=== PATIENT | male | born 1955 | race Caucasian/White ===

== ENCOUNTER 2020-02-11 15:45 | Inpatient (IN) | payer MEDICARE, SELFPAY ==
--- NOTE | ~2020-02-11 | XR_ITS ---
EXAMINATION: XR chest 1V portable 02/11/2020 19:09 INDICATION: Hyperglycemia. Dyspnea. PROCEDURE: AP portable chest COMPARISON: 09/18/2012 FINDINGS: The lungs are clear. The cardiomediastinal silhouette is within normal limits. There are no pleural effusions. There is no pneumothorax suspected. IMPRESSION: 1: NO ACUTE CARDIOPULMONARY DISEASE. Reviewed, dictated and finalized at location A.
[2020-02-11 16:07] VITALS: BP 116/73; PULSE 76; RESP 16; TEMP 37.1; O2SAT 95
[2020-02-11 16:17] LABS: Glucose Point of Care > 500 (65-105)
[2020-02-11 17:15] LABS: Basophils Percent Auto 0.3 % (0.2-1.2); Eosinophils Absolute Auto 0.1 K/mm3 (0-0.3); Eosinophils Percent Auto 0.7 % (0-4.4); Hematocrit 44.7 % (42.0-52.0); Hemoglobin 15.9 g/dL (14.0-18.0); Immature Granulocyte Absolute 0.06 K/mm3 (0.00-0.031); Immature Granulocyte Percent A 0.6 % (0-0.5); Lymphocytes Absolute Auto 3.59 K/mm3 (0.9-3.2); Lymphocytes Percent Auto 33.5 % (18.3-44.2); Mean Corpuscular HGB Conc 35.6 g/dl (32-36); Mean Corpuscular Hemoglobin 30.1 pg (26-34); Mean Corpuscular Volume 84.7 fl (80-100); Monocytes Absolute Auto 0.8 K/mm3 (0.1-0.6); Monocytes Percent Auto 7.4 % (2.6-8.5); Neutrophils Absolute Auto 6.2 K/mm3 (1.3-6.7); Neutrophils Percent Auto 57.5 % (45.5-73.1); Platelet Count Result 282 k/mm3 (150-375); Red Blood Count 5.28 M/mm3 (4.6-6.20); Red Cell Distribution Width 11.9 % (11.5-14.5); White Blood Count 10.7 K/mm3 (4.5-10.0)
[2020-02-11 17:18] LABS: Add Urine Microscopic? YES; Appearance Urine Clear (Clear); Bilirubin Urine Negative (Negative); Blood Urine Negative (Negative); Color Urine Straw (Yellow); Glucose Urine UA 3+ mg/dL (Negative); Ketones Urine Trace mg/dL (Negative); Leukocyte Esterase Ur Negative LEU/UL (Negative); Nitrate Urine Negative (Negative); Protein Urine Negative (Negative); RBC Urine 0-2 /hpf (0-2); Urobilinogen Urine Negative mg/dL (<2.0); WBC Urine 0-3 /hpf
[2020-02-11 17:25] LABS: Alanine Aminotransferase 32 U/L (4-50); Albumin Level 4.2 g/dL (3.5-5.1); Alkaline Phosphatase 96 U/L (38-126); Anion Gap 17.9 mmol/L (7-16); Aspartate Amino Transferase 24 U/L (17-59); Bilirubin,Total 0.5 mg/dL (0.2-1.3); Blood Urea Nitrogen 34 mg/dL (9-20); Calcium 9.2 mg/dL (8.4-10.2); Carbon Dioxide 22 mmol/L (22-30); Chloride 88 mmol/L (98-107); Estimated CRCL calculation 61 ml/min; Estimated Glomerular Filt Rate > 60; Glucose 451 mg/dL (75-110); Magnesium 1.9 mg/dL (1.6-2.3); Phosphorus 3.7 mg/dL (2.5-4.5); Potassium 3.9 mmol/L (3.4-5.0); Sodium 124 mmol/L (137-145)
[2020-02-11] MEDS: SODIUM CHLORIDE 0.9% IV 1,000 ML 999 ML IV CONT ×2 (17:29→17:50)
--- NOTE | 2020-02-11 17:40 | PC.NURSE ---
verbal order to hold insulin drip at this time per Blas LAUGHLIN
[2020-02-11] MEDS: INSULIN HUMAN REGULAR (*BKC) 100 UNITS/ML 10 UNITS IV PUSH (17:47)
[2020-02-11 17:59] VITALS: BP 119/86; PULSE 71; RESP 14; O2SAT 100
[2020-02-11 18:11] LABS: Alveolar/Arterial O2 Gradient 22.4 mmHg; Base Excess ABG -3.2 mEq/l (+/-2.0); Carboxyhemoglobin 0.5 % THb (0-2.0); Fractional Inspired Oxygen 21 %; HCO3 ABG 19.7 mEq/l (22.0-26.0); Methemoglobin ABG 0.2 %THb (0-1.5); Oxygen Content ABG 20.3 %vol (16.0-22.0); Oxygen Saturation ABG 97.3 % (95.0-100.0); Oxyhemoglobin 95.9 % THb (90.0-100.0); PCO2 ABG 29.9 mmHg (35.0-45.0); PO2 ABG 91.5 mmHg (80.0-100.0); PO2 FiO2 Ratio Arterial Blood 4.36 %; Reduced Hemoglobin 3.4 %THb (0-5.0); pH ABG 7.437 (7.350-7.450)
--- NOTE | 2020-02-11 18:11 | ED.GENADULT ---
HPI - General Adult General Chief complaint: Unspecified <QIAN Haq Last Filed: 02/11/20 18:51> Stated complaint: confusion, wobbly <QIAN Haq Last Filed: 02/11/20 18:51> Time Seen by Provider: 02/11/20 16:49 <QIAN Haq Last Filed: 02/11/20 18:51> Source: patient <QIAN Haq Last Filed: 02/11/20 18:51> Mode of arrival: ambulatory <QIAN Haq Last Filed: 02/11/20 18:51> Limitations: no limitations <QIAN Haq Last Filed: 02/11/20 18:51> History of Present Illness HPI narrative: Patient is a 64-year-old male who presents to emergency department for evaluation of feeling fatigued and not well over the course of the last month noting that he quit taking his diabetic medications patient in the last week began his diabetic medications again patient denies recent illness vomiting diarrhea chest pain shortness of breath has not been seen for this complaint presents per private vehicle in no distress <QIAN Haq Last Filed: 02/11/20 18:51> Related Data Home medications: Home Medications Medication Instructions Recorded Confirmed carvedilol 02/11/20 cyanocobalamin (vitamin B-12) 1,000 mcg PO DAILY 02/11/20 felodipine mg PO 02/11/20 glucosamine-chondroitin [Osteo 2 tablet PO TID 02/11/20 Bi-Flex] indapamide mg 02/11/20 rclax-[id number]-epa-fish oil [[place]-3 cap PO 02/11/20 Fish Oil] pioglitazone-metformin tablet 02/11/20 quinapril mg 02/11/20 <QIAN Haq Last Filed: 02/11/20 18:51> Allergies/adverse reactions: Allergies Allergy/AdvReac Type Severity Reaction Status Date / Time atorvastatin Allergy Unknown Unknown Verified 02/11/20 16:44 Sulfa (Sulfonamide Allergy Unknown Unknown Verified 02/11/20 16:44 Antibiotics) sulfanilamide Allergy Unknown Unknown Verified 02/11/20 16:44 <QIAN Haq Last Filed: 02/11/20 18:51> Review of Systems Review of Systems: All systems reviewed & are unremarkable except as noted in HPI and below <Ryan Garcia PA-C - Last Filed: 02/11/20 18:51> [facility] Past Medical History Medical History: Medical History (Updated 02/11/20 @ 18:50 by Ryan Garcia PA-C) Diabetes mellitus Hx of medication noncompliance Hypertension Obesity <Ryan Garcia PA-C - Last Filed: 02/11/20 18:51> Family History Family History: Family History Mother Family history of obesity Hypertension Family history of elevated blood lipids Family history of diabetes mellitus in first degree relative Family history of heart disease in male family member before age 55 Family history of congestive heart failure Sibling Family history of diabetes mellitus in first degree relative Family history of lupus erythematosus Other Diabetes mellitus Family history of kidney disease <Ryan Garcia PA-C - Last Filed: 02/11/20 18:51> Social History Social History: Social History Smoking status: Never smoker Alcohol intake: never Substance use type: marijuana <Ryan Garcia PA-C - Last Filed: 02/11/20 18:51> Exam Narrative: Exam Narrative: GENERAL: Well-appearing, obese, and in no acute distress. HEAD: Normocephalic, atraumatic. EYES: PERRLA and EOMI. ENT: Nares clear, no rhinorrhea or epistaxis. Mucous membranes moist. Oropharynx without tonsillar hypertrophy exudate or other lesions. CHEST: Clear to auscultation. No respiratory distress. No wheezes rales or rhonchi HEART: Regular rate and rhythm. No murmur heard. Normal peripheral pulses. ABDOMEN: Soft, nontender, nondistended EXTREMITIES: Normal range of motion. No edema. SKIN: Warm, dry, no rash. NEURO: No focal deficits. Alert and oriented x3. PSYCH: Normal mood and affect. <Ryan Garcia PA-C - Last F
[2020-02-11 18:12] LABS: Device ROOM AIR; Site Drawn RIGHT BRACHIAL
[2020-02-11 18:32] LABS: Glucose Point of Care 363 (65-105)
--- NOTE | 2020-02-11 20:00 | PM.IMHP ---
H&P: HPI History of Present Illness Chief complaint: Weakness and fatigue. Narrative: Michael Salinas is a very pleasant 64-year-old male with type 2 diabetes mellitus, hypertension, and dyslipidemia who presented to the emergency department earlier today at the direction of his primary care provider for evaluation of weakness and fatigue that has been ongoing for a couple of months. He stopped taking his oral hypoglycemics last year after reading about the side effects and he admits that he has not been checking his glucose since that time. A couple of weeks ago he saw his primary care provider for evaluation of fatigue, occasional lightheadedness on standing, nausea, generalized malaise, and indigestion. At that time he reported four tick bites recently, and it sounds as though he was prescribed doxycycline. He was also told to resume his oral hypoglycemics as lab work demonstrated hyperglycemia. He completed the course of antibiotics but felt no better, and when he called her today he was instructed to come to the emergency department. On arrival to the emergency department, he was found to have a random glucose of 451 with evidence of dehydration is he is being admitted in this setting. Since receiving IV fluid rehydration insulin, he reports feeling much better. With further questioning he has been experiencing blurry vision, polydipsia, and polyuria for several months. He denies nonhealing wounds and paresthesias. He has not had fever, chills, or sweats. No vertigo. No focal weakness. He denies chest pain, pleuritic pain, palpitations, and shortness of breath. No nausea, vomiting, diarrhea, or dysuria. Review of Systems Review of Systems: Narrative: Twelve systems were reviewed with pertinent positives and negatives as per HPI. No history of sleep apnea. He denies orthopnea, PND, and daytime somnolence. He does not check his glucose at home. No recent travel or sick contacts. Occasional indigestion. No melena or hematochezia. Except as documented, all other systems were reviewed and are negative. [facility] Past Medical History Medical History (Updated 02/11/20 @ 23:31 by Faith Bender PA-C) Bladder stones Degenerative disc disease Diverticulitis Hyperlipidemia Hypertension Kidney stones Uncontrolled type 2 diabetes mellitus Hemoglobin A1c was 13% on 02/11/2020. Surgical History Surgical History (Updated 02/11/20 @ 23:29 by Faith Bender PA-C) History of appendectomy History of cystoscopy History of lithotripsy Family History Family History Mother Family history of heart disease in male family member before age 55 Family history of elevated blood lipids Family history of diabetes mellitus in first degree relative Family history of obesity Family history of congestive heart failure Hypertension Sibling Family history of diabetes mellitus in first degree relative Family history of lupus erythematosus Mesothelioma Other Diabetes mellitus Family history of kidney disease Social History Social History (Updated 02/11/20 @ 23:30 by Faith Bender PA-C) Social History: Surrogate decision maker: Dennise Salinas, . Code status: Full code. Smoking status: Never smoker Alcohol intake: never Substance use: current Substance use type: marijuana Additional living arrangements comments: Lives with his and son in [place]. 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 Spiritual care concerns: No Meds Home Medications and Allergies Home Medications Medication Instructions Recorded Confirmed Type carvedilol 6.25 mg PO Q12H 02/11/20 02/11/20 History cyanocobalamin (vitamin B-12) 1,000 mcg PO DAILY 02/11/20 02/11/20 History felodipine 10 mg PO DAILY 02/11/20 02/11/20 History glucosamine-chondroitin [Osteo 1 tablet PO BID 02/11/20 02/11/20 History Bi-Flex]
[2020-02-11 20:30] VITALS: BP 151/91; PULSE 75; RESP 20; TEMP 36.4; O2SAT 99; BMI 36.1
[2020-02-11 20:37] VITALS: PULSE 79
[2020-02-11 20:40] LABS: Glucose Point of Care 276 (65-105)
[2020-02-11] MEDS: LACTATED RINGERS 1,000 ML 125 ML IV CONT (20:53)
--- NOTE | 2020-02-11 21:11 | ADMGEN ---
This patient, Michael Salinas, was admitted to IMU Room 212-01. Patient/family oriented to hospital policies and general routines including ID bracelet, bed and alarms, visiting hours, pain management, procedures, bathroom and other care routines, personal items, smoking policy, room service/diet, and visiting hours. Valuables list has been completed. Information on how to activate the Rapid Response Team has been discussed. Patient/Family are encouraged to report perceived risks to care and to ask questions if they do not understand what they are told or what they should do.
[2020-02-11 21:14] LABS: Anion Gap 13.6 mmol/L (7-16); Blood Urea Nitrogen 29 mg/dL (9-20); Calcium 8.5 mg/dL (8.4-10.2); Carbon Dioxide 26 mmol/L (22-30); Chloride 93 mmol/L (98-107); Estimated CRCL calculation 71 ml/min; Estimated Glomerular Filt Rate > 60; Glucose 279 mg/dL (75-110); Potassium 3.6 mmol/L (3.4-5.0); Sodium 129 mmol/L (137-145)
[2020-02-11] MEDS: FAMOTIDINE 20 MG/2 ML VIAL IV PUSH (21:25)
[2020-02-11 22:00] VITALS: PULSE 84
[2020-02-11 23:24] VITALS: BP 115/76; PULSE 72; RESP 18; TEMP 36.4; O2SAT 99
[2020-02-12] VITALS (10 sets, daily range): BP systolic 95–119; BP diastolic 60–70; PULSE 57–77; RESP 18–20; TEMP 35.7–37.1; O2SAT 97–98; BMI 36.1
[2020-02-12 00:35] LABS: Glucose Point of Care 406 (65-105)
[2020-02-12] MEDS: carvediloL 6.25 MG TABLET PO ×2 (00:46→08:42)
[2020-02-12] MEDS: lisinopriL 20 MG TABLET 40 MG PO ×2 (00:47→08:42)
[2020-02-12] MEDS: INSULIN GLARGINE (*BKC) 100 UNITS/ML 20 UNITS SUB-Q (00:48)
[2020-02-12] MEDS: INSULIN ASPART (*BKC) 100 UNITS/ML 10 UNITS SUB-Q (00:59)
[2020-02-12 05:29] LABS: Glucose Point of Care 252 (65-105)
[2020-02-12 05:31] LABS: Alanine Aminotransferase 24 U/L (4-50); Albumin Level 3.3 g/dL (3.5-5.1); Alkaline Phosphatase 44 U/L (38-126); Anion Gap 9.2 mmol/L (7-16); Aspartate Amino Transferase 23 U/L (17-59); Bilirubin,Total 0.6 mg/dL (0.2-1.3); Blood Urea Nitrogen 21 mg/dL (9-20); Calcium 8.2 mg/dL (8.4-10.2); Carbon Dioxide 27 mmol/L (22-30); Chloride 94 mmol/L (98-107); Estimated CRCL calculation 99 ml/min; Estimated Glomerular Filt Rate > 60; Glucose 220 mg/dL (75-110); Magnesium 1.9 mg/dL (1.6-2.3); Potassium 3.2 mmol/L (3.4-5.0); Sodium 127 mmol/L (137-145)
[2020-02-12] MEDS: LACTATED RINGERS 1,000 ML 100 ML IV CONT (05:31)
[2020-02-12 08:15] LABS: Glucose Point of Care 237 (65-105)
[2020-02-12] MEDS: CYANOCOBALAMIN 1,000 MCG TABLET 1000 MCG PO (08:42)
[2020-02-12] MEDS: FELODIPINE 5 MG TAB CR 10 MG PO (08:42)
[2020-02-12] MEDS: INSULIN ASPART (*BKC) 100 UNITS/ML SUB-Q ×2 (08:42→12:42)
[2020-02-12] MEDS: INDAPAMIDE 1.25 MG TABLET PO (08:42)
[2020-02-12 11:57] LABS: Glucose Point of Care 409 (65-105)
--- NOTE | 2020-02-12 14:01 | PCNSR ---
On 02/12/20, the student, Blas Alcala, provided care and completed [facility] documentation on this patient. I have reviewed the student's documentation and agree with the findings.
--- NOTE | 2020-02-14 09:40 | PM.DS ---
DS: Admitting Diagnosis Admitting Diagnosis Admitting Diagnosis: Date of discharge Type 2 diabetes mellitus with hyperglycemia DS: Discharge Diagnosis Discharge Diagnosis (1) Uncontrolled type 2 diabetes mellitus: Code(s): E11.65 - Type 2 diabetes mellitus with hyperglycemia Status: Acute Assessment and Plan: Pt is meant to be on pioglitazone/metformin, oral hypoglycemic medications, unfortunately, pt has been missing his medications Hemoglobin A1c is 13%, thus will start on Lantus tonight. Dietitian and in service educator consulted. Pt started on solostar lantus pen on discharge and adviced to follow with DM educator and stick to DM diet Pt would like to go home today, sugars appear in the 200s today Pt given glucometer, test trips, pen needle and solostar script on dischrage. Pt here for one day in the hospital meets observation status (2) Dehydration: Code(s): E86.0 - Dehydration Status: Resolved Assessment and Plan: Resolved after fluid hydration (3) Hyponatremia: Code(s): E87.1 - Hypo-osmolality and hyponatremia Status: Acute Assessment and Plan: Mild hyponatremia chronic, sodium presently 127 Likely due to indapamide. (4) Hypertension: Code(s): I10 - Essential (primary) hypertension Status: Acute Assessment and Plan: Blood pressures were reviewed and they are well controlled. Continue antihypertensives and monitor. DS: Summary Time Spent with Patient Time attestation: Total time spent providing and/or coordinating discharge services:40 minutes on day of discharge Exam Const: General: well developed Nutritional Appearance: well nourished HENMT: Head: normocephalic Eyes: General: appearance normal, both eyes and all related structures Pupils: Equal, round and reactive pupils present Neck: Neck: supple Chest: Chest palpation & inspection: normal inspection of the chest Resp: Effort & Inspection: normal respiratory effort Auscultation: clear to auscultation bilaterally Cardio: Jugular venous distension: no JVD Rhythm: regular rhythm Heart sounds: S1 normal heart sound present and S2 normal heart sound present GI: Inspection: normal to inspection GI Palp: No abdominal tenderness, Yes Soft to palpation and No Tenderness to palpation present (GI) Auscultation: normal bowel sounds Skin: General skin exam: normal color and dry skin Neuro: Cranial nerves: Yes CN's II-XII intact bilaterally and Yes Equal, round and reactive pupils present Cognition (Neuro): normal cognition Speech: normal speech Motor exam (neuro): 5/5 motor strength present throughout Extrem: General: normal to inspection Psych: Appearance: grossly normal Mental Status: mental status grossly normal Discharge Plan Discharge Attending physician on discharge: Petty Patel Consulting providers: Ryan Garcia Discharging Clinician: Petty Patel Anticipated Discharge Date/Time: 02/12/20 16:40 Patient Disposition: Home, Self-Care Activity: as tolerated Diet: diabetic Discharge Instructions: Pt to start taking lantus at night Pt to follow with in service educator on discharge Compliance to DM medications Compliance to ACCUCHECK monitoring Patient Instructions: Pain Management (GEN) Stand Alone Forms: General Discharge Information Follow-up/Referrals: Jett,QIAN King [Primary Care Provider] - Discharge Medications: New metformin [Glucophage] 850 mg Tablet 850 mg PO QPM Qty: 30 RF: 3 Lantus Solostar U-100 Insulin 100 unit/mL (3 mL) insulin pen 20 unit SUB-Q QPM Qty: 3 RF: 3 (DME) pen needle, diabetic [Advocate Pen Needle] 29 gauge x 1/2
== END 2020-02-12 13:35 | disposition home or self-care (01) | DRG 638 ==
LOC: ANHED 19:02 → ANHIMU 21:13
PROVIDERS: Emergency Medicine Emergency Medical Services; Physician Assistant; Admitting Provider Internal Medicine; Emergency Provider Emergency Medicine; PCP Physician Assistant; Visit Provider Family Medicine
DX: E11.65 Type 2 diabetes mellitus with hyperglycemia (principal); E87.1 Hypo-osmolality and hyponatremia; T46.5X5A Adverse effect of other antihypertensive drugs, initial encounter; E86.0 Dehydration; I10 Essential (primary) hypertension; E78.5 Hyperlipidemia, unspecified; E66.9 Obesity, unspecified; Z68.36 Body mass index [BMI] 36.0-36.9, adult; Z91.14 Patient's other noncompliance with medication regimen; Z79.899 Other long term (current) drug therapy
CPT/HCPCS: 36415; 36600; 71045; 80048; 80053; 81001; 82010; 82375; 82805; 82948; 83036; 83050; 83735; 84100; 84443; 85025; 96361; 96374; 99285; A9270; J1815; J7030; J7120

== ENCOUNTER → 2021-11-17 13:30 | Outpatient (CLI) | payer MEDICARE, SELFPAY ==
--- NOTE | ~2021-11-17 | MR_ITS ---
EXAMINATION: MR lumbar spine wo con DATE: 11/17/2021 13:59 INDICATION: Low back pain. Degeneration of lumbar intervertebral disc. TECHNIQUE: Magnetic resonance imaging (MRI) of the lumbar spine was performed without intravenous con trast. Sequences included sagittal T2-weighted FSE, sagittal T2-weighted FS FSE, sagittal T1-weighted FSE, and axial T2-weighted FSE. COMPARISON: Lumbar spine MRI 08/15/2017 FINDINGS: There is 3 degrees levocurvature of lumbar spine. There is mild chronic height loss of T11 and T12 vertebral bodies. There are Schmorl's nodes at T10-T11 and T11-T12. There is mildly decreased disc height at T11-T12. Epidural lipomatosis is noted. The distal spinal cord signal intensity is no rmal. The conus medullaris is at T12-L1. The following disc levels are specifically discussed: L1-L2: The disc does not extend beyond the endplate margin. There is mild bilateral facet joint osteo arthritis. There is no neural foraminal stenosis. There is no central canal stenosis. L2-L3: The disc does not extend beyond the endplate margin. There is mild right facet joint osteoarth ritis. There is no neural foraminal stenosis. There is no central canal stenosis. L3-L4: The disc is mildly bulging. There is mild bilateral facet joint osteoarthritis. There is mild bilateral neural foraminal stenosis. There is no central canal stenosis. L4-L5: The disc is bulging and has an annular fissure. There is severe bilateral facet joint osteoart hritis. There is moderate bilateral neural foraminal stenosis. There is mild central canal stenosis. L5-S1: The disc does not extend beyond the endplate margin. There is severe right and moderate left f acet joint osteoarthritis. There is mild bilateral neural foraminal stenosis. There is no central can al stenosis. IMPRESSION: 1. Mild lumbar spondylosis, stable from 08/15/2017. Reviewed, dictated and finalized at location B.
== END ==
PROVIDERS: PCP Physician Assistant; Visit Provider Physician Assistant
DX: M51.36 Other intervertebral disc degeneration, lumbar region (principal); M47.896 Other spondylosis, lumbar region
CPT/HCPCS: 72148

== ENCOUNTER 2024-10-24 00:31 | Day surgery (SDC) | payer MEDICARE, SELFPAY ==
[2024-10-16 14:19] VITALS: BMI 36.6
--- OUTSIDE RECORDS SUMMARY | 2024-10-24 00:34 | XMS_ITS | Data Portability ---
Author Organization [place] [facility], Main Office Address [address] [place] [address] Assessment Encounter Date Assessment Date Assessment LastModified by Organization Details LastModified Time 06/21/2023 06/21/2023 colonoscopy 2019 UTD [email or web address] Not available 06/21/2023 14:57:44 Plan of Treatment Reminders Order Date Submit Date Provider Last Modified By Organization Details Last Modified Time Details Appointments None recorded. Lab PSA, total, serum or plasma 2022 023 [email or web address] [facility], 2022 Christina [address], [place], [address], 3 14:49:41 HbA1c (hemoglobin A1c), blood 2022 023 [email or web address] 146 [facility], 2022 Christina Nicole[address], [place], [address], 3 12:14:26 HbA1c (hemoglobin A1c), blood 2022 023 [email or web address] [facility], 2022 Christina [address], [place], [address], 3 14:44:33 microalbumi n, urine 2022 023 [email or web address] [facility], 2022 Christina [address], [place], [address], 3 14:49:51 albumin/cre atinine, mass ratio, urine 2022 023 [email or web address] [facility], 2022 Christina [address], [place], [address], 3 14:50:02 CBC w/ auto diff 2022 023 [place] [address] [facility], 2022 Christina [address], [place], [address], 3 12:14:27 hepatic function panel, serum 2022 023 [place] [address] [facility], 2022 Christina [address], [place], [address], 3 12:14:27 BMP, serum or plasma 2022 023 [place] [address] [facility], 2022 Christina Nicole[address], [place], [address], 3 12:14:27 TSH + free T4, serum 2022 023 ALEX [facility], 2022 Christina Nicoel[address], [place], [address], 3 16:00:05 BMP, serum or plasma 2022 023 [email or web address] [facility], 2022 Christina Nicole[address], [place], [address], 3 14:44:58 hepatic function panel, serum 2022 023 [email or web address] [facility], 2022 Christina [address], [place], [address], 3 14:45:46 CBC w/ auto diff 2022 023 [email or web address] [facility], 2022 Christina [address], [place], [address], 3 14:49:32 lipid panel, serum 2022 023 [email or web address], 2022 Christina Nicole[address], [place], [address], 3 12:14:26 lipid panel, serum 2022 023 [email or web address] [facility], 2022 Christina [address], [place], [address], 14:44:47 Referral None recorded. Procedures None recorded. Surgeries None recorded. Imaging None recorded. Medication Orders Mounjaro 2.5 mg/0.5 mL subcutaneou s pen injector 2022 023 [id number], [address], [place], [place], [id number], 14:52:51 Patient TargetsNo targets recorded. Patient InstructionsNo instructions recorded. Reason for Referral None Reported. Results Created Date Observation Date Name Description Value Unit Range Abnormal Flag Note LastModifiedBy Organization Detail LastModifiedTime 05/12/2005/13/2021 PROST ATE-S PECIF IC AG prostate specific Ag 1.5 NG/mL 0.0-4. 0 Mykel ECLIA metho dolog y. Accor ding to the [employer]i can [employer] n, Serum PSA shoul d decre ase and remai n at undet ectab le level s after radic al prost atect vidhi. The AUA defin es bioch emica l recur rence as an initi al PSA value 0.2 ng/mL or great er follo wed by a subse quent confi rmato ry PSA value 0.2 ng/mL or great er. Value s obtai hugo with diffe rent assay metho ds or kits canno t be used inter post eamisaely . Resul ts canno t be inter prete d as absol pilar evide nce of the prese nce or absen ce of ilana rangel se. Not Available [facility] ([facility]) [address], [place], [address], 05/13/2021 10:37:13 05/12/20 21 05/13/2021 HEMOG LOBIN A1C hemoglobin A1C 7.4 % 4.8-5. 6 above high normal Predi abete s: 5.7 - 6.4 Diabe bernie: >6.4 Glyce mabel contr ol for adult s with diabe bernie: <7.0 Not Available [facility] ([facility]) [address] [place], [address], 05/13/2021 10:37:13 05/12/20 21 05/13/2021 ALBUM IN/CR EATIN INE RATIO ,URIN E creatinine, urine 62.3 mg/dL not estab. Not Available [facility] ([facility]) [address] [place], [address], 05/13/2021 10:37:12 05/12/20 21 05/13/2021 ALBUM IN/CR EATIN INE RATIO ,URIN E albumin, urine 5.2 ug/mL not estab. Not Available [facility] ([facility]) [address] [place], [address], 05/13/2021 10:37:12 05/12/20 21 05/13/2021 ALBUM IN/CR EATIN INE RATIO ,URIN E alb/creat ratio 8 mg/g_ creat 0-29 Lanny l: 0 - 29 Moder ately incre ased: 30 - 300 Sever serenity incre ased: >300 Not Available [facility] ([facility]) [address] [place], [address], 05/13/2021 10:37:12 05/12/20 21 05/13/2021 HEPAT IC FUNCT ION PANEL (7) protein, total 7.1 g/dL 6.0-8. 5 Not Available [facility] ([facility]) [address] [place], [address], 05/13/2021 10:37:12 05/12/20 21 05/13/2021 HEPAT IC FUNCT ION PANEL (7) albumin 4.5 g/dL 3.8-4. 8 Not Available [facility] ([facility]) [address] [place], [address], 05/13/2021 10:37:12 05/12/20 21 05/13/2021 HEPAT IC FUNCT ION PANEL (7) bilirubin, total 0.8 mg/dL 0.0-1. 2 Not Available [facility] ([facility]) [address], [place], [address], 05/13/2021 10:37:12 05/12/20 21 05/13/2021 HEPAT IC FUNCT ION PANEL (7) bilirubin, direct 0.23 mg/dL 0.00-0 .40 Not Available [facility] ([facility]) [address], [place], [address], 05/13/2021 10:37:12 05/12/20 21 05/13/2021 HEPAT IC FUNCT ION PANEL (7) alkaline phosphatase 56 IU/L 44-121 Ple ase note refer ence inter joseph post e Not Available [facility] ([facility]) [address] [place], [address], 05/13/2021 10:37:12 05/12/20 21 05/13/2021 HEPAT IC FUNCT ION PANEL (7) AST (SGOT) 20 IU/L 0-40 Not Available [facility] ([facility]) [address], [place], [address], 05/13/2021 10:37:12 05/12/20 21 05/13/2021 HEPAT IC FUNCT ION PANEL (7) ALT (SGPT) 24 IU/L 0-44 Not Available [facility] ([facility]) [address], [place], [address], 05/13/2021 10:37:12 05/12/20 21 05/13/2021 LIPID PANEL cholesterol, total 150 mg/dL 100-19 9 Not Available [facility] ([facility]) [address], [place], [address], 05/13/2021 10:37:11 05/12/20 21 05/13/2021 LIPID PANEL triglyceride s 124 mg/dL 0-149 Not Available [facility] ([facility]) [address] [place], [address], 05/13/2021 10:37:11 05/12/20 21 05/13/2021 LIPID PANEL HDL cholesterol 44 mg/dL >39 Not Available [facility] ([facility]) [address] [place], [address], 05/13/2021 10:37:11 05/12/20 21 05/13/2021 LIPID PANEL VLDL cholesterol fanny 22 mg/dL 5-40 Not Available [facility] ([facility]) [address], [place], [address], 05/13/2021 10:37:11 05/12/20 21 05/13/2021 LIPID PANEL LDL chol calc ([facility]) 84 mg/dL 0-99 Not Available [facility] ([facility]) [address], [place], [address], 05/13/2021 10:37:11 05/12/20 21 05/13/2021 LIPID PANEL comment: manager [place] Not Available [facility] ([facility]) [address] [place], [address], 05/13/2021 10:37:11 05/12/20 21 05/13/2021 BASIC METAB OLIC PANEL (8) glucose 126 mg/dL 65-99 above high normal Not Available [facility] ([facility]) [address] [place], [address], 05/13/2021 10:37:11 05/12/20 21 05/13/2021 BASIC METAB OLIC PANEL (8) BUN 10 mg/dL 8-27 Not Available [facility] ([facility]) [address], [place], [address], 05/13/2021 10:37:11 05/12/2005/13/2021 BASIC METAB OLIC PANEL (8) creatinine 0.82 mg/dL 0.76-1 .27 Not Available [facility] ([facility]) [address], [place], [address], 05/13/2021 10:37:11 05/12/20 21 05/13/2021 BASIC METAB OLIC PANEL (8) eGFR if nonafricn AM 93 mL/mi n/1.7 3 >59 Not Available [facility] ([facility]) [address], [place], [address], 05/13/2021 10:37:11 05/12/20 21 05/13/2021 BASIC METAB OLIC PANEL (8) eGFR if africn AM 107 mL/mi n/1.7 3 >59 In accor dance with recom menda tions from the NKF-A SN Task force , [facility] is in the proce ss of updat ing its eGFR calcu latio n to the 2020 CKD-E PI creat inine equat ion that estim ates kidne y funct ion witho ut a race varia ble. Not Available [facility] ([facility]) [address], [place], [address], 05/13/2021 10:37:11 05/12/2005/13/2021 BASIC METAB OLIC PANEL (8) BUN/creatini ne ratio 12 10-24 Not Available [facility] ([facility]) [address], [place], [address], 05/13/2021 10:37:11 05/12/20 21 05/13/2021 BASIC METAB OLIC PANEL (8) sodium 139 mmol/ L 134-14 4 Not Available [facility] ([facility]) [address], [place], [address], 05/13/2021 10:37:11 05/12/20 21 05/13/2021 BASIC METAB OLIC PANEL (8) potassium 4.0 mmol/ L 3.5-5. 2 Not Available [facility] ([facility]) [address] [place], [address], 05/13/2021 10:37:11 05/12/20 21 05/13/2021 BASIC METAB OLIC PANEL (8) chloride 97 mmol/ L 96-106 Not Available [facility] ([facility]) [address] [place], [address], 05/13/2021 10:37:11 05/12/2005/13/2021 BASIC METAB OLIC PANEL (8) carbon dioxide, total 25 mmol/ L 20-29 Not Available [facility] ([facility]) [address] [place], [address], 05/13/2021 10:37:11 05/12/2005/13/2021 BASIC METAB OLIC PANEL (8) calcium 9.6 mg/dL 8.6-10 .2 Not Available [facility] ([facility]) [address] [place], [address], 05/13/2021 10:37:11 05/12/2005/13/2021 URINA LYSIS , COMPL ETE specific gravity 1.010 1.005- 1.030 Not Available [facility] ([facility]) [address] [place], [address], 05/13/2021 10:37:10 05/12/2005/13/2021 URINA LYSIS , COMPL ETE pH 6.0 5.0-7. 5 Not Available [facility] ([facility]) [address] [place], [address], 05/13/2021 10:37:10 05/12/20 21 05/13/2021 URINA LYSIS , COMPL ETE urine-color yellow yellow Not Available [facility] ([facility]) [address], [place], [address], 05/13/2021 10:37:10 05/12/2005/13/2021 URINA LYSIS , COMPL ETE appearance clear clear Not Available [facility] ([facility]) [address], [place], [address], 05/13/2021 10:37:10 05/12/20 21 05/13/2021 URINA LYSIS , COMPL ETE WBC esterase negati ve negati ve Not Available [facility] ([facility]) [address] [place], [address], 05/13/2021 10:37:10 05/12/2005/13/2021 URINA LYSIS , COMPL ETE protein negati ve negati ve/tra ce Not Available [facility] ([facility]) [address], [place], [address], 05/13/2021 10:37:10 05/12/2005/13/2021 URINA LYSIS , COMPL ETE glucose negati ve negati ve Not Available [facility] ([facility]) [address], [place], [address], 05/13/2021 10:37:10 05/12/20 21 05/13/2021 URINA LYSIS , COMPL ETE ketones negati ve negati ve Not Available [facility] ([facility]) [address] [place], [address], 05/13/2021 10:37:10 05/12/2005/13/2021 URINA LYSIS , COMPL ETE occult blood negati ve negati ve Not Available [facility] ([facility]) [address] [place], [address], 05/13/2021 10:37:10 05/12/20 21 05/13/2021 URINA LYSIS , COMPL ETE bilirubin negati ve negati ve Not Available [facility] ([facility]) [address], [place], [address], 05/13/2021 10:37:10 05/12/20 21 05/13/2021 URINA LYSIS , COMPL ETE urobilinogen ,semi-qn 0.2 mg/dL 0.2-1. 0 Not Available [facility] ([facility]) [address], [place], [address], 05/13/2021 10:37:10 05/12/2005/13/2021 URINA LYSIS , COMPL ETE nitrite, urine negati ve negati ve Not Available [facility] ([facility]) [address], [place], [address], 05/13/2021 10:37:10 05/12/2005/13/2021 URINA LYSIS , COMPL ETE microscopic examination commen t Micro scopi c follo ws if indic ated. Not Available [facility] ([facility]) [address], [place], [address], 05/13/2021 10:37:10 05/12/2005/13/2021 URINA LYSIS , COMPL ETE microscopic examination see below: Micro scopi c was indic ated and was perfo rmed. Not Available [facility] ([facility]) [address], [place], [address], 05/13/2021 10:37:10 05/12/2005/13/2021 URINA LYSIS , COMPL ETE WBC none seen /hpf 0 - 5 Not Available [facility] ([facility]) [address] [place], [address], 05/13/2021 10:37:10 05/12/20 21 05/13/2021 URINA LYSIS , COMPL ETE RBC none seen /hpf 0 - 2 Not Available [facility] ([facility]) [address] [facility] [place], [address], 05/13/2021 10:37:10 05/12/20 21 05/13/2021 URINA LYSIS , COMPL ETE epithelial cells (non renal) none seen /hpf 0 - 10 Not Available [facility] ([facility]) [address], [place], [address], 05/13/2021 10:37:10 05/12/20 21 05/13/2021 URINA LYSIS , COMPL ETE epithelial cells (renal) manager [place] Not Available [facility] ([facility]) [address], [place], [address], 05/13/2021 10:37:10 05/12/20 21 05/13/2021 URINA LYSIS , COMPL ETE casts none seen /lpf none seen Not Available [facility] ([facility]) [address], [place], [address], 05/13/2021 10:37:10 05/12/20 21 05/13/2021 URINA LYSIS , COMPL ETE cast type manager [place] Not Available [facility] ([facility]) [address], [place], [address], 05/13/2021 10:37:10 05/12/20 21 05/13/2021 URINA LYSIS , COMPL ETE crystals manager [place] Not Available [facility] ([facility]) [address], [place], [address], 05/13/2021 10:37:10 05/12/20 21 05/13/2021 URINA LYSIS , COMPL ETE crystal type manager [place] Not Available [facility] ([facility]) [address] [place], [address], 05/13/2021 10:37:10 05/12/20 21 05/13/2021 URINA LYSIS , COMPL ETE mucus threads manager [place] Not Available [facility] ([facility]) [address] [place], [address], 05/13/2021 10:37:10 05/12/2005/13/2021 URINA LYSIS , COMPL ETE bacteria none seen none seen/f ew Not Available [facility] ([facility]) [address], [place], [address], 05/13/2021 10:37:10 05/12/2005/13/2021 URINA LYSIS , COMPL ETE yeast manager [place] Not Available [facility] ([facility]) [address], [place], [address], 05/13/2021 10:37:10 05/12/2005/13/2021 URINA LYSIS , COMPL ETE trichomonas manager [place] Not Available [facility] ([facility]) [address], [place], [address], 05/13/2021 10:37:10 05/12/2005/13/2021 URINA LYSIS , COMPL ETE comment manager [place] Not Available [facility] ([facility]) [address], [place], [address], 05/13/2021 10:37:10 05/12/20 21 05/13/2021 TSH+F REE T4 TSH 1.020 uIU/m L 0.450- 4.500 Not Available [facility] ([facility]) [address], [place], [address], 05/13/2021 10:37:09 05/12/2005/13/2021 TSH+F REE T4 T4,free(dire ct) 1.43 NG/dL 0.82-1 .77 Not Available [facility] ([facility]) [address], [place], [address], 05/13/2021 10:37:09 10/21/19 22 10/21/2021 HEMOG LOBIN A1C hemoglobin A1C 7.3 % 4.8-5. 6 above high normal Predi abete s: 5.7 - 6.4 Diabe bernie: >6.4 Glyce mabel contr ol for adult s with diabe bernie: <7.0 Not Available [facility] ([facility]) [address] [place], [address], 10/21/2021 08:24:39 10/21/19 22 10/21/2021 HEPAT IC FUNCT ION PANEL (7) protein, total 6.9 g/dL 6.0-8. 5 Not Available [facility] ([facility]) [address] [place], [address], 10/21/2021 08:24:39 10/21/19 22 10/21/2021 HEPAT IC FUNCT ION PANEL (7) albumin 4.2 g/dL 3.8-4. 8 Not Available [facility] ([facility]) [address] [place], [address], 10/21/2021 08:24:39 10/21/19 22 10/21/2021 HEPAT IC FUNCT ION PANEL (7) bilirubin, total 0.4 mg/dL 0.0-1. 2 Not Available [facility] ([facility]) [address] [place], [address], 10/21/2021 08:24:39 10/21/19 22 10/21/2021 HEPAT IC FUNCT ION PANEL (7) bilirubin, direct 0.13 mg/dL 0.00-0 .40 Not Available [facility] ([facility]) [address] [place], [address], 10/21/2021 08:24:39 10/21/19 22 10/21/2021 HEPAT IC FUNCT ION PANEL (7) alkaline phosphatase 53 IU/L 44-121 Not Available [facility] ([facility]) [address] [place], [address], 10/21/2021 08:24:39 10/21/19 22 10/21/2021 HEPAT IC FUNCT ION PANEL (7) AST (SGOT) 22 IU/L 0-40 Not Available [facility] ([facility]) [address] [place], [address], 10/21/2021 08:24:39 10/21/19 22 10/21/2021 HEPAT IC FUNCT ION PANEL (7) ALT (SGPT) 27 IU/L 0-44 Not Available [facility] ([facility]) [address] [place], [address], 10/21/2021 08:24:39 10/21/19 22 10/21/2021 LIPID PANEL W/ CHOL/ HDL RATIO cholesterol, total 166 mg/dL 100-19 9 Not Available [facility] ([facility]) [address] [place], [address], 10/21/2021 08:24:39 10/21/19 22 10/21/2021 LIPID PANEL W/ CHOL/ HDL RATIO triglyceride s 172 mg/dL 0-149 above high normal Not Available [facility] ([facility]) [address] [place], [address], 10/21/2021 08:24:39 10/21/19 22 10/21/2021 LIPID PANEL W/ CHOL/ HDL RATIO HDL cholesterol 43 mg/dL >39 Not Available [facility] ([facility]) [address] [place], [address], 10/21/2021 08:24:39 10/21/19 22 10/21/2021 LIPID PANEL W/ CHOL/ HDL RATIO VLDL cholesterol fanny 30 mg/dL 5-40 Not Available [facility] ([facility]) [address] [place], [address], 10/21/2021 08:24:39 10/21/19 22 10/21/2021 LIPID PANEL W/ CHOL/ HDL RATIO LDL chol calc ([facility]) 93 mg/dL 0-99 Not Available [facility] ([facility]) [address] [place], [address], 10/21/2021 08:24:39 10/21/19 22 10/21/2021 LIPID PANEL W/ CHOL/ HDL RATIO comment: manager [place] Not Available [facility] ([facility]) [address] [place], [address], 10/21/2021 08:24:39 10/21/19 22 10/21/2021 LIPID PANEL W/ CHOL/ HDL RATIO T. chol/HDL ratio 3.9 ratio 0.0-5. 0 T. Chol/ HDL Ratio Men Women 1/2 Avg.R isk 3.4 3.3 Avg.R isk 5.0 4.4 2X Avg.R isk 9.6 7.1 3X Avg.R isk 23.4 11.0 Not Available [facility] ([facility]) [address] [place], [address], 10/21/2021 08:24:39 10/21/19 22 10/21/2021 BASIC METAB OLIC PANEL (8) glucose 138 mg/dL 65-99 above high normal Not Available [facility] ([facility]) [address] [place], [address], 10/21/2021 08:24:38 10/21/19 22 10/21/2021 BASIC METAB OLIC PANEL (8) BUN 15 mg/dL 8-27 Not Available [facility] ([facility]) [address] [place], [address], 10/21/2021 08:24:38 10/21/19 22 10/21/2021 BASIC METAB OLIC PANEL (8) creatinine 0.71 mg/dL 0.76-1 .27 below low normal Not Available [facility] ([facility]) [address] [place], [address], 10/21/2021 08:24:38 10/21/19 22 10/21/2021 BASIC METAB OLIC PANEL (8) eGFR 101 mL/mi n/1.7 3 >59 Not Available [facility] ([facility]) [address] [place], [address], 10/21/2021 08:24:38 10/21/19 22 10/21/2021 BASIC METAB OLIC PANEL (8) BUN/creatini ne ratio 21 10-24 Not Available [facility] ([facility]) [address] [place], [address], 10/21/2021 08:24:38 10/21/19 22 10/21/2021 BASIC METAB OLIC PANEL (8) sodium 141 mmol/ L 134-14 4 Not Available [facility] ([facility]) [address] [place], [address], 10/21/2021 08:24:38 10/21/19 22 10/21/2021 BASIC METAB OLIC PANEL (8) potassium 3.9 mmol/ L 3.5-5. 2 Not Available [facility] ([facility]) [address] [place], [address], 10/21/2021 08:24:38 10/21/19 22 10/21/2021 BASIC METAB OLIC PANEL (8) chloride 103 mmol/ L 96-106 Not Available [facility] ([facility]) [address] [place], [address], 10/21/2021 08:24:38 10/21/19 22 10/21/2021 BASIC METAB OLIC PANEL (8) carbon dioxide, total 22 mmol/ L 20-29 Not Available [facility] ([facility]) [address] [place], [address], 10/21/2021 08:24:38 10/21/19 22 10/21/2021 BASIC METAB OLIC PANEL (8) calcium 9.3 mg/dL 8.6-10 .2 Not Available [facility] ([facility]) [address] [place], [address], 10/21/2021 08:24:38 11/19/19 22 11/17/2021 MRI, lumba r spine , w/o contr ast No observ ation record ed. [id number] [facility] [address], [place], [address], 09/15/2022 05:01:07 Result Notes None recorded. Problems Name Problem SNOMED Code Status Onset Date Resolution Date Notes Provider Name and Address Organization Details Recorded Time Benign essential hypertension 6442789 Active 2018 Not Available [facility] 3 04:49:51 Degeneration of lumbar intervertebra l disc 48189780 Active 2020 Not Available [facility] 3 04:49:51 Type 2 diabetes mellitus 58293503 Active 2018 Not Available [facility] 3 04:49:51 Uncontrolled type 2 diabetes mellitus 878835534 Active 2021 Not Available [facility] 3 04:49:51 Hyperlipidemi a 79299533 Active 2020 Not Available [facility] 3 04:49:51 Problem Notes None recorded. Procedures Surgical History Date Name Laterality Status Provider Name and Address Organization Details Recorded Time 2 other completed KRISHNA Chand [place] - [facility] [place] [employer] [facility] 11/29/2022 15:46:23 9 Colonoscopy completed Not Available [facility] 09/16/19 23 04:41:57 Hernia Repair completed Not Available [facility] 09/15/2022 04:41:57 [facility]end[facility] 09/15/2022 04:41:57 Imaging Results Imaging Date Name Status LastModified by Organiz ation Details LastModified Time 11/17/2021 MRI, lumbar spine, w/o contrast completed [id number] [facility] [address], [place], [address], 09/15/2022 05:01:07 Procedure Notes None recorded. Medical Equipment None Reported. Allergies Allergen ID Allergen Name Allergen Category Reaction Reaction Severity Criticality Documentation Date Start Date Code Code System Note Provider Name and Address Organization Details Recorded Time 7405 Substance with sulfonami de structure and antibacte rial mechanism of action (substanc e) medicatio n Not available Not available Not available 09/15/2022 28881 8003 SNOMED Not Available [facility] 3 05:00:37 Medications Name Sig Start Date Stop Date Status Note LastModified by Organization Details LastModified Time celecoxib 200 mg capsule 12/20 completed Not Available Not Available Not Available carvedilol 6.25 mg tablet TAKE 1 TABLET BY MOUTH TWICE DAILY active Not Available Not Available No t Available doxycycline hyclate 100 mg capsule Take 1 capsule twice a day by oral route with meals. active Not Available Not Available No t Available metformin 850 mg tablet TAKE 1 TABLET BY MOUTH EVERY DAY AT DINNER active Not Available Not Available No t Available clindamycin HCl 150 mg capsule 12/20 completed Not Available Not Available Not Available hydrocodone 10 mg-acetamin ophen 325 mg tablet 12/20 completed Not Available Not Available Not Available peg-electro lyte solution 420 gram oral solution 05/22 completed Not Available Not Available Not Available triamcinolo ne acetonide 0.1 % topical cream 11/13 completed Not Available Not Available Not Available quinapril 40 mg tablet TAKE 1 TABLET BY MOUTH TWICE DAILY 07/05 completed Not Available Not Available Not Available nortriptyli ne 25 mg capsule 12/20 completed Not Available Not Available Not Available bisacodyl 10 mg rectal suppository U UTD 05/23 completed Not Available Not Available Not Available indapamide 1.25 mg tablet TAKE 1 TABLET BY MOUTH TWICE DAILY active Not Available Not Available No t Available betamethaso ne dipropionat e 0.05 % topical cream APPLY TWICE DAILY NEEDED FOR RASH 05/15 completed Not Available Not Available Not Available betamethaso ne, augmented 0.05 % topical ointment APPLY ONCE DAILY TO FEET DIRECTED 05/15 completed Not Available Not Available Not Available felodipine ER 10 mg tablet,exte nded release 24 hr TAKE 1 TABLET BY MOUTH DAILY active Not Available Not Available No t Available hydroxyzine HCl 25 mg tablet TAKE 1 TABLET BY MOUTH EVERY NIGHT AT BEDTIME 05/15 completed Not Available Not Available Not Available lisinopril 40 mg tablet TAKE 1 TABLET BY MOUTH TWICE DAILY active Not Available Not Available No t Available rosuvastati n 20 mg tablet TAKE 1 TABLET BY MOUTH EVERY DAY active Not Available Not Available No t Available BD Ultra-Fine Mini Pen Needle 31 gauge x 3/16 USE WITH LANTUS EVERY DAY DIRECTED active Not Available Not Available No t Available Lyrica 150 mg capsule 12/20 completed Not Available Not Available Not Available pioglitazon e 15 mg-metformi n 850 mg tablet Take 1 tablet every day by oral route. 01/01 completed Not Available Not Available Not Available aspirin 2018 active Not Available Not Available Not Avai lable Lantus Solostar U-100 Insulin 100 unit/mL (3 mL) subcutaneou s pen ADMINISTE R 50 UNITS UNDER THE SKIN EVERY DAY IN THE EVENING active Not Available Not Available No t Available OneTouch Ultra Blue Test Strip USE THREE TIMES DAILY DIRECTED active Not Available Not Available No t Available OneTouch Ultra2 Meter USE TO TEST UTD active Not Available Not Available No t Available OneTouch Delica Plus Lancet 30 gauge TEST 3 TO 4 TIMES D active Not Available Not Available No t Available Mounjaro 2.5 mg/0.5 mL subcutaneou s pen injector ADMINISTE R 2.5 MG UNDER THE SKIN EVERY WEEK DIRECTED active Not Available Not Available No t Available Vitals Date Recorded Body mass index (BMI) Body height Oxygen saturation Oxygen saturation in Arterial blood by Pulse oximetry Heart rate Body temperature Body weight Systolic blood pressure Diastolic blood pressure Provider Name and Address Organization Details Last Updated DateTime 1 36.9 kg/m2 165.1 cm 97 % 97 % 68 /min 98 [degF] 233673. 51 g 120 mm[Hg] 80 mm[Hg] Not Available [facility] 3 04:47:18 Date Recorded Body mass index (BMI) Body height Oxygen saturation Oxygen saturation in Arterial blood by Pulse oximetry Heart rate Respiratory rate Body temperature Body weight Systolic blood pressure Diastolic blood pressure Provider Name and Address Organization Details Last Updated DateTime 2 36.6 kg/m2 165.1 cm 97 % 97 % 64 /min 16 /min 97.5 [degF] 30389.6 g 120 mm[Hg] 80 mm[Hg] Not Available [facility] 3 04:47:19 Date Recorded Body height Oxygen saturation Oxygen saturation in Arterial blood by Pulse oximetry Heart rate Body temperature Systolic blood pressure Diastolic blood pressure Systolic blood pressure Diastolic blood pressure Provider Name and Address Organization Details Last Updated DateTime 2 165.1 cm 97 % 97 % 87 /min 98 [degF] 122 mm[Hg] 82 mm[Hg] 130 mm[Hg] 70 mm[Hg] Not Available [facility] 3 04:47:19 Date Recorded Body height Body mass index (BMI) Body weight Body temperature Respiratory rate Oxygen saturation Oxygen saturation in Arterial blood by Pulse oximetry Heart rate Systolic blood pressure Diastolic blood pressure Provider Name and Address Organization Details Last Updated DateTime 3 165.1 cm 37.6 kg/m2 901188. 88 g 97.8 [degF] 16 /min 97 % 97 % 61 /min 118 mm[Hg] 72 mm[Hg] KRISHNA Chand [facility] [employer] [facility] 3 14:27:50 Date Recorded Body height Body temperature Body mass index (BMI) Body weight Respiratory rate Oxygen saturation Oxygen saturation in Arterial blood by Pulse oximetry Heart rate Systolic blood pressure Diastolic blood pressure Provider Name and Address Organization Details Last Updated DateTime 3 165.1 cm 96.7 [degF] 37.9 kg/m2 242031. 06 g 16 /min 96 % 96 % 75 /min 120 mm[Hg] 70 mm[Hg] KRISHNA Chand [facility] [employer] [facility] 3 14:27:14 Social History Question Answer Notes LastModified by Organizat ion Details LastModified Time Tobacco Smoking Status Never Smoker Not Available [facility] 09/15/2022 04:30:09 Do You Have An Advance Directive? No [id number] Information not available 09/15/2022 What Is Your Level Of Alcohol Consumption? None MIGRATION.[id number] 3589 Information not available 09/15/2022 Are You Blind Or Do You Have Difficulty Seeing? No MIGRATION.763919 4577 Information not available 09/15/2022 What Is Your Level Of Caffeine Consumption? Moderate MIGRATION.813747 0470 Information not available 09/15/2022 How Much Tobacco Do You Chew? None MIGRATION.014688 4290 Information not available 09/15/2022 In The 14 Days Before Symptom Onset, Have You Had Close Contact With A Laboratory-confir med COVID-19 While That Case Was Ill? No MIGRATION.[id number] 3907 Information not available 09/15/2022 In The 14 Days Before Symptom Onset, Have You Had Close Contact With A Person Who Is Under Investigation For COVID-19 While That Person Was Ill? No MIGRATION.846930 5851 Information not available 09/15/2022 Are You Deaf Or Do You Have Serious Difficulty Hearing? No MIGRATION.812354 4100 Information not available 09/15/2022 What Type Of Diet Are You Following? REGULAR MIGRATION.098989 3835 Information not available 09/15/2022 Which Illicit Or Recreational Drugs Have You Used? Medical Marijuana MIGRATION.196190 7286 Information not available 09/15/2022 Do You Or Have You Ever Used E-cigarettes Or Vape? Never Used Electronic Cigarettes MIGRATION.213178 6391 Information not available 09/15/2022 Have There Been Any Changes To Your Family Or Social Situation? No MIGRATION.139310 7796 Information not available 09/15/2022 Are There Any Guns Present In Your Home? Yes MIGRATION.323059 5620 Information not available 09/15/2022 Do You Use Insect Repellent Routinely? No MIGRATION.512861 4367 Information not available 09/15/2022 Do You Have A Medical Power Of Mitten Sewer? No MIGRATION.969542 6682 Information not available 09/15/2022 What Is Your Relationship Status? MIGRATION.742781 7123 Information not available 09/15/2022 Do You Use Your Seat Belt Or Car Seat Routinely? Yes MIGRATION.410934 6538 Information not available 09/15/2022 Do You Have Smoke And Carbon Monoxide Detectors In Your Home? Yes MIGRATION.767068 7776 Information not available 09/15/2022 At What Age Did You Start Smoking Tobacco? 1 MIGRATION.736153 5433 Information not available 09/15/2022 Do You Or Have You Ever Used Smokeless Tobacco? Never Used Smokeless Tobacco MIGRATION.835801 0745 Information not available 09/15/2022 How Much Tobacco Do You Smoke? No MIGRATION.037383 2644 Information not available 09/15/2022 Do You Use Any Illicit Or Recreational Drugs? Yes MIGRATION.476907 2613 Information not available 09/15/2022 Do You Use Sunscreen Routinely? Yes MIGRATION.363032 2942 Information not available 09/15/2022 Have You Recently Traveled Abroad? No MIGRATION.133655 1362 Information not available 09/15/2022 Do You Have Any Dietary Restrictions? No MIGRATION.067876 4243 Information not available 09/15/2022 Do You Or Have You Ever Used Any Other Forms Of Tobacco Or Nicotine? No MIGRATION.880764 9760 Information not available 09/15/2022 Sex: Unknown Functional Status Question Answer Note LastModified by Organizat ion Details LastModified Time Do you have difficulty walking or climbing stairs? No MIGRATION.[id number] 026 Information not available 09/15/2022 Do you have transportation difficulties? No MIGRATION.1421577 026 Information not available 09/15/2022 Do you have difficulty doing errands alone? No MIGRATION.6504226 026 Information not available 09/15/2022 Are you able to care for yourself? Yes MIGRATION.3391917 026 Information not available 09/15/2022 Do you have difficulty dressing or bathing? No MIGRATION.5048769 026 Information not available 09/15/2022 What is your exercise level? Occasional MIGRATION.[id number] 026 Information not available 09/15/2022 Mental Status Question Answer Note LastModified by Organizat ion Details LastModified Time Do you have difficulty concentrating, remembering or making decisions? No MIGRATION.[id number] 6 Information not available 09/15/2022 Family History Relationship Description Onset Age of this Age Resolved Age Notes LastModified by Organization Details LastModified Time Mother Congestive heart failure MIGRATION.[id number] Not available 09/15/2022 04:42:02 Brother Mesothelioma (malignant, clinical disorder) MIGRATION.[id number] Not available 09/15/2022 04:42:02 Medical History Condition Response KIDNEY STONES Y HIGH CHOLESTEROL / HYPERLIPIDEMIA Y BACK / NECK PROBLEMS Y DIABETES, TYPE Y HYPERTENSION Y Immunizations Vaccine Type Date Status Note Provider Morris montez and Address Organization Details Recorded Time SARS-COV-2 (COVID-19) vaccine, UNSPECIFIED 1 completed Not Available [facility] 09/15/2022 05:00:27 Influenza, high-dose, quadrivalent, PF 2 completed Not Available [facility] 09/15/2022 05:00:27 COVID-19, mRNA, LNP-S, PF, 100 mcg/0.5mL dose or 50 mcg/0.25mL dose 2 completed Not Available [facility] 09/15/2022 05:00:27 COVID-19, mRNA, LNP-S, PF, 100 mcg/0.5mL dose or 50 mcg/0.25mL dose 1 completed Not Available [facility] 09/15/2022 05:00:27 Pneumococcal conjugate PCV 13 1 completed Not Available [facility] 09/15/2022 05:00:27 Past Encounters Encounter ID Performer Location Encounter Start Date Encounter Closed Date Diagnosis/Indication Diagnosis SNOMED-CT Code Diagnosis ICD10 Code Diagnosis Note [id number] [facility] [place] [address] [place] [address] 11/07/2020 00:00:00 11/09/2020 10:18:33 [id number] [facility] [place] [address] [place] [address] 12/29/2020 00:00:00 01/14/2021 23:03:18 [id number] [facility] [place] [address] [place] [address] 05/15/2021 00:00:00 05/15/2021 16:21:02 [id number] [facility] [place] [address] [place] [address] 11/13/2021 00:00:00 11/13/2021 17:31:24 [id number] [facility] [place] [address] [place] [address] 2022 00:00:00 06/16/2022 18:11:51 [id number] DEANNA Alvarez [facility] [place] [address] [place] [address] 11/30/2022 14:20:02 11/30/2022 15:16:54 Uncontrolled type 2 diabetes mellitus 651084196 E11.65 due for a1c. on insulin and metformin. Hyperlipidemia 20223591 E78.5 stable on statins and due for labs now and latera Benign ess ential hypertension 1625673 I10 stable on medication s Degenerati on of lumbar intervertebral disc 88878920 M51.36 stable. no acute changes. Long-term drug therapy 581011393 Z79.899 labs due in Now and in 2022 before next apt Screening for malignant neoplasm of prostate 373923479 Z12.5 PSA due in [id number] DEANNA Alvarez [facility] [place] [address] [place] [address] 06/21/2023 14:18:17 06/21/2023 14:57:12 Uncontrolled type 2 diabetes mellitus 241317046 E11.65 8.9% a1c. diet has not been in line. Add mounjaro 2.5mg weekly therapy if insurance will authorize. Hyperlipidemia 50939194 E78.5 stable on rosuvastat in 20mg daily. Benign ess ential hypertension 7401002 I10 stable on lisinopril 40mg daily. Degenerati on of lumbar intervertebral disc 11291987 M51.36 stable. no acute changes. Long-term drug therapy 895605955 Z79.899 labs UTD. Long-term current use of insulin 544106451 Z79.4 on lantus solo star. adjust titration upward 2 units every few days until fasting is 120 or less Health Concerns Section Related Observation LastModified by Organization Detai ls LastModified Time None Recorded Concern Status LastModified by Organization Details LastModified Time None Recorded Advance Directives Directive N: Payers Encounter Date Sequence Insurance Name Policy Number Policy Myers Covered Member ID Myers Member ID Guarantor Name 11/30/2022 1 [facility] (MEDICARE REPLACEMENT/ ADVANTAGE - PPO) [id number] Michael Salinas [id number] Michael Salinas 06/21/2023 1 [facility] (MEDICARE REPLACEMENT/ ADVANTAGE - PPO) [id number] Michael Salinas [id number] Michael Salinas Notes Date Note Type Note Provider Name and Address Organization Details Recorded Time 021 text/ht ml Back Pain - DetailedReported bypatient.Location:pain is not radiating Quality:dull Severity:improving Duration:constant; still present Context:prior back problems; used medications for back pain; had evaluations by back specialist; has been in disability for LDDD since 2012 Aggravating Factors:movement/positioning;bendin g over;twisting;standing;activity Associated Symptoms:no fever; no weak limbs; no tingling; no numbness of the legs/feet; no incontinence; no shortness of breath reported prior tests or proceduressaw previous pain management; previous physical therapy ; injections previous medicationsVicodin / Hydrocodone ; NSAIDSHyperlipidemiaReported bypatient.Control:usually well controlled; improving; at goal Compliance:compliant; compliant with diet; exercises Complications:no coronary artery disease; no peripheral artery disease; no cardiovascular diseaseHypertensionReported bypatient.Onset/Timing:better Self Care:not under emotional stress Associated Symptoms:no shortness of breath; no fatigue; no palpitations; no decline in exercise capacity; no snoring Not Available [facility] [employer] [facility] 05/15/2021 16:21:02 022 text/ht ml DiabetesReported bypatient.Duration:chronic Control:usually well controlled; treated with insulin; hemoglobin A1C has been 7-8; LDL usually runs <100, goal is less than Compliance:compliant with medications; compliant with follow-up visits;noncompliant with diet;noncompliant with home glucose monitoring Self Care:not monitoring home glucose Context:taking aspirin daily Associated Symptoms:no weight gain; no weight loss; no dizziness; no sweats; no headaches; no confusion; no increased thirst; no increased appetite; no increased urination; no blurred vision; no numbness of feet; no calluses on feet; no fatigue; no blurred vision; no paresthesias Chronic Complications:hypertension: Yes; hyperlipidemia: YesHyperlipidemiaReported bypatient.Duration:chronic Control:usually well controlled Current Therapy:currently taking: (rosuvastatin 20mg); last cholesterol level: 166 date:; last LDL level: 93 date:; last triglyceride level: 172 date:; last HDL level: 43 date: Compliance:compliant;noncompliant with diet;does not exercise(stretches) Complications:no coronary artery disease; no peripheral artery disease; no cardiovascular disease Risk Factors:hypertensionHypertensionRep orted bypatient.Onset/Timing:better Alleviating Factors:medication Self Care:not under emotional stress Associated Symptoms:no shortness of breath; no palpitations; no decline in exercise capacity; no snoring;fatigue Not Available [employer] 11/13/2021 17:31:24 022 text/ht ml DiabetesReported bypatient.Duration:chronic Control:usually well controlled; treated with insulin; hemoglobin A1C has been 7-8; LDL usually runs <100, goal is less than Compliance:compliant with medications; compliant with follow-up visits;noncompliant with diet;noncompliant with home glucose monitoring Self Care:not monitoring home glucose Context:taking aspirin daily Associated Symptoms:no weight gain; no weight loss; no dizziness; no sweats; no headaches; no confusion; no increased thirst; no increased appetite; no increased urination; no blurred vision; no numbness of feet; no calluses on feet; no fatigue; no blurred vision; no paresthesias Chronic Complications:hypertension: Yes; hyperlipidemia: YesHyperlipidemiaReported bypatient.Duration:chronic Control:usually well controlled Current Therapy:currently taking: (rosuvastatin 20mg); last cholesterol level: 166 date:; last LDL level: 93 date:; last triglyceride level: 172 date:; last HDL level: 43 date: Compliance:compliant;noncompliant with diet;does not exercise(stretches) Complications:no coronary artery disease; no peripheral artery disease; no cardiovascular disease Risk Factors:hypertensionHypertensionRep orted bypatient.Onset/Timing:better Alleviating Factors:medication Self Care:not under emotional stress Associated Symptoms:no shortness of breath; no palpitations; no decline in exercise capacity; no snoring;fatigue Not Available [employer] 06/16/2022 18:11:51 023 text/ht ml DiabetesReported bypatient.Duration:chronic Control:usually well controlled; treated with diet and oral medications Compliance:compliant with medications; compliant with follow-up visits; compliant with home glucose monitoring;noncompliant with diet;has not had eye doctor visit in last year;has not had dietitian visit in last year;does not wear a medic alert bracelet or necklace;does not keep rapid-acting carbohydrate in car Self Care:not monitoring home glucose Context:normal range of home blood sugars (in the low 100s); seeing eye doctor regularly; checking feet regularly; taking aspirin daily Associated Symptoms:no weight gain; no weight loss; no dizziness; no sweats; no headaches; no confusion; no increased thirst; no increased urination; no blurred vision; no numbness of feet; no calluses on feet; no coronary artery disease; no kidney disease; no peripheral vascular disease; no diabetic retinopathy; no diabetic neuropathy;increased appetiteHyperlipidemiaReported bypatient.Duration:chronic Control:usually well controlled Current Therapy:currently taking: (rosuvastatin 20mg) Compliance:compliant;noncompliant with diet;does not exercise Complications:no coronary artery disease; no peripheral artery disease; no cardiovascular disease Risk Factors:diabetes;hypertension;smoki ng(week)HypertensionReported bypatient.Duration:has noted for years Onset/Timing:better Alleviating Factors:medication Associated Symptoms:no shortness of breath; no palpitations; no decline in exercise capacity; no snoring;fatigue DEANNA Alvarez [address], [address], [place] [facility] [employer] [employer] 12/15/2022 23:49:32 023 text/ht ml DiabetesReported bypatient.Duration:chronic Control:usually well controlled Compliance:compliant with medications; compliant with follow-up visits; compliant with diet; had eye doctor visit in last year;has not had dietitian visit in last year;does not wear a medic alert bracelet or necklace;does not keep rapid-acting carbohydrate in car Self Care:not monitoring home glucose Context:seeing eye doctor regularly; checking feet regularly; taking aspirin daily Associated Symptoms:no weight gain; no weight loss; no dizziness; no sweats; no headaches; no confusion; no increased thirst; no increased appetite; no increased urination; no blurred vision; no numbness of feet; no calluses on feet; no coronary artery disease; no kidney disease; no peripheral vascular disease; no diabetic retinopathy; no diabetic neuropathyHyperlipidemiaReported bypatient.Duration:chronic Control:usually well controlled Compliance:compliant;noncompliant with diet;does not exercise Complications:no coronary artery disease; no peripheral artery disease; no cardiovascular disease Risk Factors:diabetes;hypertensionHypert ensionReported bypatient.Duration:has noted for years Onset/Timing:better Alleviating Factors:medication Associated Symptoms:no shortness of breath; no fatigue; no palpitations; no decline in exercise capacity; no snoring DEANNA Alvarez [address] [facility], [facility] [address], [place], [address], [place] [facility] 07/13/2023 12:35:56
--- OUTSIDE RECORDS SUMMARY | 2024-10-24 00:35 | XMS_ITS | Data Portability ---
[facility] Organization [facility] Address [address] [place] [address] Care Team Providers Care Aoc [facility] Operations Staff Officer Name Role Phone ANTONIO DIXON Primary Care Provider Unavailab le Assessment Encounter Date Assessment Date Assessment LastModified by Organization Details LastModified Time 09/16/2023 09/16/2023 colonoscopy UTD, will request records from last office to confirm date. Not available 10/01/2023 14:53:23 01/27/2024 01/27/2024 colonoscopy UTD, will request records from last office to confirm date. Not available 01/27/2024 11:23:00 05/31/2024 05/31/2024 colonoscopy UTD, will request records from last office to confirm date. Not available 05/31/2024 11:30:18 Plan of Treatment Reminders Order Date Submit Date Provider Last Modified By Organization Details Last Modified Time Details Appointments ANY 15 2024 10:00A M DEANNA Alvarez Not available Not available Not available Lab PSA, total, serum or plasma 2023 025 [facility], [address], [place], [address], 05/31/2024 11:45:50 HbA1c (hemoglob in A1c), blood 2023 025 [facility], [address], [place], [address], 05/31/2024 11:45:50 microalbu min, urine 2023 025 [facility], [address], [place], [address], 05/31/2024 11:45:50 CBC w/ auto diff 2023 025 [facility], [address], [place], [address], 05/31/2024 11:45:50 BMP, serum or plasma 2023 025 [facility], [address], [place], [address], 05/31/2024 11:45:50 hepatic function panel, serum 2023 025 [facility], [address], [place], [address], 05/31/2024 11:45:50 TSH + free T4, serum 2023 025 [facility], [address], [place], [address], 05/31/2024 11:45:50 lipid panel, serum 2023 025 [facility], [address], [place], [address], 05/31/2024 11:45:50 HbA1c (hemoglob in A1c), blood 2023 024 [facility], [address], [place], [address], 05/17/2024 04:36:36 CBC w/ auto diff 2023 024 [facility], [address], [place], [address], 05/17/2024 04:36:37 BMP, serum or plasma 2023 024 [facility] [address], [place], [address], 05/17/2024 04:36:35 hepatic function panel, serum 2023 024 [facility] [address], [place], [address], 05/17/2024 04:36:34 TSH + free T4, serum 2023 024 [facility] [address], [place], [address], 05/17/2024 04:36:33 lipid panel, serum 2023 024 [facility] [address], [place], [address], 05/17/2024 04:36:32 HbA1c (hemoglob in A1c), blood 2023 024 [facility] [address], [place], [address], 10/15/2023 03:38:26 CBC w/ auto diff 2023 024 [facility], [address], [place], [address], 10/15/2023 03:38:26 BMP, serum or plasma 2023 024 [facility] [address] Nicole[address], [place], [address], 10/15/2023 03:38:25 hepatic function panel, serum 2023 024 [facility], [address], [place], [address], 10/15/2023 03:38:24 lipid panel, serum 2023 024 [facility], [address], [place], [address], 10/15/2023 03:38:24 Referral None recorded. Procedures None recorded. Surgeries None recorded. Imaging None recorded. Medication Orders Ozempic 1 mg/dose (4 mg/3 mL) subcutane ous pen injector 2023 024 ALEX [facility] #[id number], [address], [place], [place], [id number], 05/31/2024 11:45:57 Mounjaro 5 mg/0.5 mL subcutane ous pen injector 2023 024 [facility] #[id number], [address], [place], [place], [phone], 11/29/2023 19:15:24 Patient TargetsNo targets recorded. Patient Instructions Encounter Date Encounter Id Patient Instructions Last Modified By Organization Details Last Modified Time 01/27/2024 [id number] A healthy lifestyle: care instructions Not available 01/27/2024 11:29:10 05/31/2024 [id number] A healthy lifestyle: care instructions Not available 05/31/2024 11:45:50 06/21/2024 [id number] Medicare Wellnes s Preventive Checklist Not available 06/21/2024 16:21:47 Reason for Referral None Reported. Results Created Date Observation Date Name Description Value Unit Range Abnormal Flag Note LastModifiedBy Organization Detail LastModifiedTime 10/14/1910/15/2023 LIPID PANEL cholesterol, total 120 mg/dL 100-19 9 Not Available [facility]) [address] [facility], [place], [address], 10/15/2023 03:38:24 10/14/19 24 10/15/2023 LIPID PANEL triglyceride s 143 mg/dL 0-149 Not Available [facility] [address] [facility] [place], [address], 10/15/2023 03:38:24 10/14/19 24 10/15/2023 LIPID PANEL HDL cholesterol 37 mg/dL >39 below low normal Not Available [facility]) [address] [facility] [place], [address], 10/15/2023 03:38:24 10/14/19 24 10/15/2023 LIPID PANEL VLDL cholesterol fanny 25 mg/dL 5-40 Not Available [facility] [address] [facility] [place], [address], 10/15/2023 03:38:24 10/14/19 24 10/15/2023 LIPID PANEL LDL chol calc ([facility]) 58 mg/dL 0-99 Not Available [facility] [address] [facility] [place], [address], 10/15/2023 03:38:24 10/14/19 24 10/15/2023 HEPAT IC FUNCT ION PANEL (7) protein, total 6.8 g/dL 6.0-8. 5 Not Available [facility] ([facility]) [address] [place], [address], 10/15/2023 03:38:24 10/14/19 24 10/15/2023 HEPAT IC FUNCT ION PANEL (7) albumin 4.3 g/dL 3.9-4. 9 Not Available [facility] ([facility]) [address] [place], [address], 10/15/2023 03:38:24 10/14/19 24 10/15/2023 HEPAT IC FUNCT ION PANEL (7) bilirubin, total 0.3 mg/dL 0.0-1. 2 Not Available [facility] ([facility]) [address] [place], [address], 10/15/2023 03:38:24 10/14/19 24 10/15/2023 HEPAT IC FUNCT ION PANEL (7) bilirubin, direct 0.12 mg/dL 0.00-0 .40 Not Available [facility] ([facility]) [address] [place], [address], 10/15/2023 03:38:24 10/14/19 24 10/15/2023 HEPAT IC FUNCT ION PANEL (7) alkaline phosphatase 55 IU/L 44-121 Not Available [facility] [address] [place], [address], 10/15/2023 03:38:24 10/14/19 24 10/15/2023 HEPAT IC FUNCT ION PANEL (7) AST (SGOT) 24 IU/L 0-40 Not Available [facility] ([facility]) [address] [place], [address], 10/15/2023 03:38:24 10/14/19 24 10/15/2023 HEPAT IC FUNCT ION PANEL (7) ALT (SGPT) 29 IU/L 0-44 Not Available [facility] ([facility]) [address] [place], [address], 10/15/2023 03:38:24 10/14/19 24 10/15/2023 BMP7+ EGFR glucose 102 mg/dL 70-99 above high normal Not Available [facility] ([facility]) [address] [place], [address], 10/15/2023 03:38:25 10/14/19 24 10/15/2023 BMP7+ EGFR BUN 19 mg/dL 8-27 Not Available [facility] ([facility] [address] [place], [address], 10/15/2023 03:38:25 10/14/19 24 10/15/2023 BMP7+ EGFR creatinine 1.11 mg/dL 0.76-1 .27 Not Available [facility] ([facility] [address] [place], [address], 10/15/2023 03:38:25 10/14/19 24 10/15/2023 BMP7+ EGFR eGFR 72 mL/mi n/1.7 3 >59 Not Available [facility] ([facility] [address] [place], [address], 10/15/2023 03:38:25 10/14/19 24 10/15/2023 BMP7+ EGFR sodium 138 mmol/ L 134-14 4 Not Available [facility] ([facility] [address] [place], [address], 10/15/2023 03:38:25 10/14/19 24 10/15/2023 BMP7+ EGFR potassium 4.3 mmol/ L 3.5-5. 2 Not Available [facility] ([facility] [address] [place], [address], 10/15/2023 03:38:25 10/14/19 24 10/15/2023 BMP7+ EGFR chloride 101 mmol/ L 96-106 Not Available [facility] [address] [place], [address], 10/15/2023 03:38:25 10/14/19 24 10/15/2023 BMP7+ EGFR carbon dioxide, total 25 mmol/ L 20-29 Not Available [facility]) [address] [place], [address], 10/15/2023 03:38:25 10/14/19 24 10/15/2023 HEMOG LOBIN A1C hemoglobin A1C 6.5 % 4.8-5. 6 above high normal Predi abete s: 5.7 - 6.4 Diabe bernie: >6.4 Glyce mabel contr ol for adult s with diabe bernie: <7.0 Not Available [facility] ([facility]) [address] [place], [address], 10/15/2023 03:38:25 10/14/19 24 10/15/2023 CBC WITH DIFFE RENTI AL/PL ATELE T WBC 10.2 x10e3 /uL 3.4-10 .8 Not Available [facility] [address] [facility], [place], [address], 10/15/2023 03:38:26 10/14/19 24 10/15/2023 CBC WITH DIFFE RENTI AL/PL ATELE T RBC 5.12 x10e6 /uL 4.14-5 .80 Not Available [facility]) [address] [facility], [place], [address], 10/15/2023 03:38:26 10/14/19 24 10/15/2023 CBC WITH DIFFE RENTI AL/PL ATELE T hemoglobin 15.1 g/dL 13.0-1 7.7 Not Available [facility]) [address] [facility], [place], [address], 10/15/2023 03:38:26 10/14/19 24 10/15/2023 CBC WITH DIFFE RENTI AL/PL ATELE T hematocrit 46.0 % 37.5-5 1.0 Not Available [facility]) [address] [facility], [place], [address], 10/15/2023 03:38:26 10/14/19 24 10/15/2023 CBC WITH DIFFE RENTI AL/PL ATELE T MCV 90 fL 79-97 Not Available [facility]) [address] [place], [address], 10/15/2023 03:38:26 10/14/19 24 10/15/2023 CBC WITH DIFFE RENTI AL/PL ATELE T MCH 29.5 pg 26.6-3 3.0 Not Available [facility]) [address] [place], [address], 10/15/2023 03:38:26 10/14/19 24 10/15/2023 CBC WITH DIFFE RENTI AL/PL ATELE T MCHC 32.8 g/dL 31.5-3 5.7 Not Available [facility]) [address] [facility], [place], [address], 10/15/2023 03:38:26 10/14/19 24 10/15/2023 CBC WITH DIFFE RENTI AL/PL ATELE T RDW 12.8 % 11.6-1 5.4 Not Available [facility]) [address] [facility], [place], [address], 10/15/2023 03:38:26 10/14/19 24 10/15/2023 CBC WITH DIFFE RENTI AL/PL ATELE T platelets 240 x10e3 /uL 150-45 0 Not Available [facility]) [address] [facility], [place], [address], 10/15/2023 03:38:26 10/14/19 24 10/15/2023 CBC WITH DIFFE RENTI AL/PL ATELE T neutrophils 55 % notest ab. Not Available [facility]) [address] [facility], [place], [address], 10/15/2023 03:38:26 10/14/19 24 10/15/2023 CBC WITH DIFFE RENTI AL/PL ATELE T lymphs 25 % notest ab. Not Available [facility]) [address] [facility], [place], [address], 10/15/2023 03:38:26 10/14/19 24 10/15/2023 CBC WITH DIFFE RENTI AL/PL ATELE T monocytes 7 % notest ab. Not Available [facility]) [address] [facility], [place], [address], 10/15/2023 03:38:26 10/14/19 24 10/15/2023 CBC WITH DIFFE RENTI AL/PL ATELE T eos 12 % notest ab. Not Available [facility] ([facility]) [address] [place], [address], 10/15/2023 03:38:26 10/14/19 24 10/15/2023 CBC WITH DIFFE RENTI AL/PL ATELE T basos 1 % notest ab. Not Available [facility] ([facility]) [address] [place], [address], 10/15/2023 03:38:26 10/14/19 24 10/15/2023 CBC WITH DIFFE RENTI AL/PL ATELE T neutrophils (absolute) 5.7 x10e3 /uL 1.4-7. 0 Not Available [facility] ([facility]) [address] [place], [address], 10/15/2023 03:38:26 10/14/19 24 10/15/2023 CBC WITH DIFFE RENTI AL/PL ATELE T lymphs (absolute) 2.6 x10e3 /uL 0.7-3. 1 Not Available [facility] ([facility] [address] [place], [address], 10/15/2023 03:38:26 10/14/19 24 10/15/2023 CBC WITH DIFFE RENTI AL/PL ATELE T monocytes(ab solute) 0.7 x10e3 /uL 0.1-0. 9 Not Available [facility] ([facility]) [address] [place], [address], 10/15/2023 03:38:26 10/14/19 24 10/15/2023 CBC WITH DIFFE RENTI AL/PL ATELE T eos (absolute) 1.2 x10e3 /uL 0.0-0. 4 above high normal Not Available [facility] ([facility]) [address] [place], [address], 10/15/2023 03:38:26 10/14/19 24 10/15/2023 CBC WITH DIFFE RENTI AL/PL ATELE T baso (absolute) 0.1 x10e3 /uL 0.0-0. 2 Not Available [facility]) [address] [facility], [place], [address], 10/15/2023 03:38:26 10/14/19 24 10/15/2023 CBC WITH DIFFE RENTI AL/PL ATELE T immature granulocytes 0 % notest ab. Not Available [facility]) [address] [facility], [place], [address], 10/15/2023 03:38:26 10/14/19 24 10/15/2023 CBC WITH DIFFE RENTI AL/PL ATELE T immature grans (abs) 0.0 x10e3 /uL 0.0-0. 1 Not Available [facility]) [address] [facility], [place], [address], 10/15/2023 03:38:26 05/16/20 24 05/17/2024 LIPID PANEL W/ CHOL/ HDL RATIO cholesterol, total 131 mg/dL 100-19 9 Not Available [facility]) [address] [facility], [place], [address], 05/17/2024 04:36:32 05/16/20 24 05/17/2024 LIPID PANEL W/ CHOL/ HDL RATIO triglyceride s 112 mg/dL 0-149 Not Available [facility] [address] [facility], [place], [address], 05/17/2024 04:36:32 05/16/20 24 05/17/2024 LIPID PANEL W/ CHOL/ HDL RATIO HDL cholesterol 42 mg/dL >39 Not Available [facility] [address] [facility], [place], [address], 05/17/2024 04:36:32 05/16/20 24 05/17/2024 LIPID PANEL W/ CHOL/ HDL RATIO VLDL cholesterol fanny 20 mg/dL 5-40 Not Available [facility] [address] [place], [address], 05/17/2024 04:36:32 05/16/20 24 05/17/2024 LIPID PANEL W/ CHOL/ HDL RATIO LDL chol calc ([facility]) 69 mg/dL 0-99 Not Available [facility] [address] [facility], [place], [address], 05/17/2024 04:36:32 05/16/20 24 05/17/2024 LIPID PANEL W/ CHOL/ HDL RATIO T. chol/HDL ratio 3.1 ratio 0.0-5. 0 T. Chol/ HDL Ratio Men Women 1/2 Avg.R isk 3.4 3.3 Avg.R isk 5.0 4.4 2X Avg.R isk 9.6 7.1 3X Avg.R isk 23.4 11.0 Not Available [facility] ([facility]) [address] [facility], [place], [address], 05/17/2024 04:36:32 05/16/20 24 05/17/2024 TSH+F REE T4 TSH 1.320 uIU/m L 0.450- 4.500 Not Available [facility] ([facility]) [address] [facility], [place], [address], 05/17/2024 04:36:33 05/16/20 24 05/17/2024 TSH+F REE T4 T4,free(dire ct) 1.25 NG/dL 0.82-1 .77 Not Available [facility] ([facility]) [address] [place], [address], 05/17/2024 04:36:33 05/16/20 24 05/17/2024 HEPAT IC FUNCT ION PANEL (7) protein, total 7.1 g/dL 6.0-8. 5 Not Available [facility]) [address] [facility] [place], [address], 05/17/2024 04:36:34 05/16/20 24 05/17/2024 HEPAT IC FUNCT ION PANEL (7) albumin 4.4 g/dL 3.9-4. 9 Not Available [facility]) [address] [facility] [place], [address], 05/17/2024 04:36:34 05/16/20 24 05/17/2024 HEPAT IC FUNCT ION PANEL (7) bilirubin, total 0.4 mg/dL 0.0-1. 2 Not Available [facility] ([facility]) [address] [facility] [place], [address], 05/17/2024 04:36:34 05/16/20 24 05/17/2024 HEPAT IC FUNCT ION PANEL (7) bilirubin, direct 0.15 mg/dL 0.00-0 .40 Not Available [facility] ([facility]) [address] [facility] [place], [address], 05/17/2024 04:36:34 05/16/20 24 05/17/2024 HEPAT IC FUNCT ION PANEL (7) alkaline phosphatase 58 IU/L 44-121 Not Available [facility] [address] [facility] [place], [address], 05/17/2024 04:36:34 05/16/20 24 05/17/2024 HEPAT IC FUNCT ION PANEL (7) AST (SGOT) 24 IU/L 0-40 Not Available [facility]) [address] [place], [address], 05/17/2024 04:36:34 05/16/20 24 05/17/2024 HEPAT IC FUNCT ION PANEL (7) ALT (SGPT) 31 IU/L 0-44 Not Available [facility] ([facility]) [address] [place], [address], 05/17/2024 04:36:34 05/16/2005/17/2024 BMP7+ EGFR glucose 116 mg/dL 70-99 above high normal Not Available [facility]) [address] [facility], [place], [address], 05/17/2024 04:36:35 05/16/20 24 05/17/2024 BMP7+ EGFR BUN 22 mg/dL 8-27 Not Available [facility]) [address] [facility], [place], [address], 05/17/2024 04:36:35 05/16/2005/17/2024 BMP7+ EGFR creatinine 1.04 mg/dL 0.76-1 .27 Not Available [facility]) [address] [facility], [place], [address], 05/17/2024 04:36:35 05/16/20 24 05/17/2024 BMP7+ EGFR eGFR 78 mL/mi n/1.7 3 >59 Not Available [facility]) [address] [facility], [place], [address], 05/17/2024 04:36:35 05/16/20 24 05/17/2024 BMP7+ EGFR sodium 138 mmol/ L 134-14 4 Not Available [facility]) [address] [facility], [place], [address], 05/17/2024 04:36:35 05/16/20 24 05/17/2024 BMP7+ EGFR potassium 4.5 mmol/ L 3.5-5. 2 Not Available [facility]) [address] [facility], [place], [address], 05/17/2024 04:36:35 05/16/20 24 05/17/2024 BMP7+ EGFR chloride 99 mmol/ L 96-106 Not Available [facility]) [address] [facility], [place], [address], 05/17/2024 04:36:35 05/16/2005/17/2024 BMP7+ EGFR carbon dioxide, total 25 mmol/ L Not Available [facility]) [address] [facility], [place], [address], 05/17/2024 04:36:35 05/16/2005/17/2024 HEMOG LOBIN A1C hemoglobin A1C 6.4 % 4.8-5. 6 above high normal Predi abete s: 5.7 - 6.4 Diabe bernie: >6.4 Glyce mabel contr ol for adult s with diabe bernie: <7.0 Not Available [facility]) [address] [facility], [place], [address], 05/17/2024 04:36:36 05/16/2005/16/2024 CBC WITH DIFFE RENTI AL/PL ATELE T WBC 8.4 x10e3 /uL 3.4-10 .8 Not Available [facility]) [address] [facility], [place], [address], 05/17/2024 04:36:37 05/16/20 24 05/16/2024 CBC WITH DIFFE RENTI AL/PL ATELE T RBC 5.15 x10e6 /uL 4.14-5 .80 Not Available [facility]) [address] [facility], [place], [address], 05/17/2024 04:36:37 05/16/20 24 05/16/2024 CBC WITH DIFFE RENTI AL/PL ATELE T hemoglobin 15.3 g/dL 13.0-1 7.7 Not Available [facility] ([facility]) [address] [place], [address], 05/17/2024 04:36:37 05/16/20 24 05/16/2024 CBC WITH DIFFE RENTI AL/PL ATELE T hematocrit 46.7 % 37.5-5 1.0 Not Available [facility]) [address] [facility], [place], [address], 05/17/2024 04:36:37 05/16/20 24 05/16/2024 CBC WITH DIFFE RENTI AL/PL ATELE T MCV 91 fL 79-97 Not Available [facility]) [address] [facility], [place], [address], 05/17/2024 04:36:37 05/16/2005/16/2024 CBC WITH DIFFE RENTI AL/PL ATELE T MCH 29.7 pg 26.6-3 3.0 Not Available [facility] ([facility]) [address] [facility], [place], [address], 05/17/2024 04:36:37 05/16/2005/16/2024 CBC WITH DIFFE RENTI AL/PL ATELE T MCHC 32.8 g/dL 31.5-3 5.7 Not Available [facility] ([facility]) [address] [place], [address], 05/17/2024 04:36:37 05/16/2005/16/2024 CBC WITH DIFFE RENTI AL/PL ATELE T RDW 12.7 % 11.6-1 5.4 Not Available [facility] ([facility]) [address] [place], [address], 05/17/2024 04:36:37 05/16/2005/16/2024 CBC WITH DIFFE RENTI AL/PL ATELE T platelets 239 x10e3 /uL 150-45 0 Not Available [facility] ([facility]) [address] [place], [address], 05/17/2024 04:36:37 05/16/20 24 05/16/2024 CBC WITH DIFFE RENTI AL/PL ATELE T neutrophils 58 % notest ab. Not Available [facility]) [address] [facility] [place], [address], 05/17/2024 04:36:37 05/16/20 24 05/16/2024 CBC WITH DIFFE RENTI AL/PL ATELE T lymphs 23 % notest ab. Not Available [facility]) [address] [facility], [place], [address], 05/17/2024 04:36:37 05/16/20 24 05/16/2024 CBC WITH DIFFE RENTI AL/PL ATELE T monocytes 7 % notest ab. Not Available [facility]) [address] [facility], [place], [address], 05/17/2024 04:36:37 05/16/2005/16/2024 CBC WITH DIFFE RENTI AL/PL ATELE T eos 11 % notest ab. Not Available [facility]) [address] [facility], [place], [address], 05/17/2024 04:36:37 05/16/2005/16/2024 CBC WITH DIFFE RENTI AL/PL ATELE T basos 1 % notest ab. Not Available [facility] [address] [facility], [place], [address], 05/17/2024 04:36:37 05/16/20 24 05/16/2024 CBC WITH DIFFE RENTI AL/PL ATELE T neutrophils (absolute) 4.8 x10e3 /uL 1.4-7. 0 Not Available [facility]) [address] [facility], [place], [address], 05/17/2024 04:36:37 05/16/20 24 05/16/2024 CBC WITH DIFFE RENTI AL/PL ATELE T lymphs (absolute) 2.0 x10e3 /uL 0.7-3. 1 Not Available [facility]) [address] [facility], [place], [address], 05/17/2024 04:36:37 05/16/20 24 05/16/2024 CBC WITH DIFFE RENTI AL/PL ATELE T monocytes(ab solute) 0.6 x10e3 /uL 0.1-0. 9 Not Available [facility] ([facility] [address] [facility], [place], [address], 05/17/2024 04:36:37 05/16/20 24 05/16/2024 CBC WITH DIFFE RENTI AL/PL ATELE T eos (absolute) 0.9 x10e3 /uL 0.0-0. 4 above high normal Not Available [facility] [address] [facility], [place], [address], 05/17/2024 04:36:37 05/16/20 24 05/16/2024 CBC WITH DIFFE RENTI AL/PL ATELE T baso (absolute) 0.0 x10e3 /uL 0.0-0. 2 Not Available [facility] [address] [facility], [place], [address], 05/17/2024 04:36:37 05/16/20 24 05/16/2024 CBC WITH DIFFE RENTI AL/PL ATELE T immature granulocytes 0 % notest ab. Not Available [facility] [address] [facility], [place], [address], 05/17/2024 04:36:37 05/16/20 24 05/16/2024 CBC WITH DIFFE RENTI AL/PL ATELE T immature grans (abs) 0.0 x10e3 /uL 0.0-0. 1 Not Available [facility] [address] [facility], [place], [address], 05/17/2024 04:36:37 Result Notes None recorded. Problems Name Problem SNOMED Code Status Onset Date Resolution Date Notes Provider Name and Address Organization Details Recorded Time Body mass index 30+ - obesity 731943818 Active 2023 DEANNA Alvarez Attn: Rahulkate bonilla,[address] [facility], [place], [address], [place] [facility] 4 11:11:18 Obesity 161772026 Active 2023 DEANNA Alvarez Attn: Konstantin bonilla,[address] [facility], [place], [address], [place] [facility] 4 11:11:19 Long-term drug therapy Active 2023 DEANNA Alvarez Attn: Konstantin bonilla,[address] [facility], [place], [address], [place] [facility] 4 11:23:00 Long-term current use of insulin 024303188 Active 2023 DEANNA Alvarez Attn: Konstantin bonilla,[address] [facility], [place], [address], [place] [facility] 4 11:23:06 Degeneration of lumbar intervertebral disc 79408842 Active 2023 DEANNA Alvarez Attn: Konstantin bonilla,[address] [facility], [place], [address], [place] [facility] 4 11:23:08 Age related macular degeneration 448520208 Active 2023 DEANNA Alvarez Attn: Konstantin bonilla,[address] [facility], [place], [address], [place] [facility] 4 11:23:10 Chronic low back pain 599548128 Active 2023 DEANNA Alvarez Attn: Konstantin bonilla,[address] [facility], [place], [address], [place] [facility] 4 11:23:11 Hyperlipidemia 06232281 Active 2023 DEANNA Alvarez Attn: Konstantin bonilla,[address] [facility] [place] [place], [address], [facility] 4 11:23:13 Benign essential hypertension 6607121 Active 2023 DEANNA Alvarez Attn: Konstantin bonilla,[address] [facility], [place], [address], [facility] 4 11:23:14 Uncontrolled type 2 diabetes mellitus 187039082 Active 2023 DEANNA Alvarez Attn: Konstantin bonilla,[address] [facility], [place], [address], [facility] 4 11:23:16 Problem Notes None recorded. Procedures Surgical History Date Name Laterality Status Provider Name and Address Organization Details Recorded Time Appendectomy completed Silverio De Jesus MA [facility] 09/16/2023 15:47:30 Hernia Repair completed Silverio De Jesus MA [facility] 09/16/2023 15:47:36 Imaging Results None recorded. Procedure Notes None recorded. Medical Equipment None Reported. Allergies Allergen ID Allergen Name Allergen Category Reaction Reaction Severity Criticality Documentation Date Start Date Code Code System Note Provider Name and Address Organization Details Recorded Time 017299 Substance with sulfonami de structure and antibacte rial mechanism of action (substanc e) medicatio n hives nausea Not available Not available low 09/16/2023 66436 [id number] SNOMED Not Available Not Available Not Available Medications Name Sig Start Date Stop Date Status Note LastModified by Organization Details LastModified Time BD Ultra Fine Pen [place] Mini 5 mm X 31 gauge use daily with lantus 2023 active Not Available Not Available Not Avai lable carvedilol 6.25 mg tablet TAKE 1 TABLET BY MOUTH TWICE DAILY active Not Available Not Available No t Available metformin 850 mg tablet Take 1 tablet every day by oral route for 90 days. active Not Available Not Available No t Available indapamide 1.25 mg tablet TAKE 1 TABLET BY MOUTH TWICE DAILY active Not Available Not Available No t Available felodipine ER 10 mg tablet,exte nded release 24 hr TAKE 1 TABLET BY MOUTH DAILY active Not Available Not Available No t Available lisinopril 40 mg tablet one tab po bid 2023 active Not Available Not Available Not Avai lable rosuvastati n 20 mg tablet Take 1 tablet every day by oral route for 90 days. active Not Available Not Available No t Available BD Ultra-Fine Mini Pen Needle 31 gauge x 3/16 USE DAILY active Not Available Not Available No t Available Fish Oil active Not Available Not Avai lable Not Available Lantus Solostar U-100 Insulin 100 unit/mL (3 mL) subcutaneou s pen ADMINISTE R 50 UNITS UNDER THE SKIN EVERY EVENING active Not Available Not Available No t Available Osteo Bi-Flex one daily active Not Available Not Available No t Available ICaps AREDS2 bid active Not Available Not Available Not Available Ozempic 1 mg/dose (4 mg/3 mL) subcutaneou s pen injector Inject 1 mg every week by subcutane ous route. active Not Available Not Available No t Available Mounjaro 5 mg/0.5 mL subcutaneou s pen injector ADMINISTE R 5 MG UNDER THE SKIN EVERY WEEK DIRECTED 11/28 completed Not Available Not Available Not Available Mounjaro 2.5 mg/0.5 mL subcutaneou s pen injector ADMINISTE R 2.5 MG UNDER THE SKIN EVERY WEEK DIRECTED 09/15 completed Not Available Not Available Not Available Ozempic 0.25 mg or 0.5 mg (2 mg/3 mL) subcutaneou s pen injector INJECT 0.5MG UNDER THE SKIN ONCE WEEKLY 05/31 completed Not Available Not Available Not Available Vitals Date Recorded Body height Body mass index (BMI) Body weight Heart rate Respiratory rate Oxygen saturation Oxygen saturation in Arterial blood by Pulse oximetry Systolic blood pressure Diastolic blood pressure Provider Name and Address Organization Details Last Updated DateTime 4 163.2 cm 38.1 kg/m2 218686. 69 g 65 /min 18 /min 99 % 99 % 114 mm[Hg] 65 mm[Hg] Silverio De Jesus [place] [facility] 4 09:34:38 Date Recorded Body height Body mass index (BMI) Body weight Respiratory rate Oxygen saturation Oxygen saturation in Arterial blood by Pulse oximetry Heart rate Systolic blood pressure Diastolic blood pressure Provider Name and Address Organization Details Last Updated DateTime 4 163.2 cm 36.1 kg/m2 12134.8 7 g 18 /min 99 % 99 % 67 /min 110 mm[Hg] 78 mm[Hg] Silverio De Jesus MA [facility] 4 11:03:06 Date Recorded Systolic blood pressure Diastolic blood pressure Provider Name and Address Organization Details Last Updated DateTime 01/27/2024 118 mm[Hg] 80 mm[Hg] DEANNA Alvarez Attn: Accounting,[address] [place], [address], [facility] 01/27/2024 11:22:20 Date Recorded Body height Body mass index (BMI) Body weight Respiratory rate Oxygen saturation Oxygen saturation in Arterial blood by Pulse oximetry Heart rate Systolic blood pressure Diastolic blood pressure Provider Name and Address Organization Details Last Updated DateTime 4 163.2 cm 36.3 kg/m2 06639.1 7 g 18 /min 98 % 98 % 66 /min 116 mm[Hg] 82 mm[Hg] Silverio De Jesus MA [facility] 11:26:28 Date Recorded Body height Body mass index (BMI) Body weight Respiratory rate Systolic blood pressure Diastolic blood pressure Provider Name and Address Organization Details Last Updated DateTime 4 163.2 cm 35.3 kg/m2 71760.6 2 g 18 /min 118 mm[Hg] 82 mm[Hg] Silverio De Jesus MA [facility] 15:31:31 Date Recorded Oxygen saturation Oxygen saturation in Arterial blood by Pulse oximetry Heart rate Pain severity - 0-10 verbal numeric rating [Score] - Reported Provider Name and Address Organization Details Last Updated DateTime 06/21/2024 100 % 100 % 75 /min 4 Nadine Irais [facility] 06/21/2024 15:34:11 Social History Question Answer Notes LastModified by Organizat ion Details LastModified Time Tobacco Smoking Status Never Smoker Silverio De Jesus MA null, [facility] 09/16/2023 09:32:48 Do You Have An Advance Directive? No Information not available 05/31/2024 What Is Your Level Of Alcohol Consumption? None Information not available 09/16/2023 Are You Blind Or Do You Have Difficulty Seeing? No Driving Glasses Information not available 06/21/2024 What Is Your Level Of Caffeine Consumption? Moderate 2 Cups Of Coffee Information not available 06/21/2024 In The 14 Days Before Symptom Onset, Have You Had Close Contact With A Laboratory-confir med COVID-19 While That Case Was Ill? No Information not available 09/16/2023 In The 14 Days Before Symptom Onset, Have You Had Close Contact With A Person Who Is Under Investigation For COVID-19 While That Person Was Ill? No Information not available 09/16/2023 Have You Been To An Area Known To Be High Risk For COVID-19? No Information not available 09/16/2023 Are You Currently Employed? No Information not available 05/31/2024 Are You Deaf Or Do You Have Serious Difficulty Hearing? No Information not available 09/16/2023 What Type Of Diet Are You Following? REGULAR Information not available 09/16/2023 What Is The Highest Grade Or Level Of School You Have Completed Or The Highest Degree You Have Received? [id number] Information not available 06/21/2024 Are There Any Guns Present In Your Home? Yes Information not available 06/21/2024 In The Past 7 Days, How Many Days Did You Exercise? 0 Information not available 06/21/2024 In The Past 7 Days, How Much Pain Have You [place]? A Lot Information not available 06/21/2024 In General, Would You Say You Health Is: Good Information not available 06/21/2024 How Would You Describe The Condition Of Your Mouth And Teeth- Including False Teeth Or Dentures? Good Information not available 06/21/2024 Each Night, How Many Hours Of Sleep Do You Get? 7 Information no t available 06/21/2024 Has Anyone Ever Told You That You Snore? Yes Information not available 06/21/2024 In The Past 7 Days, How Often Have You [place] Sleepy In The Daytime? Sometimes Information not available 06/21/2024 # Alcohol Drinks Per Week 0 Information not available 06/21/2024 What Was The Date Of Your Most Recent Tobacco Screening? 06/21/2024 Information not available 06/21/2024 What Is Your Relationship Status? Information not available 06/21/2024 Do You Use Your Seat Belt Or Car Seat Routinely? Yes Information not available 09/16/2023 Do You Have Smoke And Carbon Monoxide Detectors In Your Home? Yes Information not available 09/16/2023 Do You Feel Stressed (tense, Restless, Nervous, Or Anxious, Or Unable To Sleep At Night)? [id number] Information not available 09/16/2023 Do You Use Any Illicit Or Recreational Drugs? Yes Medical Cannbias Information not available 09/16/2023 Do You Use Sunscreen Routinely? No Information not available 09/16/2023 Has Tobacco Cessation Counseling Been Provided? No Information not available 06/21/2024 On What Date Was Tobacco Cessation Counseling Provided? 05/31/2024 Information not available 05/31/2024 Do You Or Have You Ever Used Any Other Forms Of Tobacco Or Nicotine? No Information not available 09/16/2023 Sex: Male Functional Status Question Answer Note LastModified by Organization D etails LastModified Time Are you able to care for yourself? Yes Information n ot available 09/16/2023 What is your exercise level? None Information not available 06/21/2024 Mental Status None recorded. Family History Relationship Description Onset Age of this Age Resolved Age Notes LastModified by Organization Details LastModified Time Mother Diabetes mellitus [email or web address] Not available 2023 15:47:47 Mother Heart disease [email or web address] Not available 2023 15:47:55 Mother Hypertensive disorder [email or web address] Not available 2023 15:48:05 Medical History Condition Response Coronary Artery Disease N Other N Atrial Fibrillation N High Blood Pressure Y Depression N COPD N Blood Clots N Anxiety Disorder N Muscle, Joint, or Bone Problems N Acid Reflux (GERD) N Cancer N Stroke N High Cholesterol Y Liver Disease N Headaches N Kidney or Bladder Problems Y Thyroid Problems N GI Problems N Have you had a mammogram in the last yea r? N Skin Problems N Anemia N Heart Attack (NM) N Diabetes Y Seizures/Epilepsy N Have you had a colonoscopy in the last 1 0 years? Y Asthma N Allergies N Have you had a PSA blood test in the las t year? N Hepatitis N Heart Failure N Osteoporosis N Immunizations Vaccine Type Date Status Note Provider Nam e and Address Organization Details Recorded Time Influenza, adjuvanted, quadrivalent, PF 2 completed Silverio De [place], [place] [facility] 05/30/2024 11:50:06 COVID-19, mRNA, LNP-S, PF, 30 mcg/0.3 mL dose 1 completed Silverio De [place] [facility] 05/30/2024 11:50:07 COVID-19 vaccine, vector-nr, rS-Ad26, PF, 0.5 mL 1 completed Silverio [place] [facility] 05/30/2024 11:50:07 COVID-19, mRNA, LNP-S, bivalent, PF, 30 mcg/0.3 mL dose 2 completed Silverio De [place] [facility] 05/30/2024 11:50:07 Pneumococcal conjugate PCV 13 1 completed [place] Bra[place] [facility] 06/21/2024 15:36:50 Influenza, high-dose, trivalent, PF 4 completed DEANNA Alvarez Attn: Accounting,[address] [place], [address], [place] [facility] 06/21/2024 16:29:43 Pneumococcal conjugate PCV20, polysaccharide ZVT227 conjugate, adjuvant, PF 4 completed DEANNA Alvarez Attn: Accounting,[address] [place], [address], [place] [facility] 06/21/2024 16:29:43 Past Encounters Encounter ID Performer Location Encounter Start Date Encounter Closed Date Diagnosis/Indication Diagnosis SNOMED-CT Code Diagnosis ICD10 Code Diagnosis Note [id number] DEANNA Alvarez [facility] [address] [place] [address] 09/16/2023 09:20:48 10/03/2023 15:56:08 Uncontrolled type 2 diabetes mellitus 736476124 E11.65 last a1c 8.9%. mounjaro was added at last appt. now due for f/u labs. also on metformin 850mg with dinner and lantus 50 units daily. Increase to mounjaro 5mg weekly dosing with plans to escalate dose as tolerated. Benign ess ential hypertension 0880694 I10 stable on coreg 6.25mg bid and felodipine ER 10mg daily and indapamide 2.5mg total daily. Hyperlipidemia 34931836 E78.5 on crestor 20mg daily. due for fasting lipids. Degenerati on of lumbar intervertebral disc 43564963 M51.36 pt uses medicinal marijuana for pain management purposes. Chronic low back pain 27 7319528 M54.50 as above. Long-term drug therapy 487789305 Z79.899 routine cbc, bmp and lft due. Long-term current use of insulin 601896690 Z79.4 Age relate d macular degeneration 053770598 H35.30 noted with updated eye exam. [id number] DEANNA Alvarez [facility] [place] [address] [place] [address] 01/27/2024 10:45:50 01/27/2024 11:47:41 Body mass index 30+ - obesity 428069025 Z68.36 BMI is 36.1 Obesity 329434501 E66.8 discussed healthy diet, exercise, controllin g carbohydra bernie and added sugars in the diet Uncontroll ed type 2 diabetes mellitus 341759580 E11.65 last a1c 6.5% . mounjaro was added at last appt. now due for f/u labs. also on metformin 850mg with dinner and lantus 50 units daily. Long-term current use of insulin 650868901 Z79.4 Benign ess ential hypertension 5744764 I10 stable on coreg 6.25mg bid and felodipine ER 10mg daily and indapamide 2.5mg total daily. Hyperlipidemia 22344687 E78.5 on crestor 20mg daily. due for fasting lipids. Degenerati on of lumbar intervertebral disc 54757076 M51.36 pt uses medicinal marijuana for pain management purposes. Chronic low back pain 27 9026739 M54.50 as above. Age relate d macular degeneration 866877296 H35.30 noted with updated eye exam. Long-term drug therapy 096894567 Z79.899 routine cbc, bmp and lft due. [id number] DEANNA Alvarez [facility] [employer] [address] [place] [address] 05/31/2024 10:54:30 05/31/2024 12:33:59 Uncontrolled type 2 diabetes mellitus 024981100 E11.65 last a1c 6.4% . Boost to 1 mg weekly Ozempic. Repeat labs in October Benign ess ential hypertension 0883329 I10 stable on coreg 6.25mg bid and felodipine ER 10mg daily and indapamide 2.5mg total daily. Hyperlipidemia 40245440 E78.5 on crestor 20mg daily. Repeat fasting lipid panel in October Chronic low back pain 27 3830451 M54.50 as above. Stable on medical grade cannabis therapy Age relate d macular degeneration 613012151 H35.30 noted with updated eye exam. Degenerati on of lumbar intervertebral disc 46158594 M51.369 pt uses medicinal marijuana for pain management purposes. Long-term current use of insulin 156281777 Z79.4 Patient is stable on Lantus 46 units daily Body mass index 30+ - obesity 262739377 Z68.36 BMI is 36.1 Obesity 337023681 E66.9 discussed healthy diet, exercise, controllin g carbohydra bernie and added sugars in the diet Long-term drug therapy 980633394 Z79.899 routine cbc, bmp and lft due again in October Screening for malignant neoplasm of prostate 563126430 Z12.5 Annual PSA due in October [id number] DEANNA Alvarez [facility] [employer] [address] [place] [address] 06/21/2024 15:14:08 06/21/2024 16:23:46 Adult health examination 069504226 Z00.00 Health Risk Assessment collected and reviewed Administra tion of influenza vaccine 12507477 Z23 Flu shot high dose given in the office today Administra tion of pneumococcal vaccine 72938765 Z23 Prevnar 20 given in the office Health Concerns Section Related Observation LastModified by Organization Detai ls LastModified Time None Recorded Concern Status LastModified by Organization Details LastModified Time None Recorded Advance Directives Directive N: Payers Encounter Date Sequence Insurance Name Policy Number Policy Myers Covered Member ID Myers Member ID Guarantor Name 09/16/2023 1 [facility] (MEDICARE REPLACEMENT/A DVANTAGE - HMO) [id number] Michael Salinas [id number] Michael Salinas 01/27/2024 1 [facility] (MEDICARE REPLACEMENT/A DVANTAGE - HMO) [id number] Michael Salinas [id number] Michael Salinas 01/27/2024 2 [place] Michael Salinas [id number] Michael Salinas 05/31/2024 1 [facility] (MEDICARE REPLACEMENT/A DVANTAGE - HMO) [id number] Michael Salinas [id number] Michael Salinas 05/31/2024 2 [place] Michael Salinas [id number] Michael Salinas 06/21/2024 1 [facility] (MEDICARE REPLACEMENT/A DVANTAGE - HMO) [id number] Michael Salinas [id number] Michael Salinas 06/21/2024 2 [place] Michael Salinas [id number] Michael Salinas Notes Date Note Type Note Provider Name and Address Organization Details Recorded Time 09/16/2023 text/html 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 DDD.DiabetesReported bypatient.Control:wo rsened since last visit; hemoglobin A1C has been 8-9; hemoglobin A1C goal is less than 7HyperlipidemiaRepor amaury bypatient.Type of hyperlipidemia:combi hugo Duration:chronic Control:usually well controlled Compliance:compliant ;noncompliant with diet;does not exercise Complications:no coronary artery disease; no peripheral artery disease; no cardiovascular disease Risk Factors:diabetes;hyp ertension;obesityHyp ertensionReported bypatient.Duration:h as noted for years Onset/Timing:better Alleviating Factors:medication Associated Symptoms:no shortness of breath; no fatigue; no palpitations; no decline in exercise capacity; no snoring DEANNA Alvarez Attn: Accounting[address] [place], [address], [facility] 10/01/2023 14:55:02 01/27/2024 text/html 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 DDD.DiabetesReported bypatient.Control:wo rsened since last visit; hemoglobin A1C has been 8-9; hemoglobin A1C goal is less than 7HyperlipidemiaRepor amaury bypatient.Type of hyperlipidemia:combi hugo Duration:chronic Control:usually well controlled Compliance:compliant ;noncompliant with diet;does not exercise Complications:no coronary artery disease; no peripheral artery disease; no cardiovascular disease Risk Factors:diabetes;hyp ertension;obesityHyp ertensionReported bypatient.Duration:h as noted for years Onset/Timing:better Alleviating Factors:medication Associated Symptoms:no shortness of breath; no fatigue; no palpitations; no decline in exercise capacity; no snoring DEANNA Alvarez Attn: Accounting[address] [place], [address], [facility] 02/15/2024 07:18:00 05/31/2024 text/html 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 DDD.DiabetesReported bypatient.Control:wo rsened since last visit; hemoglobin A1C has been 8-9; hemoglobin A1C goal is less than 7HyperlipidemiaRepor amaury bypatient.Type of hyperlipidemia:combi hugo Duration:chronic Control:usually well controlled Compliance:compliant ;noncompliant with diet;does not exercise Complications:no coronary artery disease; no peripheral artery disease; no cardiovascular disease Risk Factors:diabetes;hyp ertension;obesityHyp ertensionReported bypatient.Duration:h as noted for years Onset/Timing:better Alleviating Factors:medication Associated Symptoms:no shortness of breath; no fatigue; no palpitations; no decline in exercise capacity; no snoring DEANNA Alvarez Attn: Accounting[address] [place], [address], [facility] 06/15/2024 17:53:05 06/21/2024 text/html MAW 2Reported bypatient.Diet and Nutrition:healthy diet Fracture Risk:no history of fractures; no sudden unexplained fractures Concentration and Memory:no decreased concentrating ability; no memory lapses or loss; does not forget words Speech/Motor difficulties:no speech difficulties; no difficulty expressing formulated concepts; no difficulty with fine manipulative tasks; no difficulty writing/copying; no slowed reaction time; does not knock things over when trying to pick them up Hearing:no loss of hearing Vision:worse with distance(wears glasses for driving) Activities of Daily Living:able to bathe with limited or no assistance; able to contol urination and bowels; able to dress with limited or no assistance; able to feed self with limited or no assistance; able to get out of chair or bed with limited or no assistance; able to groom with limited or no assistance; able to toilet with limited or no assistance Instrumental Activities of Daily Living:able to do house work with limited or no assistance; able to grocery shop with limited or no assistance; able to manage medications with limited or no assistance; able to manage money with limited or no assistance; able to prepare meals with limited or no assistance; able to use the phone with limited or no assistance Falls Risk Assessment:no frequent falls while walking; no fall in the past year; no fall since last visit; no dizziness/vertigo Home Safety:no unsafe uvaldo hazzards; no unsafe stairs; working smoke/CO detectors; practicing 'safer sex'; good lighting in the home;fire arms;does not have hand bars in the bathroom/shower DEANNA Alvarez Attn: Accounting[address] [place], [address], [facility] 06/21/2024 16:30:32
--- OUTSIDE RECORDS SUMMARY | 2024-10-24 00:35 | XMS_ITS | Clinical Summary ---
Author Organization [facility] Address [facility] access [facility] [place] [address] Care Team Providers Care Publicity Expert Name Role Phone Oksana Frausto Primary Care Provider [phone] Allergies Active Allergy Reactions Criticality Noted Date Comments Sulfa Antibiotics Nausea Only Medium 09/19/2019 Medications carvedilol 12.5 MG tablet Take 12.5 mg by mouth 2 (two) times daily. Active quinapril 10 MG tablet Take 40 mg by mouth in the morning. Active aspirin EC 81 MG tablet Take 81 mg by mouth daily. Active indapamide 1.25 MG tablet Take 1.25 mg by mouth every morning. Active felodipine ER 10 MG TABLET SR 24 HR 24 hr tablet 10 mg daily. Active rosuvastatin 20 MG tablet Take 20 mg by mouth in the morning and 20 mg in the evening. 11/05/2021 Active metFORMIN 850 MG tablet 20 mg in the morning. Active insulin glargine (LANTUS SOLOSTAR) 100 UNIT/ML injection (PEN) 30 Units daily. Active vitamin B-12 1000 MCG tablet Take 1,000 mcg by mouth in the morning. Active fish oil 1000 MG Cap capsule Take 1,000 mg by mouth in the morning and 1,000 mg before bedtime. Active Lancets (ONETOUCH DELICA PLUS [id number]) [facility] OneTouch Delica Plus Lancet 30 gauge TEST 3 TO 4 TIMES D Active Blood Glucose Monitoring Suppl (ONETOUCH PING METER REMOTE) Supplies [facility] OneTouch Ultra2 Meter USE TO TEST UTD Active Family History Medical History Relation Comments Cancer Brother Cancer Mother Lupus Sister Relation Status Comments Brother Mother Sister Social History Tobacco Use Types Packs/Day Years Used Date Smoking Tobacco: Never Smokeless Tobacco: Never Alcohol Use Standard Drinks/Week Comments Never 0 (1 standard drink = 0.6 oz pur e alcohol) AUDIT-C Answer Date Recorded Frequency of Alcohol Consumption Never 09/19/2019 Average Number of Drinks Not on file 020 Frequency of Binge Drinking Not on file 10/2019 Sex and Gender Information Value Date Recorded Sex Assigned at Not on file Legal Sex Male 9:45 AM [employer] Gender Identity Not on file Sexual Orientation Not on file Last Filed Vital Signs Vital Sign Reading Time Taken Comments Blood Pressure 163/90 06/21/2022 3:20 PM [employer]OO[employer] Pulse 75 06/21/2022 3:20 PM [employer] Temperature 36.6 C (97.8 F) 06/21/2022 2:44 PM [employer]OO[employer]ER Respiratory Rate 20 06/21/2022 3:20 PM [employer]OO[employer]ER Oxygen Saturation 96% 06/21/2022 3:20 PM [employer]OO[employer] ASSEM[employer]ER Inhaled Oxygen Concentration - - Weight 97.7 kg (215 lb 6.4 oz) 06/21/2022 2:44 P M [employer] Height 165.1 cm (5' 5 ) 06/21/2022 2:44 PM [employer]OO[employer] Body Mass Index 35.84 06/21/2022 2:44 PM [employer]OO[employer]ER Plan of Treatment Health Maintenance Due Date Last Done Comments Colorectal Cancer Screening Colonoscopy (10 Years) 1955 Hepatitis C 1973 DTaP, Tdap and Td Vaccines (1 - Tdap) 1974 Zoster Vaccines (1 of 2) 2005 Annual Medicare Wellness Visit 2020 Pneumococcal Vaccine: 65+ Years (2 of 2 - PPSV23 or PCV20) 11/07/2021 11/07/2020 COVID-19 Vaccine ( season) 2024 05/19/2022, 05/31/2021, 05/31/2021, Additional history exists RSV Immunization or 60+ Years (1 - 1-dose 75+ series) 2030 Meningococcal B Vaccine Aged Out No l onger eligible based on patient's age to complete this topic Meningococcal Vaccine Aged Out No mary sana eligible based on patient's age to complete this topic RSV Immunizations Under 20 Months Aged Out No longer eligible based on patient's age to complete this topic Insurance [facility] [place] [address] Care Teams Publicity Expert Relationship Specialty Start Date End Date Oksana Frausto PA [address] [place] [id number] PCP - General PHYSICIAN [employer] 12/07/21
[2024-10-24 10:31] LABS: Glucose Point of Care 102 mg/dl (65-105)
[2024-10-24 10:36] VITALS: BP 95/95; PULSE 75; RESP 18; TEMP 35.8; O2SAT 98
[2024-10-24] MEDS: LACTATED RINGERS 1,000 ML 150 ML IV CONT (10:47)
--- NOTE | 2024-10-24 11:06 | P.PNAN_ITS ---
Anes - Initial Pre Proc Eval Procedure: Operation Date: 10/24/24 11:30 Proposed Procedures p Colonoscopy - Lul Gunter MD Date/Time: 10/24/24 11:06 Surgeon: Lul Gunter MD Pre Op Diagnosis: personal hx of colon polyps Patient Data Age: 69 Gender: M Height: 1.65 m Weight: 91.7 kg Last Vital Signs Temp 35.8 C L 10/24/24 10:36 Pulse 75 10/24/24 10:36 Resp 18 10/24/24 10:36 BP 95/95 L 10/24/24 10:36 Pulse Ox 98 10/24/24 10:36 O2 Del Method Room Air 10/24/24 10:36 Allergies Allergy/AdvReac Type Severity Reaction Status Date / Time atorvastatin Allergy Unknown Unknown Verified 10/24/24 10:30 Sulfa (Sulfonamide Allergy Unknown RASH Verified 10/24/24 10:30 Antibiotics) sulfanilamide Allergy Unknown RASH Verified 10/24/24 10:30 Home Medications ?Medication ?Instructions ?Recorded ?Confirmed ?Type carvedilol 6.25 mg tablet 6.25 mg PO Q12H 02/11/20 10/24/24 History cyanocobalamin (vitamin B-12) 5,000 mcg PO DAILY 02/11/20 10/24/24 History 1,000 mcg tablet felodipine 10 mg tablet,extended 10 mg PO DAILY 02/11/20 10/24/24 History release 24 hr glucosamine-chondroitin 250 mg-200 1 tablet PO BID 02/11/20 10/24/24 History mg tablet (Osteo Bi-Flex) indapamide 1.25 mg tablet 1.25 mg PO BID 02/11/20 10/24/24 History pioglitazone 15 mg-metformin 850 15 - 850 tablet PO QPM 02/11/20 10/16/24 History mg tablet quinapril 40 mg tablet 40 mg PO BID 02/11/20 10/16/24 History blood sugar diagnostic (Blood #100 ea 02/12/20 Rx Glucose Test strips) blood-glucose meter (Blood Glucose #1 ea 02/12/20 Rx Monitoring kit) metformin 850 mg tablet 850 mg PO QPM #30 tabs 02/12/20 10/24/24 Rx (Glucophage) pen needle, diabetic 29 gauge x #90 ea 02/12/20 Rx 1/2 (Advocate Pen Needle) aspirin 81 mg tablet,delayed 81 mg PO DAILY 10/16/24 10/24/24 History release (Adult Low Dose Aspirin) insulin glargine 100 unit/mL (3 46 unit subcut QPM 10/16/24 10/24/24 History mL) subcutaneous pen (Lantus Solostar U-100 Insulin) lisinopril 40 mg tablet 40 mg PO BID 10/16/24 10/24/24 History rosuvastatin 20 mg tablet 20 mg PO DAILY 10/16/24 10/24/24 History semaglutide 1 mg/dose (4 mg/3 mL) 1 mg subcut WEEKLY 10/16/24 10/24/24 History subcutaneous pen injector (Ozempic) Laboratory Tests 10/24/24 10:23 POC Capillary Glucose 102 mg/dl (65-105) Patient hx anesthesia problems: none Family hx anesthesia problems: none Results Review: All pre-operative results and documents have been reviewed as part of the pre- operative evaluation. [facility] Past Medical History Medical History Diverticulitis Degenerative disc disease Bladder stones Kidney stones Hyperlipidemia Uncontrolled type 2 diabetes mellitus Hemoglobin A1c was 13% on 02/11/2020. Hypertension Surgical History Surgical History History of appendectomy History of lithotripsy History of cystoscopy Family History Family History Mother Family history of heart disease in male family member before age 55 Family history of elevated blood lipids Family history of diabetes mellitus in first degree relative Family history of obesity Family history of congestive heart failure Hypertension Sibling Family history of diabetes mellitus in first degree relative Family history of lupus erythematosus Mesothelioma Other Diabetes mellitus Family history of kidney disease Social History Social History Social History: Surrogate decision maker: Dennise Salinas, . Code status: Full code. Smoking status: Never smoker Alcohol intake: never Substance use: current Substance use type: marijuana Other substance usage details: MEDICAL CANNIBAS DAILY Living arrangements: with family Additional living arrangements comments: Lives with his and son in [place]. 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 Spiritual care concerns: No Anes - Eval Final PreProcedure Day of Procedure 10/24/24 11:06 Patient weight: obese Heart: regular rate and rhythm Lungs: clear to auscultation Airway: Mallampati scale class II Neurological: alert and oriented Last oral intake: >/= 8 hours ASA classification: III Emergent: no Anesthetic plan: proceed Anesthesia type and monitoring: general GIVS and standard monitoring Results Review: All pre-operative results and documents have been reviewed as part of the pre- operative evaluation. Informed Consent: The patient's anesthetic plan and its attendant risks and benefits were discussed with the patient/family/POA. Questions were solicited and answers provided to the satisfaction of the patient/family/POA.
--- NOTE | 2024-10-24 11:32 | P.HP_ITS ---
H&P: HPI History of Present Illness Date/Time: 10/24/24 11:32 Chief Complaint: History of colon polyps Narrative: The patient has a history of colonic polyps, the last colonoscopy was approximately 5 years ago. Review of Systems Review of Systems: All systems reviewed & are unremarkable except as noted in HPI and below PMFSH Past Medical History Medical History Diverticulitis Degenerative disc disease Bladder stones Kidney stones Hyperlipidemia Uncontrolled type 2 diabetes mellitus Hemoglobin A1c was 13% on 02/11/2020. Hypertension Surgical History Surgical History History of appendectomy History of lithotripsy History of cystoscopy Family History Family History Mother Family history of heart disease in male family member before age 55 Family history of elevated blood lipids Family history of diabetes mellitus in first degree relative Family history of obesity Family history of congestive heart failure Hypertension Sibling Family history of diabetes mellitus in first degree relative Family history of lupus erythematosus Mesothelioma Other Diabetes mellitus Family history of kidney disease Social History Social History Social History: Surrogate decision maker: Dennise Salinas, . Code status: Full code. Smoking status: Never smoker Alcohol intake: never Substance use: current Substance use type: marijuana Other substance usage details: MEDICAL CANNIBAS DAILY Living arrangements: with family Additional living arrangements comments: Lives with his and son in [place]. 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 Spiritual care concerns: No Meds Home Medications and Allergies Home Medications ?Medication ?Instructions ?Recorded ?Confirmed ?Type carvedilol 6.25 mg tablet 6.25 mg PO Q12H 02/11/20 10/24/24 History cyanocobalamin (vitamin B-12) 5,000 mcg PO DAILY 02/11/20 10/24/24 History 1,000 mcg tablet felodipine 10 mg tablet,extended 10 mg PO DAILY 02/11/20 10/24/24 History release 24 hr glucosamine-chondroitin 250 mg-200 1 tablet PO BID 02/11/20 10/24/24 History mg tablet (Osteo Bi-Flex) indapamide 1.25 mg tablet 1.25 mg PO BID 02/11/20 10/24/24 History pioglitazone 15 mg-metformin 850 15 - 850 tablet PO QPM 02/11/20 10/16/24 History mg tablet quinapril 40 mg tablet 40 mg PO BID 02/11/20 10/16/24 History blood sugar diagnostic (Blood #100 ea 02/12/20 Rx Glucose Test strips) blood-glucose meter (Blood Glucose #1 ea 02/12/20 Rx Monitoring kit) metformin 850 mg tablet 850 mg PO QPM #30 tabs 02/12/20 10/24/24 Rx (Glucophage) pen needle, diabetic 29 gauge x #90 ea 02/12/20 Rx 1/2 (Advocate Pen Needle) aspirin 81 mg tablet,delayed 81 mg PO DAILY 10/16/24 10/24/24 History release (Adult Low Dose Aspirin) insulin glargine 100 unit/mL (3 46 unit subcut QPM 10/16/24 10/24/24 History mL) subcutaneous pen (Lantus Solostar U-100 Insulin) lisinopril 40 mg tablet 40 mg PO BID 10/16/24 10/24/24 History rosuvastatin 20 mg tablet 20 mg PO DAILY 10/16/24 10/24/24 History semaglutide 1 mg/dose (4 mg/3 mL) 1 mg subcut WEEKLY 10/16/24 10/24/24 History subcutaneous pen injector (Ozempic) Allergies Allergy/AdvReac Type Severity Reaction Status Date / Time atorvastatin Allergy Unknown Unknown Verified 10/24/24 10:30 Sulfa (Sulfonamide Allergy Unknown RASH Verified 10/24/24 10:30 Antibiotics) sulfanilamide Allergy Unknown RASH Verified 10/24/24 10:30 Vital Signs Vital Signs - 24 hr 10/24/24 10:36 Temperature 96.4 F L Pulse Rate 75 Respiratory Rate 18 Blood Pressure 95/95 L Pulse Oximetry 98 Oxygen Delivery Room Air Exam Const: General: cooperative and healthy appearing Resp: Effort & Inspection: normal respiratory effort and able to speak in complete sentences Auscultation: clear to auscultation bilaterally Cardio: Rate: regular rate Rhythm: regular rhythm GI: Inspection: normal to inspection GI Palp: No No hepatosplenomegaly present Auscultation: normal bowel sounds Rectal Exam: deferred Skin: General skin exam: normal color Psych: Appearance: grossly normal Mental Status: mental status grossly normal Assessment and Plan Assessment and plan (1) History of colonic polyps: Code(s): Z86.0100 - Personal history of colon polyps, unspecified Status: Acute Assessment and Plan: The patient is deemed a good candidate for the procedure. Consent signed. Will proceed.
[2024-10-24 11:54] VITALS: BP 108/77; PULSE 77; RESP 22; O2SAT 97
--- NOTE | 2024-10-24 12:00 | PM.IMHP ---
H&P: HPI History of Present Illness Date/Time: 10/24/24 12:00 Chief Complaint: Family history of colorectal cancer -history of colon polyps Narrative: The patient has a history of colonic polyps, the last colonoscopy was 6 years ago. This patient has family history of colorectal cancer. His daughter has recently been diagnosed with colon cancer at age 59. Review of Systems Review of Systems: All systems reviewed & are unremarkable except as noted in HPI and below PMFSH Past Medical History Medical History Diverticulitis Degenerative disc disease Bladder stones Kidney stones Hyperlipidemia Uncontrolled type 2 diabetes mellitus Hemoglobin A1c was 13% on 02/11/2020. Hypertension Surgical History Surgical History History of appendectomy History of lithotripsy History of cystoscopy Family History Family History Mother Family history of heart disease in male family member before age 55 Family history of elevated blood lipids Family history of diabetes mellitus in first degree relative Family history of obesity Family history of congestive heart failure Hypertension Sibling Family history of diabetes mellitus in first degree relative Family history of lupus erythematosus Mesothelioma Other Diabetes mellitus Family history of kidney disease Social History Social History Social History: Surrogate decision maker: Dennise Salinas, . Code status: Full code. Smoking status: Never smoker Alcohol intake: never Substance use: current Substance use type: marijuana Other substance usage details: MEDICAL CANNIBAS DAILY Living arrangements: with family Additional living arrangements comments: Lives with his and son in [place]. 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 Spiritual care concerns: No Meds Home Medications and Allergies Home Medications ?Medication ?Instructions ?Recorded ?Confirmed ?Type carvedilol 6.25 mg tablet 6.25 mg PO Q12H 02/11/20 10/24/24 History cyanocobalamin (vitamin B-12) 5,000 mcg PO DAILY 02/11/20 10/24/24 History 1,000 mcg tablet felodipine 10 mg tablet,extended 10 mg PO DAILY 02/11/20 10/24/24 History release 24 hr glucosamine-chondroitin 250 mg-200 1 tablet PO BID 02/11/20 10/24/24 History mg tablet (Osteo Bi-Flex) indapamide 1.25 mg tablet 1.25 mg PO BID 02/11/20 10/24/24 History pioglitazone 15 mg-metformin 850 15 - 850 tablet PO QPM 02/11/20 10/16/24 History mg tablet quinapril 40 mg tablet 40 mg PO BID 02/11/20 10/16/24 History blood sugar diagnostic (Blood #100 ea 02/12/20 Rx Glucose Test strips) blood-glucose meter (Blood Glucose #1 ea 02/12/20 Rx Monitoring kit) metformin 850 mg tablet 850 mg PO QPM #30 tabs 02/12/20 10/24/24 Rx (Glucophage) pen needle, diabetic 29 gauge x #90 ea 02/12/20 Rx 1/2 (Advocate Pen Needle) aspirin 81 mg tablet,delayed 81 mg PO DAILY 10/16/24 10/24/24 History release (Adult Low Dose Aspirin) insulin glargine 100 unit/mL (3 46 unit subcut QPM 10/16/24 10/24/24 History mL) subcutaneous pen (Lantus Solostar U-100 Insulin) lisinopril 40 mg tablet 40 mg PO BID 10/16/24 10/24/24 History rosuvastatin 20 mg tablet 20 mg PO DAILY 10/16/24 10/24/24 History semaglutide 1 mg/dose (4 mg/3 mL) 1 mg subcut WEEKLY 10/16/24 10/24/24 History subcutaneous pen injector (Ozempic) Allergies Allergy/AdvReac Type Severity Reaction Status Date / Time atorvastatin Allergy Unknown Unknown Verified 10/24/24 10:30 Sulfa (Sulfonamide Allergy Unknown RASH Verified 10/24/24 10:30 Antibiotics) sulfanilamide Allergy Unknown RASH Verified 10/24/24 10:30 Vital Signs Vital Signs - 24 hr 10/24/24 10:36 Temperature 96.4 F L Pulse Rate 75 Respiratory Rate 18 Blood Pressure 95/95 L Pulse Oximetry 98 Oxygen Delivery Room Air Exam Const: General: cooperative and healthy appearing Resp: Effort & Inspection: normal respiratory effort and able to speak in complete sentences Auscultation: clear to auscultation bilaterally Cardio: Rate: regular rate Rhythm: regular rhythm GI: Inspection: normal to inspection GI Palp: No No hepatosplenomegaly present Auscultation: normal bowel sounds Rectal Exam: deferred Skin: General skin exam: normal color Psych: Appearance: grossly normal Mental Status: mental status grossly normal Assessment and Plan Assessment and plan (1) History of colonic polyps: Code(s): Z86.0100 - Personal history of colon polyps, unspecified Status: Acute Assessment and Plan: The patient is deemed a good candidate for the procedure. Consent signed. Will proceed. (2) Family history of colon cancer: Code(s): Z80.0 - Family history of malignant neoplasm of digestive organs Status: Acute
[2024-10-24 12:04] VITALS: BP 106/56; PULSE 73; RESP 23; O2SAT 100
[2024-10-24 12:14] VITALS: BP 110/71; PULSE 67; RESP 22; O2SAT 100
[2024-10-24 12:22] LABS: Glucose Point of Care 87 mg/dl (65-105)
== END 2024-10-24 12:28 | disposition home or self-care (01) ==
PROVIDERS: PCP Physician Assistant; Referring Provider Physician Assistant; Visit Provider Internal Medicine Gastroenterology
PROC: 0DJD8ZZ Inspection of Lower Intestinal Tract, Via Natural or Artificial Opening Endoscopic (ICD-10-PCS; CPT 45378; principal; 2024-10-24 11:30)
DX: Z12.11 Encounter for screening for malignant neoplasm of colon (principal); D12.2 Benign neoplasm of ascending colon; K57.30 Diverticulosis of large intestine without perforation or abscess without bleeding; K64.8 Other hemorrhoids; E11.9 Type 2 diabetes mellitus without complications; I10 Essential (primary) hypertension; Z79.84 Long term (current) use of oral hypoglycemic drugs; F12.90 Cannabis use, unspecified, uncomplicated; E66.9 Obesity, unspecified; Z68.33 Body mass index [BMI] 33.0-33.9, adult
CPT/HCPCS: 45385; 82948; 88305; J2003; J2704; J7120

== ENCOUNTER 2025-02-06 08:32 | Inpatient (IN) | payer MEDICARE, SELFPAY ==
[2025-02-06] VITALS (15 sets, daily range): BP systolic 97–121; BP diastolic 55–78; PULSE 70–80; RESP 14–19; TEMP 35.7–37.5; O2SAT 93–100; BMI 32.7
--- NOTE | ~2025-02-06 | CT_ITS ---
EXAMINATION: CT abdomen pelvis w con DATE: 02/06/2025 09:25 INDICATION: Hernia TECHNIQUE: Computed tomography (CT) of the abdomen and pelvis was performed with 100 cc Omnipaque 350 intravenous contrast. The dose-length product was 911.13 mGy-cm. Automated exposure control and iterative reconstruction technique were employed. COMPARISON: CT dated 10/01/2017. FINDINGS: Lung bases are unremarkable. Heart size normal. No significant pleural or pericardial effus ion. Fatty infiltration of the liver. The spleen, pancreas, adrenal glands and gallbladder are unrema rkable. There are bilateral renal cysts. There is an umbilical hernia containing fat without evidence of bowel loops in the hernia sac. The herniated fat appears engorged an inflamed a menstruating stra nding, soft tissue thickening and early phlegmonous change. There is surrounding inflammatory change in the adjacent subcutaneous fat of the anterior abdominal wall with mild skin thickening. No discret e fluid collection or drainable abscess is identified at this time. No free air or free fluid. Bladde r is not well distended for evaluation of wall thickening. Colonic diverticulosis without evidence fo r diverticulitis. No significant vascular abnormality. No lymphadenopathy. Fatty infiltration of the liver. The spleen, pancreas are unremarkable. Mild osteoarthritis of the hips. Mild lower thoracic an d lumbar spondylosis. IMPRESSION: 1. Umbilical hernia with incarcerated fat and associated phlegmonous inflammatory changes involving b oth the herniated fat and adjacent subcutaneous tissues. Recommend surgical evaluation due to evidenc e of fat incarceration and evolving inflammation. Reviewed, dictated and finalized at location A. IMPRESSION: 1. Umbilical hernia with incarcerated fat and associated phlegmonous inflammato ry changes involving both the herniated fat and adjacent subcutaneous tissues. Recommend surgical evaluation due to evidence of fat incarceration and evolving inflammation.
--- OUTSIDE RECORDS SUMMARY | 2025-02-06 08:33 | XMS_ITS | Data Portability ---
Author Organization [employer] [facility] [facility], Main Office Address [address] [place] [address] Assessment Encounter Date Assessment Date Assessment LastModified by Organization Details LastModified Time 06/21/2023 06/21/2023 colonoscopy 2019 UTD [email or web address] Not available 06/21/2023 14:57:44 Plan of Treatment Reminders Order Date Submit Date Provider Last Modified By Organization Details Last Modified Time Details Appointments None recorded. Lab PSA, total, serum or plasma 2022 023 [email or web address] [facility], 2022 Christina Nicole[address], [place], [address], 3 14:49:41 HbA1c (hemoglobin A1c), blood 2022 023 [email or web address] 146 [facility], 2022 Christina Nicole[address], [place], [address], 3 12:14:26 HbA1c (hemoglobin A1c), blood 2022 023 [email or web address] [facility], 2022 Christina Nicole[address], [place], [address], 3 14:44:33 microalbumi n, urine 2022 023 [email or web address] [facility], 2022 Christina Nicole[address], [place], [address], 3 14:49:51 albumin/cre atinine, mass ratio, urine 2022 023 [email or web address] [facility], 2022 Christina Nicole[address], [place], [address], 3 14:50:02 CBC w/ auto diff 2022 023 [place] [address] [facility], 2022 Christina Nicole[address], [place], [address], 3 12:14:27 hepatic function panel, serum 2022 023 [email or web address], 2022 Christina Nicole[address], [place], [address], 3 12:14:27 BMP, serum or plasma 2022 023 [place] [address] [facility], 2022 Christina Nicole[address], [place], [address], 3 12:14:27 TSH + free T4, serum 2022 023 ALEX [facility], 2022 Christina Nicole[address], [place], [address], 3 16:00:05 BMP, serum or plasma 2022 023 [email or web address] [facility], 2022 Christina Nicole[address], [place], [address], 3 14:44:58 hepatic function panel, serum 2022 023 [email or web address] [facility], 2022 Christina Nicole[address], [place], [address], 3 14:45:46 CBC w/ auto diff 2022 023 [email or web address] [facility], 2022 Christina Nicole[address], [place], [address], 14:49:32 lipid panel, serum 05/16/ 2023 05/16/2 023 [email or web address] 146 [facility], 2022 Christina Nicole[address], [place], [address], 3 12:14:26 lipid panel, serum 2022 023 [email or web address] [facility], 2022 Christina Nicole[address], [place], [address], 14:44:47 Referral None recorded. Procedures None recorded. Surgeries None recorded. Imaging None recorded. Medication Orders Mounjaro 2.5 mg/0.5 mL subcutaneou s pen injector 2022 023 [id number], [address] [facility], [place], [place], [id number], 14:52:51 Patient TargetsNo targets recorded. Patient InstructionsNo instructions recorded. Reason for Referral None Reported. Results Created Date Observation Date Name Description Value Unit Range Abnormal Flag Note LastModifiedBy Organization Detail LastModifiedTime 05/12/20 21 05/13/2021 PROST ATE-S PECIF IC AG prostate specific [...] kits canno t be used inter post elmo . Resul ts canno t be inter prete d as absol pilar evide nce of the prese nce or absen ce of ilana rangel se. Not Available [facility] ([facility]) [address] [facility], [place], [address], 05/13/2021 10:37:13 05/12/20 21 05/13/2021 HEMOG LOBIN A1C hemoglobin A1C 7.4 % 4.8-5. 6 above high normal Predi abete s: 5.7 - 6.4 Diabe bernie: >6.4 Glyce mabel contr ol for adult s with diabe bernie: <7.0 Not Available [facility] ([facility]) [address] [place], [address], 05/13/2021 10:37:13 05/12/20 21 05/13/2021 ALBUM IN/CR EATIN INE RATIO ,URIN E creatinine, urine 62.3 mg/dL not estab. Not Available [facility] ([facility]) [address] [place], [address], 05/13/2021 10:37:12 05/12/20 21 05/13/2021 ALBUM IN/CR EATIN INE RATIO ,URIN E albumin, urine 5.2 ug/mL not estab. Not Available [facility] ([facility]) [address] [facility], [place], [address], 05/13/2021 10:37:12 05/12/2005/13/2021 ALBUM IN/CR EATIN INE RATIO ,URIN E alb/creat ratio 8 mg/g_ creat 0-29 Lanny l: 0 - 29 Moder ately incre ased: 30 - 300 Sever serenity incre ased: >300 Not Available [facility] ([facility]) [address] [place], [address], 05/13/2021 10:37:12 05/12/20 21 05/13/2021 HEPAT IC FUNCT ION PANEL (7) protein, total 7.1 g/dL 6.0-8. 5 Not Available [facility] ([facility]) [address] [place], [address], 05/13/2021 10:37:12 05/12/20 21 05/13/2021 HEPAT IC FUNCT ION PANEL (7) albumin 4.5 g/dL 3.8-4. 8 Not Available [facility] ([facility]) [address] [place], [address], 05/13/2021 10:37:12 05/12/20 21 05/13/2021 HEPAT IC FUNCT ION PANEL (7) bilirubin, total 0.8 mg/dL 0.0-1. 2 Not Available [facility] ([facility]) [address] [place], [address], 05/13/2021 10:37:12 05/12/20 21 05/13/2021 HEPAT IC FUNCT ION PANEL (7) bilirubin, direct 0.23 mg/dL 0.00-0 .40 Not Available [facility] ([facility]) [address] [place], [address], 05/13/2021 10:37:12 05/12/2005/13/2021 HEPAT IC FUNCT ION PANEL (7) alkaline phosphatase 56 IU/L 44-121 Ple ase note refer ence inter joseph post e Not Available [facility] ([facility]) [address] [place], [address], 05/13/2021 10:37:12 05/12/20 21 05/13/2021 HEPAT IC FUNCT ION PANEL (7) AST (SGOT) 20 IU/L 0-40 Not Available [facility] ([facility]) [address] [place], [address], 05/13/2021 10:37:12 05/12/20 21 05/13/2021 HEPAT IC FUNCT ION PANEL (7) ALT (SGPT) 24 IU/L 0-44 Not Available [facility] ([facility]) [address] [place], [address], 05/13/2021 10:37:12 05/12/20 21 05/13/2021 LIPID PANEL cholesterol, total 150 mg/dL 100-19 9 Not Available [facility] ([facility]) [address] [place], [address], 05/13/2021 10:37:11 05/12/20 21 05/13/2021 LIPID PANEL triglyceride s 124 mg/dL 0-149 Not Available [facility] ([facility]) [address] [place], [address], 05/13/2021 10:37:11 05/12/20 21 05/13/2021 LIPID PANEL HDL cholesterol 44 mg/dL >39 Not Available [facility] ([facility]) [address] [place], [address], 05/13/2021 10:37:11 05/12/20 21 05/13/2021 LIPID PANEL VLDL cholesterol fanny 22 mg/dL 5-40 Not Available [facility] ([facility]) [address] [place], [address], 05/13/2021 10:37:11 05/12/20 21 05/13/2021 LIPID PANEL LDL chol calc ([facility]) 84 mg/dL 0-99 Not Available [facility] ([facility]) [address] [place], [address], 05/13/2021 10:37:11 05/12/20 21 05/13/2021 LIPID PANEL comment: ham curer Not Available [facility] ([facility]) [address] [place], [address], 05/13/2021 10:37:11 05/12/20 21 05/13/2021 BASIC METAB OLIC PANEL (8) glucose 126 mg/dL 65-99 above high normal Not Available [facility] ([facility]) [address] [place], [address], 05/13/2021 10:37:11 05/12/20 21 05/13/2021 BASIC METAB OLIC PANEL (8) BUN 10 mg/dL 8-27 Not Available [facility] ([facility]) [address] [facility], [place], [address], 05/13/2021 10:37:11 05/12/2005/13/2021 BASIC METAB OLIC PANEL (8) creatinine 0.82 mg/dL 0.76-1 .27 Not Available [facility] ([facility]) [address] [facility], [place], [address], 05/13/2021 10:37:11 05/12/2005/13/2021 BASIC METAB OLIC PANEL (8) eGFR if nonafricn AM 93 mL/mi n/1.7 3 >59 Not Available [facility] ([facility]) [address] [facility], [place], [address], 05/13/2021 10:37:11 05/12/2005/13/2021 BASIC METAB OLIC PANEL (8) eGFR if [...] a race varia ble. Not Available [facility] ([facility]) [address], [place], [address], 05/13/2021 10:37:11 05/12/20 21 05/13/2021 BASIC METAB OLIC PANEL (8) BUN/creatini ne ratio 12 10-24 Not Available [facility] ([facility]) [address] [facility], [place], [address], 05/13/2021 10:37:11 05/12/20 21 05/13/2021 BASIC METAB OLIC PANEL (8) sodium 139 mmol/ L 134-14 4 Not Available [facility] ([facility]) [address] [place], [address], 05/13/2021 10:37:11 05/12/20 21 05/13/2021 BASIC METAB OLIC PANEL (8) potassium 4.0 mmol/ L 3.5-5. 2 Not Available [facility] ([facility]) [address] [facility], [place], [address], 05/13/2021 10:37:11 05/12/20 21 05/13/2021 BASIC METAB OLIC PANEL (8) chloride 97 mmol/ L 96-106 Not Available [facility] ([facility]) [address] [place], [address], 05/13/2021 10:37:11 05/12/2005/13/2021 BASIC METAB OLIC PANEL (8) carbon dioxide, total 25 mmol/ L 20-29 Not Available [facility] ([facility]) [address] [place], [address], 05/13/2021 10:37:11 05/12/2005/13/2021 BASIC METAB OLIC PANEL (8) calcium 9.6 mg/dL 8.6-10 .2 Not Available [facility] ([facility]) [address] [place], [address], 05/13/2021 10:37:11 05/12/2005/13/2021 URINA LYSIS , COMPL ETE specific gravity 1.010 1.005- 1.030 Not Available [facility] ([facility]) [address] [place], [address], 05/13/2021 10:37:10 05/12/2005/13/2021 URINA LYSIS , COMPL ETE pH 6.0 5.0-7. 5 Not Available [facility] ([facility]) [address] [place], [address], 05/13/2021 10:37:10 05/12/20 21 05/13/2021 URINA LYSIS , COMPL ETE urine-color yellow yellow Not Available [facility] ([facility]) [address], [place], [address], 05/13/2021 10:37:10 05/12/2005/13/2021 URINA LYSIS , COMPL ETE appearance clear clear Not Available [facility] ([facility]) [address], [place], [address], 05/13/2021 10:37:10 05/12/2005/13/2021 URINA LYSIS , COMPL ETE WBC esterase negati ve negati ve Not Available [facility] ([facility]) [address] [place], [address], 05/13/2021 10:37:10 05/12/2005/13/2021 URINA LYSIS , COMPL ETE protein negati ve negati ve/tra ce Not Available [facility] ([facility]) [address], [place], [address], 05/13/2021 10:37:10 05/12/2005/13/2021 URINA LYSIS , COMPL ETE glucose negati ve negati ve Not Available [facility] ([facility]) [address], [place], [address], 05/13/2021 10:37:10 05/12/20 21 05/13/2021 URINA LYSIS , COMPL ETE ketones negati ve negati ve Not Available [facility] ([facility]) [address] [place], [address], 05/13/2021 10:37:10 05/12/2005/13/2021 URINA LYSIS , COMPL ETE occult blood negati ve negati ve Not Available [facility] ([facility]) [address] [place], [address], 05/13/2021 10:37:10 05/12/2005/13/2021 URINA LYSIS , COMPL ETE bilirubin negati ve negati ve Not Available [facility] ([facility]) [address] [facility], [place], [address], 05/13/2021 10:37:10 05/12/2005/13/2021 URINA LYSIS , COMPL ETE urobilinogen ,semi-qn 0.2 mg/dL 0.2-1. 0 Not Available [facility] ([facility]) [address] [facility], [place], [address], 05/13/2021 10:37:10 05/12/2005/13/2021 URINA LYSIS , COMPL ETE nitrite, urine negati ve negati ve Not Available [facility] ([facility]) [address], [place], [address], 05/13/2021 10:37:10 05/12/2005/13/2021 URINA LYSIS , COMPL ETE microscopic examination commen t Micro scopi c follo ws if indic ated. Not Available [facility] ([facility]) [address], [place], [address], 05/13/2021 10:37:10 05/12/20 21 05/13/2021 URINA LYSIS , COMPL ETE microscopic examination see below: Micro scopi c was indic ated and was perfo rmed. Not Available [facility] ([facility]) [address], [place], [address], 05/13/2021 10:37:10 05/12/20 21 05/13/2021 URINA LYSIS , COMPL ETE WBC none seen /hpf 0 - 5 Not Available [facility] ([facility]) [address], [place], [address], 05/13/2021 10:37:10 05/12/20 21 05/13/2021 URINA LYSIS , COMPL ETE RBC none seen /hpf 0 - 2 Not Available [facility] ([facility]) [address] [facility], [place], [address], 05/13/2021 10:37:10 05/12/20 21 05/13/2021 URINA LYSIS , COMPL ETE epithelial cells (non renal) none seen /hpf 0 - 10 Not Available [facility] ([facility]) [address], [place], [address], 05/13/2021 10:37:10 05/12/20 21 05/13/2021 URINA LYSIS , COMPL ETE epithelial cells (renal) ham curer Not Available [facility] ([facility]) [address] [facility], [place], [address], 05/13/2021 10:37:10 05/12/20 21 05/13/2021 URINA LYSIS , COMPL ETE casts none seen /lpf none seen Not Available [facility] ([facility]) [address], [place], [address], 05/13/2021 10:37:10 05/12/20 21 05/13/2021 URINA LYSIS , COMPL ETE cast type ham curer Not Available [facility] ([facility]) [address] [facility], [place], [address], 05/13/2021 10:37:10 05/12/20 21 05/13/2021 URINA LYSIS , COMPL ETE crystals ham curer Not Available [facility] ([facility]) [address] [facility], [place], [address], 05/13/2021 10:37:10 05/12/20 21 05/13/2021 URINA LYSIS , COMPL ETE crystal type ham curer Not Available [facility] ([facility]) [address] [facility], [place], [address], 05/13/2021 10:37:10 05/12/20 21 05/13/2021 URINA LYSIS , COMPL ETE mucus threads ham curer Not Available [facility] ([facility]) [address] [facility], [place], [address], 05/13/2021 10:37:10 05/12/2005/13/2021 URINA LYSIS , COMPL ETE bacteria none seen none seen/f ew Not Available [facility] ([facility]) [address] [facility], [place], [address], 05/13/2021 10:37:10 05/12/2005/13/2021 URINA LYSIS , COMPL ETE yeast ham curer Not Available [facility] ([facility]) [address], [place], [address], 05/13/2021 10:37:10 05/12/2005/13/2021 URINA LYSIS , COMPL ETE trichomonas ham curer Not Available [facility] ([facility]) [address] [facility], [place], [address], 05/13/2021 10:37:10 05/12/2005/13/2021 URINA LYSIS , COMPL ETE comment ham curer Not Available [facility] ([facility]) [address] [facility], [place], [address], 05/13/2021 10:37:10 05/12/2005/13/2021 TSH+F REE T4 TSH 1.020 uIU/m L 0.450- 4.500 Not Available [facility] ([facility]) [address], [place], [address], 05/13/2021 10:37:09 05/12/20 21 05/13/2021 TSH+F REE T4 T4,free(dire ct) 1.43 NG/dL 0.82-1 .77 Not Available [facility] ([facility]) [address], [place], [address], 05/13/2021 10:37:09 10/21/19 22 10/21/2021 HEMOG LOBIN A1C hemoglobin A1C 7.3 % 4.8-5. 6 above high normal Predi abete s: 5.7 - 6.4 Diabe bernie: >6.4 Glyce mabel contr ol for adult s with diabe bernie: <7.0 Not Available [facility] ([facility]) [address] [place], [address], 10/21/2021 08:24:39 10/21/19 22 10/21/2021 HEPAT IC FUNCT ION PANEL (7) protein, total 6.9 g/dL 6.0-8. 5 Not Available [facility] ([facility]) [address] [place], [address], 10/21/2021 08:24:39 10/21/19 22 10/21/2021 HEPAT IC FUNCT ION PANEL (7) albumin 4.2 g/dL 3.8-4. 8 Not Available [facility] ([facility]) [address] [place], [address], 10/21/2021 08:24:39 10/21/19 22 10/21/2021 HEPAT IC FUNCT ION PANEL (7) bilirubin, total 0.4 mg/dL 0.0-1. 2 Not Available [facility] ([facility]) [address] [place], [address], 10/21/2021 08:24:39 10/21/19 22 10/21/2021 HEPAT IC FUNCT ION PANEL (7) bilirubin, direct 0.13 mg/dL 0.00-0 .40 Not Available [facility] ([facility]) [address] [place], [address], 10/21/2021 08:24:39 10/21/19 22 10/21/2021 HEPAT IC FUNCT ION PANEL (7) alkaline phosphatase 53 IU/L 44-121 Not Available [facility] ([facility]) [address] [place], [address], 10/21/2021 08:24:39 10/21/19 22 10/21/2021 HEPAT IC FUNCT ION PANEL (7) AST (SGOT) 22 IU/L 0-40 Not Available [facility] ([facility]) [address] [place], [address], 10/21/2021 08:24:39 10/21/19 22 10/21/2021 HEPAT IC FUNCT ION PANEL (7) ALT (SGPT) 27 IU/L 0-44 Not Available [facility] ([facility]) [address] [place], [address], 10/21/2021 08:24:39 10/21/19 22 10/21/2021 LIPID PANEL W/ CHOL/ HDL RATIO cholesterol, total 166 mg/dL 100-19 9 Not Available [facility] ([facility]) [address] [place], [address], 10/21/2021 08:24:39 10/21/19 22 10/21/2021 LIPID PANEL W/ CHOL/ HDL RATIO triglyceride s 172 mg/dL 0-149 above high normal Not Available [facility] ([facility]) [address] [place], [address], 10/21/2021 08:24:39 10/21/19 22 10/21/2021 LIPID PANEL W/ CHOL/ HDL RATIO HDL cholesterol 43 mg/dL >39 Not Available [facility] ([facility]) [address] [place], [address], 10/21/2021 08:24:39 10/21/19 22 10/21/2021 LIPID PANEL W/ CHOL/ HDL RATIO VLDL cholesterol fanny 30 mg/dL 5-40 Not Available [facility] ([facility]) [address] [place], [address], 10/21/2021 08:24:39 10/21/19 22 10/21/2021 LIPID PANEL W/ CHOL/ HDL RATIO LDL chol calc ([facility]) 93 mg/dL 0-99 Not Available [facility] ([facility]) [address] [place], [address], 10/21/2021 08:24:39 10/21/19 22 10/21/2021 LIPID PANEL W/ CHOL/ HDL RATIO comment: ham curer Not Available [facility] ([facility]) [address] [place], [address], 10/21/2021 08:24:39 10/21/19 22 10/21/2021 LIPID PANEL W/ CHOL/ HDL RATIO T. chol/HDL ratio 3.9 ratio 0.0-5. 0 T. Chol/ HDL Ratio Men Women 1/2 Avg.R isk 3.4 3.3 Avg.R isk 5.0 4.4 2X Avg.R isk 9.6 7.1 3X Avg.R isk 23.4 11.0 Not Available [facility] ([facility]) [address] [place], [address], 10/21/2021 08:24:39 10/21/19 22 10/21/2021 BASIC METAB OLIC PANEL (8) glucose 138 mg/dL 65-99 above high normal Not Available [facility] ([facility]) [address] [place], [address], 10/21/2021 08:24:38 10/21/19 22 10/21/2021 BASIC METAB OLIC PANEL (8) BUN 15 mg/dL 8-27 Not Available [facility] ([facility]) [address] [place], [address], 10/21/2021 08:24:38 10/21/19 22 10/21/2021 BASIC METAB OLIC PANEL (8) creatinine 0.71 mg/dL 0.76-1 .27 below low normal Not Available [facility] ([facility]) [address] [place], [address], 10/21/2021 08:24:38 10/21/19 22 10/21/2021 BASIC METAB OLIC PANEL (8) eGFR 101 mL/mi n/1.7 3 >59 Not Available [facility] ([facility]) [address] [place], [address], 10/21/2021 08:24:38 10/21/19 22 10/21/2021 BASIC METAB OLIC PANEL (8) BUN/creatini ne ratio 21 10-24 Not Available [facility] ([facility]) [address] [place], [address], 10/21/2021 08:24:38 10/21/19 22 10/21/2021 BASIC METAB OLIC PANEL (8) sodium 141 mmol/ L 134-14 4 Not Available [facility] ([facility]) [address] [place], [address], 10/21/2021 08:24:38 10/21/19 22 10/21/2021 BASIC METAB OLIC PANEL (8) potassium 3.9 mmol/ L 3.5-5. 2 Not Available [facility] ([facility]) [address] [place], [address], 10/21/2021 08:24:38 10/21/19 22 10/21/2021 BASIC METAB OLIC PANEL (8) chloride 103 mmol/ L 96-106 Not Available [facility] ([facility]) [address] [place], [address], 10/21/2021 08:24:38 10/21/19 22 10/21/2021 BASIC METAB OLIC PANEL (8) carbon dioxide, total 22 mmol/ L 20-29 Not Available [facility] ([facility]) [address] [place], [address], 10/21/2021 08:24:38 10/21/19 22 10/21/2021 BASIC METAB OLIC PANEL (8) calcium 9.3 mg/dL 8.6-10 .2 Not Available [facility] ([facility]) [address] [place], [address], 10/21/2021 08:24:38 11/19/19 22 11/17/2021 MRI, lumba r spine , w/o contr ast No observ ation record ed. [id number] [facility] [address], [place], [address], 09/15/2022 05:01:07 Result Notes None recorded. Problems Name Problem SNOMED Code Status Onset Date Resolution Date Notes Provider Name and Address Organization Details Recorded Time Benign essential hypertension 8931844 Active 2018 Not Available [facility] 3 04:49:51 Type 2 diabetes mellitus 27174990 Active 2018 Not Available [facility] 3 04:49:51 Hyperlipidemi a 96282282 Active 2020 Not Available [facility] 3 04:49:51 Degeneration of lumbar intervertebra l disc 96108011 Active 2020 Not Available [facility] 3 04:49:51 Uncontrolled type 2 diabetes mellitus 562842903 Active 2021 Not Available [facility] 3 04:49:51 Problem Notes None recorded. Procedures Surgical History Date Name Laterality Status Provider Name and Address Organization Details Recorded Time 2 other completed KRISHNA Chand [place] - [facility] [place] [facility] 11/29/2022 15:46:23 9 Colonoscopy completed Not Available [facility] 09/16/19 23 04:41:57 Hernia Repair completed Not Available [facility] 09/15/2022 04:41:57 Append[facility] completed [facility] 09/15/2022 04:41:57 Imaging Results None recorded. Procedure Notes None recorded. Medical Equipment None Reported. Allergies Allergen ID Allergen Name Allergen Category Reaction Reaction Severity Criticality Documentation Date Start Date Code Code System Note Provider Name and Address Organization Details Recorded Time 7405 Substance with sulfonami de structure and antibacte rial mechanism of action (substanc e) medicatio n Not available Not available Not available 09/15/2022 27217 [id number] SNOMED Not Available [facility] 3 05:00:37 Medications Name Sig Start Date [...] Respiratory rate Body temperature Body weight Systolic And Diastolic Provider Name and Address Organization Details Last Updated DateTime 2 36.6 kg/m2 165.1 cm 97 % 97 % 64 /min 16 /min 97.5 [degF] 92954.6 g 120/80 mm[Hg] Not Available [facility] 3 04:47:19 Date Recorded Body height Body mass index (BMI) Body weight Body temperature Respiratory rate Oxygen saturation Oxygen saturation in Arterial blood by Pulse oximetry Heart rate Systolic And Diastolic Provider Name and Address Organization Details Last Updated DateTime 3 165.1 cm 37.6 kg/m2 741715. 88 g 97.8 [degF] 16 /min 97 % 97 % 61 /min 118/72 mm[Hg] KRISHNA Chand [place] - [place] [facility] 3 14:27:50 Date Recorded Body mass index (BMI) Body height Oxygen saturation Oxygen saturation in Arterial blood by Pulse oximetry Heart rate Body temperature Body weight Systolic And Diastolic Provider Name and Address Organization Details Last Updated DateTime 1 36.9 kg/m2 165.1 cm 97 % 97 % 68 /min 98 [degF] 636499. 51 g 120/80 mm[Hg] Not Available [facility] 3 04:47:18 Date Recorded Body height Oxygen saturation Oxygen saturation in Arterial blood by Pulse oximetry Heart rate Body temperature Systolic And Diastolic Systolic And Diastolic Provider Name and Address Organization Details Last Updated DateTime 2 165.1 cm 97 % 97 % 87 /min 98 [degF] 122/82 mm[Hg] 130/70 mm[Hg] Not Available [facility] 3 04:47:19 Date Recorded Body height Body temperature Body mass index (BMI) Body weight Respiratory rate Oxygen saturation Oxygen saturation in Arterial blood by Pulse oximetry Heart rate Systolic And Diastolic Provider Name and Address Organization Details Last Updated DateTime 3 165.1 cm 96.7 [degF] 37.9 kg/m2 682684. 06 g 16 /min 96 % 96 % 75 /min 120/70 mm[Hg] KRISHNA Chand [place] - [facility] 3 14:27:14 Social History Question Answer Notes LastModified by [email or web address] ion Details LastModified Time Tobacco Smoking Status Never Smoker Not Available [facility] 09/15/2022 04:30:09 Do You Have An Advance Directive? No MIGRATION.[id number] Information not available 09/15/2022 Are You Blind Or Do You Have Difficulty Seeing? No MIGRATION.227304 9837 Information not available 09/15/2022 What Is Your Level Of Caffeine Consumption? Moderate MIGRATION.350467 0941 Information not available 09/15/2022 How Much Tobacco Do You Chew? None MIGRATION.586896 2747 Information not available 09/15/2022 In The 14 Days Before Symptom Onset, Have You Had Close Contact With A Laboratory-confirm ed COVID-19 While That Case Was Ill? No MIGRATION.110081 1717 Information not available 09/15/2022 In The 14 Days Before Symptom Onset, Have You Had Close Contact With A Person Who Is Under Investigation For COVID-19 While That Person Was Ill? No MIGRATION.690660 1456 Information not available 09/15/2022 Are You Deaf Or Do You Have Serious Difficulty Hearing? No MIGRATION.068342 7949 Information not available 09/15/2022 What Type Of Diet Are You Following? REGULAR MIGRATION.376606 1194 Information not available 09/15/2022 Which Illicit Or Recreational Drugs Have You Used? Medical Marijuana MIGRATION.486739 9018 Information not available 09/15/2022 Have There Been Any Changes To Your Family Or Social Situation? No MIGRATION.781109 1734 Information not available 09/15/2022 Are There Any Guns Present In Your Home? Yes MIGRATION.181886 8776 Information not available 09/15/2022 Do You Use Insect Repellent Routinely? No MIGRATION.197534 2118 Information not available 09/15/2022 Do You Have A Medical Power Of Membership Correspondent? No MIGRATION.788690 1122 Information not available 09/15/2022 What Is Your Relationship Status? MIGRATION.716879 8327 Information not available 09/15/2022 Do You Use Your Seat Belt Or Car Seat Routinely? Yes MIGRATION.250739 1071 Information not available 09/15/2022 Do You Have Smoke And Carbon Monoxide Detectors In Your Home? Yes MIGRATION.001992 8084 Information not available 09/15/2022 At What Age Did You Start Smoking Tobacco? 1 MIGRATION.057385 0489 Information not available 09/15/2022 How Much Tobacco Do You Smoke? No MIGRATION.250505 4702 Information not available 09/15/2022 Do You Use Sunscreen Routinely? Yes MIGRATION.169674 2320 Information not available 09/15/2022 Have You Recently Traveled Abroad? No MIGRATION.125405 2336 Information not available 09/15/2022 Do You Have Difficulty Walking Or Climbing Stairs? No MIGRATION.693692 3057 Information not available 09/15/2022 Do You Have Any Dietary Restrictions? No MIGRATION.064324 0146 Information not available 09/15/2022 Sex: Unknown Functional Status Question Answer Note LastModified by Organizat ion Details LastModified Time Do you use any illicit or recreational drugs? Yes MIGRATION.970893 6981 Information not available 09/15/2022 Do you or have you ever used any other forms of tobacco or nicotine? No MIGRATION.083814 0822 Information not available 09/15/2022 What is your level of alcohol consumption? None MIGRATION.453754 6163 Information not available 09/15/2022 Do you or have you ever used smokeless tobacco? Never used smokeless tobacco MIGRATION.980887 7173 Information not available 09/15/2022 Do you have transportation difficulties? No MIGRATION.601012 4776 Information not available 09/15/2022 Do you have difficulty doing errands alone? No MIGRATION.880665 8175 Information not available 09/15/2022 Are you able to care for yourself? Yes MIGRATION.261465 8254 Information not available 09/15/2022 Do you have difficulty dressing or bathing? No MIGRATION.427598 8496 Information not available 09/15/2022 Do you or have you ever used e-cigarettes or vape? Never used electronic cigarettes MIGRATION.341962 3052 Information not available 09/15/2022 What is your exercise level? Occasional MIGRATION.141037 4828 Information not available 09/15/2022 Mental Status Question Answer Note LastModified by Organizat ion Details LastModified Time Do you have difficulty concentrating, remembering or making decisions? No MIGRATION.[id number] 6 Information not available 09/15/2022 Family History Relationship Description Onset Age of this Age Resolved Age Notes LastModified by Organization Details LastModified Time Mother Congestive heart failure MIGRATION.[id number] Not available 09/15/2022 04:42:02 Brother Mesothelioma (malignant, clinical disorder) MIGRATION.084 [id number] Not available 09/15/2022 04:42:02 Medical History Condition Response DIABETES, TYPE Y KIDNEY STONES Y BACK / NECK PROBLEMS Y HYPERTENSION Y HIGH CHOLESTEROL / HYPERLIPIDEMIA Y Immunizations Vaccine Type Date Status Note Provider Nam e and Address Organization Details Recorded Time SARS-COV-2 (COVID-19) vaccine, UNSPECIFIED 1 completed Not Available [facility] 09/15/2022 05:00:27 Influenza, high-dose, quadrivalent, PF 2 completed Not Available [facility] 09/15/2022 05:00:27 COVID-19, mRNA, LNP-S, PF, 100 mcg/0.5mL dose or 50 mcg/0.25mL dose 2 completed Not Available [facility] 09/15/2022 05:00:27 COVID-19, mRNA, LNP-S, PF, 100 mcg/0.5mL dose or 50 mcg/0.25mL dose 1 completed Not Available [facility] 09/15/2022 05:00:27 Pneumococcal conjugate PCV 13 completed Not Available [facility] 09/15/2022 05:00:27 Past Encounters Encounter ID Performer Location Encounter Start Date Encounter Closed Date Diagnosis/Indication Diagnosis SNOMED-CT Code Diagnosis ICD10 Code Diagnosis Note [id number] DEANNA Alvarez [facility] [address] [place] [address] 11/07/2020 00:00:00 11/09/2020 10:18:33 [id number] DEANNA Alvarez [facility] [address] [place] [address] 12/29/2020 00:00:00 01/14/2021 23:03:18 [id number] DEANNA Alvarez [facility] [address] [place] [address] 05/15/2021 00:00:00 05/15/2021 16:21:02 [id number] Jose Delgado MD [facility] [address] [place] [address] 11/13/2021 00:00:00 11/13/2021 17:31:24 [id number] DEANNA Alvraez [facility] [address] [place] [address] 2022 00:00:00 06/16/2022 18:11:51 [id number] DEANNA Alvarez [facility] [address] [place] [address] 11/30/2022 14:20:02 11/30/2022 15:16:54 Uncontrolled type 2 diabetes mellitus 397305302 E11.65 due for a1c. on insulin and metformin. Hyperlipidemia 54004398 E78.5 stable on statins and due for labs now and latera Benign ess ential hypertension 6569090 I10 stable on medication s Degenerati on of lumbar intervertebral disc 57936156 M51.36 stable. no acute changes. Long-term drug therapy 794862630 Z79.899 labs due in Now and in 2022 before next apt Screening for malignant neoplasm of prostate 404667018 Z12.5 PSA due in [id number] DEANNA Alvarez [facility] [address] [place] [address] 06/21/2023 14:18:17 06/21/2023 14:57:12 Uncontrolled type 2 diabetes mellitus 804831060 E11.65 8.9% a1c. diet has not been in line. Add mounjaro 2.5mg weekly therapy if insurance will authorize. Hyperlipidemia 55935796 E78.5 stable on rosuvastat in 20mg daily. Benign ess ential hypertension 0167507 I10 stable on lisinopril 40mg daily. Degenerati on of lumbar intervertebral disc 50394710 M51.36 stable. no acute changes. Long-term drug therapy 341244047 Z79.899 labs UTD. Long-term current use of insulin 537369634 Z79.4 on lantus solo star. adjust titration upward 2 units every few days until fasting is 120 or less Health Concerns Section Related Observation LastModified by Organization Detai ls LastModified Time None Recorded Concern Status LastModified by Organization Details LastModified Time None Recorded Advance Directives Directive N: Payers Insurance Date Sequence Insurance Name Policy Number Policy Myers Covered Member ID Myers Member ID Guarantor Name 09/22/2023 1 [facility] (MEDICARE REPLACEMENT/ ADVANTAGE - PPO) [id number] Michael Salinas [id number] Michael Salinas Notes Date Note Type Note [...] in exercise capacity; no snoring Not Available [employer] 05/15/2021 16:21:02 022 text/ht ml DiabetesReported bypatient.Duration:chronic [...] in exercise capacity; no snoring;fatigue Not Available [employer] 11/13/2021 17:31:24 022 text/ht ml DiabetesReported bypatient.Duration:chronic [...] in exercise capacity; no snoring;fatigue Not Available [facility] [employer] 06/16/2022 18:11:51 023 text/ht ml DiabetesReported bypatient.Duration:chronic [...] exercise capacity; no snoring;fatigue DEANNA Alvarez [address] [facility], [place] [address], [place], [address], [employer] 12/15/2022 23:49:32 023 text/ht ml DiabetesReported bypatient.Duration:chronic [...] exercise capacity; no snoring DEANNA Alvarez [address], [place] [address], [place], [address], [employer] 07/13/2023 12:35:56
--- OUTSIDE RECORDS SUMMARY | 2025-02-06 08:34 | XMS_ITS | Clinical Summary ---
Author Organization [facility] Address [facility] [place] [address] Care Team Providers Care Broodmare Foreman Name Role Phone Oksana Frausto Primary Care Provider [phone] Allergies Active Allergy Reactions Criticality Noted Date [...] before bedtime. Active Lancets (ONETOUCH DELICA PLUS [id number]) [facility] OneTouch Delica Plus Lancet 30 gauge TEST 3 TO 4 TIMES D Active Blood Glucose Monitoring Suppl (ONETOUCH PING METER REMOTE) Supplies [facility] OneTouch Ultra2 Meter USE TO TEST UTD [...] on file Legal Sex Male 9:45 AM CAREER REPRESENTATIVE Gender Identity Not on file Sexual Orientation Not on file Last Filed Vital Signs Vital Sign Reading Time Taken Comments Blood Pressure 163/90 06/21/2022 3:20 PM CAREER REPRESENTATIVE Pulse 75 06/21/2022 3:20 PM CAREER REPRESENTATIVE Temperature 36.6 C (97.8 F) 06/21/2022 2:44 PM CAREER REPRESENTATIVE Respiratory Rate 20 06/21/2022 3:20 PM CAREER REPRESENTATIVE Oxygen Saturation 96% 06/21/2022 3:20 PM CAREER REPRESENTATIVE Inhaled Oxygen Concentration - - Weight 97.7 kg (215 lb 6.4 oz) 06/21/2022 2:44 P M CAREER REPRESENTATIVE Height 165.1 cm (5' 5) 06/21/2022 2:44 PM CAREER REPRESENTATIVE Body Mass Index 35.84 06/21/2022 2:44 PM CAREER REPRESENTATIVE Plan of Treatment Health Maintenance Due Date Last Done Comments Colorectal Cancer Screening Colonoscopy (10 Years) 1955 Hepatitis C 1973 DTaP, Tdap and Td Vaccines (1 - Tdap) 1974 Zoster Vaccines (1 of 2) 2005 Annual Medicare Wellness Visit 2020 Pneumococcal Vaccine: 50+ Years (2 of 2 - PPSV23) 11/07/2021 11/07/2020 COVID-19 Vaccine ( season) 2024 [...] patient's age to complete this topic Insurance [facility] Care Teams Broodmare Foreman Relationship Specialty Start Date End Date Oksana Frausto PA PCP - General PHYSICIAN DIRECTOR PATIENT ACCOUNTING 12/07/21
--- OUTSIDE RECORDS SUMMARY | 2025-02-06 08:34 | XMS_ITS | Data Portability ---
Author Organization [facility] Address [address] [place] [address] Care Team Providers Care Electrical Contacts Adjuster Name Role Phone ANTONIO DIXON Primary Care [...] to confirm date. Not available 05/31/2024 11:30:18 11/30/2024 11/30/2024 Colonoscopy completed October 24 2024 shows single 3 mm sessile polyp in the ascending colon multiple diverticula and internal hemorrhoids recheck 7 years. Not available 12/16/2024 11:19:06 Plan of Treatment Reminders Order Date Submit Date Provider Last Modified By Organization Details Last Modified Time Details Appointments ANY 15 2024 10:00A M DEANNA Alvarez Not available Not available Not available Lab HbA1c (hemoglob in A1c), blood 2024 025 [facility], [address] [address], [place], [address], 11/30/2024 11:17:45 CBC w/ auto diff 2024 025 [facility], [address], [place], [address], 11/30/2024 11:17:45 BMP, serum or plasma 2024 025 [facility], [address], [place], [address], 11/30/2024 11:17:45 hepatic function panel, serum 2024 025 [facility], [address], [place], [address], 11/30/2024 11:17:45 lipid panel, serum 2024 [facility], [address], [place], [address], 11/30/2024 11:17:45 PSA, total, serum or plasma 2023 025 [facility], [address], [place], [address], 11/16/2024 07:13:48 HbA1c (hemoglob in A1c), blood 2023 025 [facility], [address], [place], [address], 11/16/2024 07:13:45 microalbu min, urine 2023 025 [facility], [address], [place], [address], 11/16/2024 07:13:40 CBC w/ auto diff 2023 025 [facility], [address], [place], [address], 11/16/2024 07:13:46 BMP, serum or plasma 2023 025 [facility], [address], [place], [address], 11/16/2024 07:13:44 hepatic function panel, serum 2023 025 [facility], [address], [place], [address], 11/16/2024 07:13:43 TSH + free T4, serum 2023 025 [facility], [address], [place], [address], 11/16/2024 07:13:41 lipid panel, serum 2023 025 [facility], [address], [place], [address], 11/16/2024 07:13:42 HbA1c (hemoglob in A1c), blood 2023 024 [facility], [address], [place], [address], 05/17/2024 04:36:36 CBC w/ auto diff 2023 024 [facility], [address], [place], [address], 05/17/2024 04:36:37 BMP, serum or plasma 2023 024 [facility], [address], [place], [address], 05/17/2024 04:36:35 hepatic function panel, serum 2023 024 [facility], [address], [place], [address], 05/17/2024 04:36:34 TSH + free T4, serum 2023 024 [facility], [address], [place], [address], 05/17/2024 04:36:33 lipid panel, serum 2023 024 [facility], [address], [place], [address], 05/17/2024 04:36:32 HbA1c (hemoglob in A1c), blood 2023 024 [facility], [address], [place], [address], 10/15/2023 03:38:26 CBC w/ auto diff 2023 024 [facility], [address], [place], [address], 10/15/2023 03:38:26 BMP, serum or plasma 2023 024 [facility], [address], [place], [address], 10/15/2023 03:38:25 hepatic function panel, serum 2023 024 [facility], [address], [place], [address], 10/15/2023 03:38:24 lipid panel, serum 2023 024 [facility], [address], [place], [address], 10/15/2023 03:38:24 Referral None recorded. Procedures None recorded. Surgeries None recorded. Imaging None recorded. Medication Orders Ozempic 1 mg/dose (4 mg/3 mL) subcutane ous pen injector 2023 024 [id number], [address], [place], [place], [id number], 05/31/2024 11:45:57 Mounjaro 5 mg/0.5 mL subcutane ous pen injector 2023 024 [id number], [address], [place], [place], [id number], 11/29/2023 19:15:24 Patient TargetsNo targets recorded. Patient Instructions Encounter Date Encounter Id Patient Instructions Last Modified By Organization Details Last Modified Time 01/27/2024 [id number] A healthy lifestyle: care instructions Not available 01/27/2024 11:29:10 05/31/2024 [id number] A healthy lifestyle: care instructions Not available 05/31/2024 11:45:50 06/21/2024 [id number] Medicare [facility] Preventive Checklist Not available 06/21/2024 16:21:47 11/30/2024 [id number] A healthy lifestyle: care instructions Not available 11/30/2024 11:17:45 Reason for Referral None Reported. Results Created Date Observation Date Name Description Value Unit Range Abnormal Flag Note LastModifiedBy Organization Detail LastModifiedTime 10/14/1910/15/2023 LIPID PANEL cholesterol, total 120 mg/dL 100-19 9 Not Available [facility] ([facility]) [address] [facility], [place], [address], 10/15/2023 03:38:24 10/14/19 24 10/15/2023 LIPID PANEL triglyceride s 143 mg/dL 0-149 Not Available [facility] ([facility]) [address] [facility], [place], [address], 10/15/2023 03:38:24 10/14/19 24 10/15/2023 LIPID PANEL HDL cholesterol 37 mg/dL >39 below low normal Not Available [facility] ([facility]) [address] [facility], [place], [address], 10/15/2023 03:38:24 10/14/19 24 10/15/2023 LIPID PANEL VLDL cholesterol fanny 25 mg/dL 5-40 Not Available [facility] ([facility]) [address] [place], [address], 10/15/2023 03:38:24 10/14/19 24 10/15/2023 LIPID PANEL LDL chol calc ([facility]) 58 mg/dL 0-99 Not Available [facility] ([facility]) [address] [place], [address], 10/15/2023 03:38:24 10/14/19 24 10/15/2023 HEPAT IC FUNCT ION PANEL (7) protein, total 6.8 g/dL 6.0-8. 5 Not Available [facility] ([facility]) [address] [place], [address], 10/15/2023 03:38:24 10/14/19 24 10/15/2023 HEPAT IC FUNCT ION PANEL (7) albumin 4.3 g/dL 3.9-4. 9 Not Available [facility] ([facility]) [address] [place], [address], 10/15/2023 03:38:24 10/14/19 24 10/15/2023 HEPAT IC FUNCT ION PANEL (7) bilirubin, total 0.3 mg/dL 0.0-1. 2 Not Available [facility] ([facility]) [address] [place], [address], 10/15/2023 03:38:24 10/14/19 24 10/15/2023 HEPAT IC FUNCT ION PANEL (7) bilirubin, direct 0.12 mg/dL 0.00-0 .40 Not Available [facility] ([facility]) [address] [place], [address], 10/15/2023 03:38:24 10/14/19 24 10/15/2023 HEPAT IC FUNCT ION PANEL (7) alkaline phosphatase 55 IU/L 44-121 Not Available [facility] ([facility]) [address] [facility] [place], [address], 10/15/2023 03:38:24 10/14/19 24 10/15/2023 HEPAT IC FUNCT ION PANEL (7) AST (SGOT) 24 IU/L 0-40 Not Available [facility] ([facility]) [address] [facility] [place], [address], 10/15/2023 03:38:24 10/14/19 24 10/15/2023 HEPAT IC FUNCT ION PANEL (7) ALT (SGPT) 29 IU/L 0-44 Not Available [facility] ([facility]) [address] [facility] [place], [address], 10/15/2023 03:38:24 10/14/19 24 10/15/2023 BMP7+ EGFR glucose 102 mg/dL 70-99 above high normal Not Available [facility] ([facility]) [address] [facility] [place], [address], 10/15/2023 03:38:25 10/14/19 24 10/15/2023 BMP7+ EGFR BUN 19 mg/dL 8-27 Not Available [facility] ([facility]) [address] [facility] [place], [address], 10/15/2023 03:38:25 10/14/19 24 10/15/2023 BMP7+ EGFR creatinine 1.11 mg/dL 0.76-1 .27 Not Available [facility] ([facility]) [address] [facility] [place], [address], 10/15/2023 03:38:25 10/14/19 24 10/15/2023 BMP7+ EGFR eGFR 72 mL/mi n/1.7 3 >59 Not Available [facility] ([facility]) [address] [facility] [place], [address], 10/15/2023 03:38:25 10/14/19 24 10/15/2023 BMP7+ EGFR sodium 138 mmol/ L 134-14 4 Not Available [facility] ([facility]) [address] [facility], [place], [address], 10/15/2023 03:38:25 10/14/19 24 10/15/2023 BMP7+ EGFR potassium 4.3 mmol/ L 3.5-5. 2 Not Available [facility] ([facility]) [address] [facility], [place], [address], 10/15/2023 03:38:25 10/14/19 24 10/15/2023 BMP7+ EGFR chloride 101 mmol/ L 96-106 Not Available [facility] ([facility]) [address] [facility], [place], [address], 10/15/2023 03:38:25 10/14/19 24 10/15/2023 BMP7+ EGFR carbon dioxide, total 25 mmol/ L 20-29 Not Available [facility] ([facility]) [address] [place], [address], 10/15/2023 03:38:25 10/14/19 24 10/15/2023 HEMOG LOBIN A1C hemoglobin A1C 6.5 % 4.8-5. 6 above high normal Predi abete s: 5.7 - 6.4 Diabe bernie: >6.4 Glyce mabel contr ol for adult s with diabe bernie: <7.0 Not Available [facility] ([facility]) [address] [facility], [place], [address], 10/15/2023 03:38:25 10/14/19 24 10/15/2023 CBC WITH DIFFE RENTI AL/PL ATELE T WBC 10.2 x10e3 /uL 3.4-10 .8 Not Available [facility] ([facility]) [address] [facility], [place], [address], 10/15/2023 03:38:26 10/14/19 24 10/15/2023 CBC WITH DIFFE RENTI AL/PL ATELE T RBC 5.12 x10e6 /uL 4.14-5 .80 Not Available [facility] ([facility]) [address] [facility], [place], [address], 10/15/2023 03:38:26 10/14/19 24 10/15/2023 CBC WITH DIFFE RENTI AL/PL ATELE T hemoglobin 15.1 g/dL 13.0-1 7.7 Not Available [facility] ([facility]) [address] [place], [address], 10/15/2023 03:38:26 10/14/19 24 10/15/2023 CBC WITH DIFFE RENTI AL/PL ATELE T hematocrit 46.0 % 37.5-5 1.0 Not Available [facility] ([facility]) [address] [place], [address], 10/15/2023 03:38:26 10/14/19 24 10/15/2023 CBC WITH DIFFE RENTI AL/PL ATELE T MCV 90 fL 79-97 Not Available [facility] ([facility]) [address] [place], [address], 10/15/2023 03:38:26 10/14/19 24 10/15/2023 CBC WITH DIFFE RENTI AL/PL ATELE T MCH 29.5 pg 26.6-3 3.0 Not Available [facility] ([facility]) [address] [place], [address], 10/15/2023 03:38:26 10/14/19 24 10/15/2023 CBC WITH DIFFE RENTI AL/PL ATELE T MCHC 32.8 g/dL 31.5-3 5.7 Not Available [facility] ([facility]) [address] [place], [address], 10/15/2023 03:38:26 10/14/19 24 10/15/2023 CBC WITH DIFFE RENTI AL/PL ATELE T RDW 12.8 % 11.6-1 5.4 Not Available [facility] ([facility]) [address] [facility], [place], [address], 10/15/2023 03:38:26 10/14/19 24 10/15/2023 CBC WITH DIFFE RENTI AL/PL ATELE T platelets 240 x10e3 /uL 150-45 0 Not Available [facility] ([facility]) [address] [facility], [place], [address], 10/15/2023 03:38:26 10/14/19 24 10/15/2023 CBC WITH DIFFE RENTI AL/PL ATELE T neutrophils 55 % notest ab. Not Available [facility] ([facility]) [address] [facility], [place], [address], 10/15/2023 03:38:26 10/14/19 24 10/15/2023 CBC WITH DIFFE RENTI AL/PL ATELE T lymphs 25 % notest ab. Not Available [facility] ([facility]) [address] [facility], [place], [address], 10/15/2023 03:38:26 10/14/19 24 10/15/2023 CBC WITH DIFFE RENTI AL/PL ATELE T monocytes 7 % notest ab. Not Available [facility] ([facility]) [address] [facility], [place], [address], 10/15/2023 03:38:26 10/14/19 24 10/15/2023 CBC WITH DIFFE RENTI AL/PL ATELE T eos 12 % notest ab. Not Available [facility] ([facility]) [address] [facility], [place], [address], 10/15/2023 03:38:26 10/14/19 24 10/15/2023 CBC WITH DIFFE RENTI AL/PL ATELE T basos 1 % notest ab. Not Available [facility] ([facility]) [address] [facility], [place], [address], 10/15/2023 03:38:26 10/14/19 24 10/15/2023 CBC WITH DIFFE RENTI AL/PL ATELE T neutrophils (absolute) 5.7 x10e3 /uL 1.4-7. 0 Not Available [facility] ([facility]) [address] [facility], [place], [address], 10/15/2023 03:38:26 10/14/19 24 10/15/2023 CBC WITH DIFFE RENTI AL/PL ATELE T lymphs (absolute) 2.6 x10e3 /uL 0.7-3. 1 Not Available [facility] ([facility]) [address] [facility], [place], [address], 10/15/2023 03:38:26 10/14/19 24 10/15/2023 CBC WITH DIFFE RENTI AL/PL ATELE T monocytes(ab solute) 0.7 x10e3 /uL 0.1-0. 9 Not Available [facility] ([facility]) [address] [facility], [place], [address], 10/15/2023 03:38:26 10/14/19 24 10/15/2023 CBC WITH DIFFE RENTI AL/PL ATELE T eos (absolute) 1.2 x10e3 /uL 0.0-0. 4 above high normal Not Available [facility] ([facility]) [address] [facility], [place], [address], 10/15/2023 03:38:26 10/14/19 24 10/15/2023 CBC WITH DIFFE RENTI AL/PL ATELE T baso (absolute) 0.1 x10e3 /uL 0.0-0. 2 Not Available [facility] ([facility]) [address] [facility], [place], [address], 10/15/2023 03:38:26 10/14/19 24 10/15/2023 CBC WITH DIFFE RENTI AL/PL ATELE T immature granulocytes 0 % notest ab. Not Available [facility] ([facility]) [address] [facility], [place], [address], 10/15/2023 03:38:26 10/14/19 24 10/15/2023 CBC WITH DIFFE RENTI AL/PL ATELE T immature grans (abs) 0.0 x10e3 /uL 0.0-0. 1 Not Available [facility] ([facility]) [address] [facility], [place], [address], 10/15/2023 03:38:26 05/16/20 24 05/17/2024 LIPID PANEL W/ CHOL/ HDL RATIO cholesterol, total 131 mg/dL 100-19 9 Not Available [facility] ([facility]) [address] [facility], [place], [address], 05/17/2024 04:36:32 05/16/20 24 05/17/2024 LIPID PANEL W/ CHOL/ HDL RATIO triglyceride s 112 mg/dL 0-149 Not Available [facility] ([facility]) [address] [place], [address], 05/17/2024 04:36:32 05/16/20 24 05/17/2024 LIPID PANEL W/ CHOL/ HDL RATIO HDL cholesterol 42 mg/dL >39 Not Available [facility] ([facility]) [address] [place], [address], 05/17/2024 04:36:32 05/16/20 24 05/17/2024 LIPID PANEL W/ CHOL/ HDL RATIO VLDL cholesterol fanny 20 mg/dL 5-40 Not Available [facility] ([facility]) [address] [place], [address], 05/17/2024 04:36:32 05/16/20 24 05/17/2024 LIPID PANEL W/ CHOL/ HDL RATIO LDL chol calc ([facility]) 69 mg/dL 0-99 Not Available [facility] ([facility]) [address] [place], [address], 05/17/2024 04:36:32 05/16/20 24 05/17/2024 LIPID PANEL W/ CHOL/ HDL RATIO T. chol/HDL ratio 3.1 ratio 0.0-5. 0 T. Chol/ HDL Ratio Men Women 1/2 Avg.R isk 3.4 3.3 Avg.R isk 5.0 4.4 2X Avg.R isk 9.6 7.1 3X Avg.R isk 23.4 11.0 Not Available [facility] ([facility]) [address] [place], [address], 05/17/2024 04:36:32 05/16/20 24 05/17/2024 TSH+F REE T4 TSH 1.320 uIU/m L 0.450- 4.500 Not Available [facility] ([facility]) [address] [place], [address], 05/17/2024 04:36:33 05/16/20 24 05/17/2024 TSH+F REE T4 T4,free(dire ct) 1.25 NG/dL 0.82-1 .77 Not Available [facility] ([facility]) [address] [place], [address], 05/17/2024 04:36:33 05/16/20 24 05/17/2024 HEPAT IC FUNCT ION PANEL (7) protein, total 7.1 g/dL 6.0-8. 5 Not Available [facility] ([facility]) [address] [place], [address], 05/17/2024 04:36:34 05/16/20 24 05/17/2024 HEPAT IC FUNCT ION PANEL (7) albumin 4.4 g/dL 3.9-4. 9 Not Available [facility] ([facility]) [address] [facility], [address], 05/17/2024 04:36:34 05/16/20 24 05/17/2024 HEPAT IC FUNCT ION PANEL (7) bilirubin, total 0.4 mg/dL 0.0-1. 2 Not Available [facility] ([facility]) [address] [facility] [place], [address], 05/17/2024 04:36:34 05/16/2005/17/2024 HEPAT IC FUNCT ION PANEL (7) bilirubin, direct 0.15 mg/dL 0.00-0 .40 Not Available [facility] ([facility]) [address] [facility] [place], [address], 05/17/2024 04:36:34 05/16/20 24 05/17/2024 HEPAT IC FUNCT ION PANEL (7) alkaline phosphatase 58 IU/L 44-121 Not Available [facility] ([facility]) [address] [facility], [place], [address], 05/17/2024 04:36:34 05/16/20 24 05/17/2024 HEPAT IC FUNCT ION PANEL (7) AST (SGOT) 24 IU/L 0-40 Not Available [facility] ([facility]) [address] [facility] [place], [address], 05/17/2024 04:36:34 05/16/20 24 05/17/2024 HEPAT IC FUNCT ION PANEL (7) ALT (SGPT) 31 IU/L 0-44 Not Available [facility] ([facility]) [address] [facility] [place], [address], 05/17/2024 04:36:34 05/16/20 24 05/17/2024 BMP7+ EGFR glucose 116 mg/dL 70-99 above high normal Not Available [facility] ([facility]) [address] [facility] [place], [address], 05/17/2024 04:36:35 05/16/20 24 05/17/2024 BMP7+ EGFR BUN 22 mg/dL 8-27 Not Available [facility] ([facility]) [address] [facility], [place], [address], 05/17/2024 04:36:35 05/16/20 24 05/17/2024 BMP7+ EGFR creatinine 1.04 mg/dL 0.76-1 .27 Not Available [facility] ([facility]) [address] [facility], [place], [address], 05/17/2024 04:36:35 05/16/2005/17/2024 BMP7+ EGFR eGFR 78 mL/mi n/1.7 3 >59 Not Available [facility] ([facility]) [address] [facility], [place], [address], 05/17/2024 04:36:35 05/16/2005/17/2024 BMP7+ EGFR sodium 138 mmol/ L 134-14 4 Not Available [facility] ([facility]) [address] [facility], [place], [address], 05/17/2024 04:36:35 05/16/20 24 05/17/2024 BMP7+ EGFR potassium 4.5 mmol/ L 3.5-5. 2 Not Available [facility] ([facility]) [address] [facility], [place], [address], 05/17/2024 04:36:35 05/16/2005/17/2024 BMP7+ EGFR chloride 99 mmol/ L 96-106 Not Available [facility] ([facility]) [address] [facility], [place], [address], 05/17/2024 04:36:35 05/16/2005/17/2024 BMP7+ EGFR carbon dioxide, total 25 mmol/ L 20-29 Not Available [facility] ([facility]) [address] [facility], [place], [address], 05/17/2024 04:36:35 05/16/20 24 05/17/2024 HEMOG LOBIN A1C hemoglobin A1C 6.4 % 4.8-5. 6 above high normal Predi abete s: 5.7 - 6.4 Diabe bernie: >6.4 Glyce mabel contr ol for adult s with diabe bernie: <7.0 Not Available [facility] ([facility]) [address] [facility], [place], [address], 05/17/2024 04:36:36 05/16/20 24 05/16/2024 CBC WITH DIFFE RENTI AL/PL ATELE T WBC 8.4 x10e3 /uL 3.4-10 .8 Not Available [facility] ([facility]) [address] [facility], [place], [address], 05/17/2024 04:36:37 05/16/20 24 05/16/2024 CBC WITH DIFFE RENTI AL/PL ATELE T RBC 5.15 x10e6 /uL 4.14-5 .80 Not Available [facility] ([facility]) [address] [facility], [place], [address], 05/17/2024 04:36:37 05/16/20 24 05/16/2024 CBC WITH DIFFE RENTI AL/PL ATELE T hemoglobin 15.3 g/dL 13.0-1 7.7 Not Available [facility] ([facility]) [address] [facility], [place], [address], 05/17/2024 04:36:37 05/16/20 24 05/16/2024 CBC WITH DIFFE RENTI AL/PL ATELE T hematocrit 46.7 % 37.5-5 1.0 Not Available [facility] ([facility]) [address] [place], [address], 05/17/2024 04:36:37 05/16/20 24 05/16/2024 CBC WITH DIFFE RENTI AL/PL ATELE T MCV 91 fL 79-97 Not Available [facility] ([facility]) [address] [facility], [place], [address], 05/17/2024 04:36:37 05/16/20 24 05/16/2024 CBC WITH DIFFE RENTI AL/PL ATELE T MCH 29.7 pg 26.6-3 3.0 Not Available [facility] ([facility]) [address] [facility], [place], [address], 05/17/2024 04:36:37 05/16/20 24 05/16/2024 CBC WITH DIFFE RENTI AL/PL ATELE T MCHC 32.8 g/dL 31.5-3 5.7 Not Available [facility] ([facility]) [address] [facility], [place], [address], 05/17/2024 04:36:37 05/16/20 24 05/16/2024 CBC WITH DIFFE RENTI AL/PL ATELE T RDW 12.7 % 11.6-1 5.4 Not Available [facility] ([facility]) [address] [facility], [place], [address], 05/17/2024 04:36:37 05/16/20 24 05/16/2024 CBC WITH DIFFE RENTI AL/PL ATELE T platelets 239 x10e3 /uL 150-45 0 Not Available [facility] ([facility]) [address] [facility], [place], [address], 05/17/2024 04:36:37 05/16/20 24 05/16/2024 CBC WITH DIFFE RENTI AL/PL ATELE T neutrophils 58 % notest ab. Not Available [facility] ([facility]) [address] [facility], [place], [address], 05/17/2024 04:36:37 05/16/20 24 05/16/2024 CBC WITH DIFFE RENTI AL/PL ATELE T lymphs 23 % notest ab. Not Available [facility] ([facility]) [address] [facility], [place], [address], 05/17/2024 04:36:37 05/16/20 24 05/16/2024 CBC WITH DIFFE RENTI AL/PL ATELE T monocytes 7 % notest ab. Not Available [facility] ([facility]) [address] [facility], [place], [address], 05/17/2024 04:36:37 05/16/20 24 05/16/2024 CBC WITH DIFFE RENTI AL/PL ATELE T eos 11 % notest ab. Not Available [facility] ([facility]) [address] [facility], [place], [address], 05/17/2024 04:36:37 05/16/20 24 05/16/2024 CBC WITH DIFFE RENTI AL/PL ATELE T basos 1 % notest ab. Not Available [facility] ([facility]) [address] [facility], [place], [address], 05/17/2024 04:36:37 05/16/20 24 05/16/2024 CBC WITH DIFFE RENTI AL/PL ATELE T neutrophils (absolute) 4.8 x10e3 /uL 1.4-7. 0 Not Available [facility] ([facility]) [address] [facility], [place], [address], 05/17/2024 04:36:37 05/16/20 24 05/16/2024 CBC WITH DIFFE RENTI AL/PL ATELE T lymphs (absolute) 2.0 x10e3 /uL 0.7-3. 1 Not Available [facility] ([facility]) [address] [facility], [place], [address], 05/17/2024 04:36:37 05/16/20 24 05/16/2024 CBC WITH DIFFE RENTI AL/PL ATELE T monocytes(ab solute) 0.6 x10e3 /uL 0.1-0. 9 Not Available [facility] ([facility]) [address] [facility], [place], [address], 05/17/2024 04:36:37 05/16/20 24 05/16/2024 CBC WITH DIFFE RENTI AL/PL ATELE T eos (absolute) 0.9 x10e3 /uL 0.0-0. 4 above high normal Not Available [facility] ([facility]) [address] [facility], [place], [address], 05/17/2024 04:36:37 05/16/20 24 05/16/2024 CBC WITH DIFFE RENTI AL/PL ATELE T baso (absolute) 0.0 x10e3 /uL 0.0-0. 2 Not Available [facility] ([facility]) [address] [facility], [place], [address], 05/17/2024 04:36:37 05/16/20 24 05/16/2024 CBC WITH DIFFE RENTI AL/PL ATELE T immature granulocytes 0 % notest ab. Not Available [facility] ([facility]) [address] [facility], [place], [address], 05/17/2024 04:36:37 05/16/20 24 05/16/2024 CBC WITH DIFFE RENTI AL/PL ATELE T immature grans (abs) 0.0 x10e3 /uL 0.0-0. 1 Not Available [facility] ([facility]) [address] [facility], [place], [address], 05/17/2024 04:36:37 11/16/19 25 11/16/2024 ALBUM IN, RANDO M URINE albumin, urine 10.3 ug/mL notest ab. Not Available [facility] ([facility]) [address] [facility], [place], [address], 11/16/2024 07:13:40 11/16/19 25 11/16/2024 TSH+F REE T4 TSH 1.210 uIU/m L 0.450- 4.500 Not Available [facility] ([facility]) [address] [place], [address], 11/16/2024 07:13:41 11/16/19 25 11/16/2024 TSH+F REE T4 T4,free(dire ct) 1.22 NG/dL 0.82-1 .77 Not Available [facility] ([facility]) [address] [place], [address], 11/16/2024 07:13:41 11/16/19 25 11/16/2024 LIPID PANEL WITH LDL/H DL RATIO cholesterol, total 115 mg/dL 100-19 9 Not Available [facility] ([facility]) [address] [place], [address], 11/16/2024 07:13:42 11/16/19 25 11/16/2024 LIPID PANEL WITH LDL/H DL RATIO triglyceride s 116 mg/dL 0-149 Not Available [facility] ([facility]) [address] [place], [address], 11/16/2024 07:13:42 11/16/19 25 11/16/2024 LIPID PANEL WITH LDL/H DL RATIO HDL cholesterol 37 mg/dL >39 below low normal Not Available [facility] ([facility]) [address] [place], [address], 11/16/2024 07:13:42 11/16/19 25 11/16/2024 LIPID PANEL WITH LDL/H DL RATIO VLDL cholesterol fanny 21 mg/dL 5-40 Not Available [facility] ([facility]) [address] [place], [address], 11/16/2024 07:13:42 11/16/19 25 11/16/2024 LIPID PANEL WITH LDL/H DL RATIO LDL chol calc ([facility]) 57 mg/dL 0-99 Not Available [facility] ([facility]) [address] [place], [address], 11/16/2024 07:13:42 11/16/19 25 11/16/2024 LIPID PANEL WITH LDL/H DL RATIO LDL/HDL ratio 1.5 ratio 0.0-3. 6 LDL/H DL Ratio Men Women 1/2 Avg.R isk 1.0 1.5 Avg.R isk 3.6 3.2 2X Avg.R isk 6.2 5.0 3X Avg.R isk 8.0 6.1 Not Available [facility] ([facility]) [address] [place], [address], 11/16/2024 07:13:42 11/16/1911/16/2024 HEPAT IC FUNCT ION PANEL (7) protein, total 7.0 g/dL 6.0-8. 5 Not Available [facility] ([facility]) [address] [place], [address], 11/16/2024 07:13:43 11/16/19 25 11/16/2024 HEPAT IC FUNCT ION PANEL (7) albumin 4.3 g/dL 3.9-4. 9 Not Available [facility] ([facility]) [address] [place], [address], 11/16/2024 07:13:43 11/16/19 25 11/16/2024 HEPAT IC FUNCT ION PANEL (7) bilirubin, total 0.6 mg/dL 0.0-1. 2 Not Available [facility] ([facility]) [address] [place], [address], 11/16/2024 07:13:43 11/16/19 25 11/16/2024 HEPAT IC FUNCT ION PANEL (7) bilirubin, direct 0.19 mg/dL 0.00-0 .40 Not Available [facility] ([facility]) [address] [place], [address], 11/16/2024 07:13:43 11/16/19 25 11/16/2024 HEPAT IC FUNCT ION PANEL (7) alkaline phosphatase 58 IU/L 44-121 Not Available [facility] ([facility]) [address] [place], [address], 11/16/2024 07:13:43 11/16/19 25 11/16/2024 HEPAT IC FUNCT ION PANEL (7) AST (SGOT) 25 IU/L 0-40 Not Available [facility] ([facility]) [address] [place], [address], 11/16/2024 07:13:43 11/16/19 25 11/16/2024 HEPAT IC FUNCT ION PANEL (7) ALT (SGPT) 31 IU/L 0-44 Not Available [facility] ([facility]) [address] [place], [address], 11/16/2024 07:13:43 11/16/19 25 11/16/2024 BASIC METAB OLIC PANEL (8) glucose 72 mg/dL 70-99 Not Available [facility] ([facility]) [address] [place], [address], 11/16/2024 07:13:44 11/16/19 25 11/16/2024 BASIC METAB OLIC PANEL (8) BUN 25 mg/dL 8-27 Not Available [facility] ([facility]) [address] [place], [address], 11/16/2024 07:13:44 11/16/19 25 11/16/2024 BASIC METAB OLIC PANEL (8) creatinine 1.17 mg/dL 0.76-1 .27 Not Available [facility] ([facility]) [address] [place], [address], 11/16/2024 07:13:44 11/16/19 25 11/16/2024 BASIC METAB OLIC PANEL (8) eGFR 67 mL/mi n/1.7 3 >59 Not Available [facility] ([facility]) [address] [facility] [place], [address], 11/16/2024 07:13:44 11/16/19 25 11/16/2024 BASIC METAB OLIC PANEL (8) BUN/creatini ne ratio 21 10-24 Not Available [facility] ([facility]) [address] [facility] [place], [address], 11/16/2024 07:13:44 11/16/19 25 11/16/2024 BASIC METAB OLIC PANEL (8) sodium 139 mmol/ L 134-14 4 Not Available [facility] ([facility]) [address] [facility] [place], [address], 11/16/2024 07:13:44 11/16/19 25 11/16/2024 BASIC METAB OLIC PANEL (8) potassium 4.3 mmol/ L 3.5-5. 2 Not Available [facility] ([facility]) [address] [place], [address], 11/16/2024 07:13:44 11/16/19 25 11/16/2024 BASIC METAB OLIC PANEL (8) chloride 99 mmol/ L 96-106 Not Available [facility] ([facility]) [address] [place], [address], 11/16/2024 07:13:44 11/16/19 25 11/16/2024 BASIC METAB OLIC PANEL (8) carbon dioxide, total 25 mmol/ L 20-29 Not Available [facility] ([facility]) [address] [place], [address], 11/16/2024 07:13:44 11/16/19 25 11/16/2024 BASIC METAB OLIC PANEL (8) calcium 10.0 mg/dL 8.6-10 .2 Not Available [facility] ([facility]) [address] [place], [address], 11/16/2024 07:13:44 11/16/19 25 11/16/2024 HEMOG LOBIN A1C hemoglobin A1C 6.3 % 4.8-5. 6 above high normal Predi abete s: 5.7 - 6.4 Diabe bernie: >6.4 Glyce mabel contr ol for adult s with diabe bernie: <7.0 Not Available [facility] ([facility]) [address] [place], [address], 11/16/2024 07:13:45 11/16/19 25 11/15/2024 CBC WITH DIFFE RENTI AL/PL ATELE T WBC 9.4 x10e3 /uL 3.4-10 .8 Not Available [facility] ([facility]) [address] [place], [address], 11/16/2024 07:13:46 11/16/19 25 11/15/2024 CBC WITH DIFFE RENTI AL/PL ATELE T RBC 5.20 x10e6 /uL 4.14-5 .80 Not Available [facility] ([facility]) [address] [place], [address], 11/16/2024 07:13:46 11/16/19 25 11/15/2024 CBC WITH DIFFE RENTI AL/PL ATELE T hemoglobin 15.4 g/dL 13.0-1 7.7 Not Available [facility] ([facility]) [address] [place], [address], 11/16/2024 07:13:46 11/16/19 25 11/15/2024 CBC WITH DIFFE RENTI AL/PL ATELE T hematocrit 48.0 % 37.5-5 1.0 Not Available [facility] ([facility]) [address] [place], [address], 11/16/2024 07:13:46 11/16/19 25 11/15/2024 CBC WITH DIFFE RENTI AL/PL ATELE T MCV 92 fL 79-97 Not Available [facility] ([facility]) [address] [place], [address], 11/16/2024 07:13:46 11/16/19 25 11/15/2024 CBC WITH DIFFE RENTI AL/PL ATELE T MCH 29.6 pg 26.6-3 3.0 Not Available [facility] ([facility]) [address] [facility], [place], [address], 11/16/2024 07:13:46 11/16/19 25 11/15/2024 CBC WITH DIFFE RENTI AL/PL ATELE T MCHC 32.1 g/dL 31.5-3 5.7 Not Available [facility] ([facility]) [address] [facility], [place], [address], 11/16/2024 07:13:46 11/16/19 25 11/15/2024 CBC WITH DIFFE RENTI AL/PL ATELE T RDW 12.9 % 11.6-1 5.4 Not Available [facility] ([facility]) [address] [facility], [place], [address], 11/16/2024 07:13:46 11/16/19 25 11/15/2024 CBC WITH DIFFE RENTI AL/PL ATELE T platelets 259 x10e3 /uL 150-45 0 Not Available [facility] ([facility]) [address] [place], [address], 11/16/2024 07:13:46 11/16/19 25 11/15/2024 CBC WITH DIFFE RENTI AL/PL ATELE T neutrophils 57 % notest ab. Not Available [facility] ([facility]) [address] [place], [address], 11/16/2024 07:13:46 11/16/19 25 11/15/2024 CBC WITH DIFFE RENTI AL/PL ATELE T lymphs 23 % notest ab. Not Available [facility] ([facility]) [address] [place], [address], 11/16/2024 07:13:46 11/16/19 25 11/15/2024 CBC WITH DIFFE RENTI AL/PL ATELE T monocytes 7 % notest ab. Not Available [facility] ([facility]) [address] [facility], [place], [address], 11/16/2024 07:13:46 11/16/19 25 11/15/2024 CBC WITH DIFFE RENTI AL/PL ATELE T eos 12 % notest ab. Not Available [facility] ([facility]) [address] [place], [address], 11/16/2024 07:13:46 11/16/19 25 11/15/2024 CBC WITH DIFFE RENTI AL/PL ATELE T basos 1 % notest ab. Not Available [facility] ([facility]) [address] [place], [address], 11/16/2024 07:13:46 11/16/19 25 11/15/2024 CBC WITH DIFFE RENTI AL/PL ATELE T neutrophils (absolute) 5.4 x10e3 /uL 1.4-7. 0 Not Available [facility] ([facility]) [address] [place], [address], 11/16/2024 07:13:46 11/16/19 25 11/15/2024 CBC WITH DIFFE RENTI AL/PL ATELE T lymphs (absolute) 2.2 x10e3 /uL 0.7-3. 1 Not Available [facility] ([facility]) [address] [place], [address], 11/16/2024 07:13:46 11/16/19 25 11/15/2024 CBC WITH DIFFE RENTI AL/PL ATELE T monocytes(ab solute) 0.7 x10e3 /uL 0.1-0. 9 Not Available [facility] ([facility]) [address] [place], [address], 11/16/2024 07:13:46 11/16/19 25 11/15/2024 CBC WITH DIFFE RENTI AL/PL ATELE T eos (absolute) 1.1 x10e3 /uL 0.0-0. 4 above high normal Not Available [facility] ([facility]) [address] [place], [address], 11/16/2024 07:13:46 11/16/19 25 11/15/2024 CBC WITH DIFFE RENTI AL/PL ATELE T baso (absolute) 0.1 x10e3 /uL 0.0-0. 2 Not Available [facility] ([facility]) [address] [place], [address], 11/16/2024 07:13:46 11/16/19 25 11/15/2024 CBC WITH DIFFE RENTI AL/PL ATELE T immature granulocytes 0 % notest ab. Not Available [facility] ([facility]) [address] [facility], [place], [address], 11/16/2024 07:13:46 11/16/1911/15/2024 CBC WITH DIFFE RENTI AL/PL ATELE T immature grans (abs) 0.0 x10e3 /uL 0.0-0. 1 Not Available [facility] ([facility]) [address] [place], [address], 11/16/2024 07:13:46 11/16/1911/16/2024 PROST ATE-S PECIF IC AG prostate specific Ag 1.6 NG/mL 0.0-4. 0 Mykel ECLIA metho dolog [...] kits canno t be used inter post eably . Resul ts canno t be inter prete d as absol pilar evide nce of the prese nce or absen ce of ilana rangel se. Not Available [facility] ([facility]) [address] [facility], [place], [address], 11/16/2024 07:13:48 Result Notes None recorded. Problems Name Problem SNOMED Code Status Onset Date Resolution Date Notes Provider Name and Address Organization Details Recorded Time Body mass index 30+ - obesity 085585899 Active 2023 DEANNA Alvarez Attn: Konstantin bonilla,[address] [place], [address], [place] [facility] 4 11:11:18 Obesity 885887646 Active 2023 DEANNA Alvarez Attn: Konstantin bonilla,[address] [place], [address], [place] [facility] 4 11:11:19 Long-term drug therapy Active 2023 DEANNA Alvarez Attn: Konstantin bonilla,[address] [place], [address], [place] [facility] 4 11:23:00 Long-term current use of insulin 109979504 Active 2023 DEANNA Alvarez Attn: Konstantin bonilla,[address] [place], [address], [place] [facility] 4 11:23:06 Degeneratio n of lumbar interverteb ral disc 09512699 Active 2023 DEANNA Alvarez Attn: Konstantin g,[address] [place], [address], [place] [facility] 4 11:23:08 Age related macular degeneratio n 686002144 Active 2023 DEANNA Alvarez Attn: Accountin g,[address] [facility], [place], [address], [place] [facility] 4 11:23:10 Chronic low back pain 402769666 Active 2023 DEANNA Alvarez Attn: Accountin g,[address] [facility], [place], [address], [place] [facility] 4 11:23:11 Hyperlipide sandee 43762299 Active 2023 DEANNA Alvarez Attn: Accountin g,[address] [facility], [place], [address], [place] [facility] 4 11:23:13 Benign essential hypertensio n 2920746 Active 2023 DEANNA Alvarez Attn: Accountin g,[address] [place], [address] [facility] 4 11:23:14 Uncontrolle d type 2 diabetes mellitus 211408693 Active 2023 DEANNA Alvarez Attn: Accountin g,[address] [facility], [place], [address], [place] [facility] 4 11:23:16 Obese class I 6726462496081 07 Active 2024 DEANNA Alvarez Attn: Accountin g,[address] [place], [address], [place] [facility] 5 11:15:39 Well controlled type 2 diabetes mellitus 807867640 Active 2024 DEANNA Alvarez Attn: Accountin g,[address] [facility], [place], [address], [place] [facility] 5 11:22:27 History of polyp of colon 730566569 Active 2024 DEANNA Alvarez Attn: Accountin g,[address] [facility], [place], [address], [place] [facility] 5 11:25:30 Problem Notes None recorded. Procedures Surgical History Date Name Laterality Status Provider Name and Address Organization Details Recorded Time Appendectomy completed Silverio De Jesus MA [facility] 09/16/2023 15:47:30 Hernia Repair completed Silverio De Jesus MA [facility] 09/16/2023 15:47:36 Imaging Results None recorded. Procedure Notes None recorded. Medical Equipment None Reported. Allergies Allergen ID Allergen Name Allergen Category Reaction Reaction Severity Criticality Documentation Date Start Date Code Code System Note Provider Name and Address Organization Details Recorded Time 928050 Substance with sulfonami de structure and antibacte rial mechanism of action (substanc e) medicatio n hives nausea Not available Not available low 09/16/2023 61978 8003 SNOMED Silverio De Jesus MA null, [facility] 4 15:46:45 Medications Name Sig Start Date Stop Date Status Note LastModified by Organization Details LastModified Time BD Ultra Fine Pen [place] Mini 5 mm X 31 gauge use [...] TAKE 1 TABLET BY MOUTH TWICE DAILY 2024 active Not Available Not Available Not Avai lable felodipine ER 10 mg tablet,exte nded release 24 hr TAKE 1 TABLET BY MOUTH DAILY active Not Available Not Available No t Available lisinopril 40 mg tablet TAKE 1 TABLET BY MOUTH TWICE DAILY active Not Available Not Available No t Available rosuvastati n 20 mg tablet TAKE 1 TABLET BY MOUTH DAILY 2024 active Not Available Not Available Not Avai lable BD Ultra-Fine Mini Pen Needle 31 gauge x 09/30 USE DIRECTED DAILY active Not Available Not Available No [...] (4 mg/3 mL) subcutaneou s pen injector INJECT 1MG UNDER THE SKIN EVERY WEEK 2024 active Not Available Not Available Not Avai lable Mounjaro 5 mg/0.5 mL subcutaneou s pen [...] in Arterial blood by Pulse oximetry Systolic And Diastolic Provider Name and Address Organization Details Last Updated DateTime 4 163.2 cm 38.1 kg/m2 735523. 69 g 65 /min 18 /min 99 % 99 % 114/65 mm[Hg] Silverio De Jesus MA [facility] 4 09:34:38 Date Recorded Systolic And Diastolic Provider Name and Address Organization Details Last Updated DateTime 11/30/2024 110/72 mm[Hg] DEANNA Alvarez Attn: Accounting,[address] [place], [address], [facility] 11/30/2024 11:31:57 Date Recorded Body height Body mass index (BMI) Body weight Oxygen saturation Oxygen saturation in Arterial blood by Pulse oximetry Heart rate Respiratory rate Systolic And Diastolic Provider Name and Address Organization Details Last Updated DateTime 5 163.2 cm 34.1 kg/m2 13036.5 5 g 98 % 98 % 62 /min 20 /min 116/82 mm[Hg] Silverio De Jesus MA [facility] 5 11:07:23 Date Recorded Systolic And Diastolic Provider Name and Address Organization Details Last Updated DateTime 01/27/2024 118/80 mm[Hg] DEANNA Alvarez Attn: Accounting,[address] [facility], [place], [address], [facility] 01/27/2024 11:22:20 Date Recorded Body height Body mass index (BMI) Body weight Respiratory rate Oxygen saturation Oxygen saturation in Arterial blood by Pulse oximetry Heart rate Systolic And Diastolic Provider Name and Address Organization Details Last Updated DateTime 4 163.2 cm 36.1 kg/m2 12833.8 7 g 18 /min 99 % 99 % 67 /min 110/78 mm[Hg] Silverio De Jesus MA [facility] 11:03:06 Date Recorded Body height Body mass index (BMI) Body weight Respiratory rate Oxygen saturation Oxygen saturation in Arterial blood by Pulse oximetry Heart rate Systolic And Diastolic Provider Name and Address Organization Details Last Updated DateTime 163.2 cm 36.3 kg/m2 97751.1 7 g 18 /min 98 % 98 % 66 /min 116/82 mm[Hg] Silverio De Jesus MA [facility] 11:26:28 Date Recorded Oxygen saturation Oxygen saturation in Arterial blood by Pulse oximetry Heart rate Pain severity - 0-10 verbal numeric rating [Score] - Reported Provider Name and Address Organization Details Last Updated DateTime 06/21/2024 100 % 100 % 75 /min 4 Nadine Irais [facility] 06/21/2024 15:34:11 Date Recorded Body height Body mass index (BMI) Body weight Respiratory rate Systolic And Diastolic Provider Name and Address Organization Details Last Updated DateTime 06/21/2024 163.2 cm 35.3 kg/m2 51578.6 2 g 18 /min 118/82 mm[Hg] Silverio De Jesus MA [facility] 4 15:31:31 Social History Question Answer Notes LastModified by Organizat ion Details LastModified Time Tobacco Smoking Status Never Smoker Silverio De Jesus MA null, [facility] 09/16/2023 09:32:48 Do You Have An Advance Directive? No Information not available 05/31/2024 Are You Blind Or Do You Have [...] No Information not available 09/16/2023 Are You Deaf Or Do You Have Serious Difficulty Hearing? No Information not available 09/16/2023 What Type Of Diet Are You Following? REGULAR Information not available 09/16/2023 What Is The Highest Grade Or Level Of School You Have Completed Or The Highest Degree You Have Received? [id number] Information not available 06/21/2024 Are There Any Guns Present In Your Home? Yes Information not available 06/21/2024 In The Past 7 Days, How Many Days Did You Exercise? 0 Information not available 06/21/2024 In The Past 7 Days, How Much Pain Have You [place]? A Lot Information not available 06/21/2024 In [...] Past 7 Days, How Often Have You [place] Sleepy In The Daytime? Sometimes Information not available 06/21/2024 # Alcohol Drinks Per Week 0 Information not available 06/21/2024 What Was The Date Of Your Most Recent Tobacco Screening? 11/30/2024 Information not available 11/30/2024 What Is Your Relationship Status? Information not available 06/21/2024 Do You Use Your Seat Belt Or Car Seat Routinely? Yes Information not available 09/16/2023 Do You Have Smoke And Carbon Monoxide Detectors In Your Home? Yes Information not available 09/16/2023 Do You Use Sunscreen Routinely? No Information not available 09/16/2023 Has Tobacco Cessation Counseling Been Provided? No Information not available 06/21/2024 On What Date Was Tobacco Cessation Counseling Provided? 11/30/2024 Information not available 11/30/2024 Sex: Male Functional Status Question Answer Note LastModified by Organizat ion Details LastModified Time Do you use any illicit or recreational drugs? Yes Medical Cannbias Information not available 09/16/2023 Do you or have you ever used any other forms of tobacco or nicotine? No Information not available 09/16/2023 What is your level of alcohol consumption? None Information not available 09/16/2023 Are you currently employed? No Information not available 05/31/2024 Are you able to care for yourself? Yes Information not available 09/16/2023 What is your exercise level? None Information not available 06/21/2024 Mental Status Question Answer Note LastModified by Organization D etails LastModified Time Do you feel stressed (tense, restless, nervous, or anxious, or unable to sleep at night)? [id number] Information not available 09/16/2023 Family History Relationship Description Onset Age of this Age Resolved Age Notes LastModified by Organization Details LastModified Time Mother Diabetes mellitus [email or web address] Not available 2023 15:47:47 Mother Heart disease [email or web address] Not available 2023 15:47:55 Mother Hypertensive disorder [email or web address] Not available 2023 15:48:05 Medical History Condition Response Coronary Artery Disease N Other N Atrial Fibrillation N High Blood Pressure Y Kidney or Bladder Problems Y Thyroid Problems N GI Problems N Depression N COPD N Blood Clots N Have you had a mammogram in the last yea r? N Skin Problems N Anemia N Heart Attack (SC) N Anxiety Disorder N Diabetes Y Muscle, Joint, or Bone Problems N Seizures/Epilepsy N Have you had a colonoscopy in the last 1 0 years? Y Acid Reflux (GERD) N Cancer N Stroke N Asthma N Allergies N Have you had a PSA blood test in the las t year? N High Cholesterol Y Hepatitis N Liver Disease N Headaches N Heart Failure N Osteoporosis N Immunizations [...] [place], [place] [facility] 06/21/2024 15:36:50 COVID-19, mRNA, LNP-S, PF, moises-sucrose, 30 mcg/0.3 mL 5 completed Not Available [facility] 11/30/2024 10:58:03 Influenza, high-dose, trivalent, PF 4 completed DEANNA Alvarez Attn: Accounting,[address] [place], [address], [place] [facility] 06/21/2024 16:29:43 Pneumococcal conjugate PCV20, polysaccharide [id number] conjugate, adjuvant, PF 4 completed DEANNA Alvarez Attn: Accounting[address] [place], [address], [facility] 06/21/2024 16:29:43 Past Encounters Encounter ID Performer Location Encounter Start Date Encounter Closed Date Diagnosis/Indication Diagnosis SNOMED-CT Code Diagnosis ICD10 Code Diagnosis Note [id number] Jose Delgado MD [facility] [address] [place] [address] 09/16/2023 09:20:48 10/03/2023 15:56:08 Uncontrolled type 2 diabetes mellitus 290306365 E11.65 last a1c 8.9%. mounjaro was added at last appt. now due for f/u labs. also on metformin 850mg with dinner and lantus 50 units daily. Increase to mounjaro 5mg weekly dosing with plans to escalate dose as tolerated. Benign ess ential hypertension 7277843 I10 stable on coreg 6.25mg bid and felodipine ER 10mg daily and indapamide 2.5mg total daily. Hyperlipidemia 10134335 E78.5 on crestor 20mg daily. due for fasting lipids. Degenerati on of lumbar intervertebral disc 06552265 M51.36 pt uses medicinal marijuana for pain management purposes. Chronic low back pain 27 4390035 M54.50 as above. Long-term drug therapy 214709318 Z79.899 routine cbc, bmp and lft due. Long-term current use of insulin 120731665 Z79.4 Age relate d macular degeneration 115465585 H35.30 noted with updated eye exam. [id number] Jose Delgado MD [facility] [address] [place] [address] 01/27/2024 10:45:50 01/27/2024 11:47:41 Body mass index 30+ - obesity 088621280 Z68.36 BMI is 36.1 Obesity 324469254 E66.8 discussed healthy diet, exercise, controllin g carbohydra bernie and added sugars in the diet Uncontroll ed type 2 diabetes mellitus 951527981 E11.65 last a1c 6.5% . mounjaro was added at last appt. now due for f/u labs. also on metformin 850mg with dinner and lantus 50 units daily. Long-term current use of insulin 576254888 Z79.4 Benign ess ential hypertension 4783079 I10 stable on coreg 6.25mg bid and felodipine ER 10mg daily and indapamide 2.5mg total daily. Hyperlipidemia 10572659 E78.5 on crestor 20mg daily. due for fasting lipids. Degenerati on of lumbar intervertebral disc 67364600 M51.36 pt uses medicinal marijuana for pain management purposes. Chronic low back pain 27 4107978 M54.50 as above. Age relate d macular degeneration 905574391 H35.30 noted with updated eye exam. Long-term drug therapy 784318886 Z79.899 routine cbc, bmp and lft due. [id number] Jose Delgado MD [facility] [address] [place] [address] 05/31/2024 10:54:30 05/31/2024 12:33:59 Uncontrolled type 2 diabetes mellitus 694359068 E11.65 last a1c 6.4% . Boost to 1 mg weekly Ozempic. Repeat labs in October Benign ess ential hypertension 4169557 I10 stable on coreg 6.25mg bid and felodipine ER 10mg daily and indapamide 2.5mg total daily. Hyperlipidemia 71292401 E78.5 on crestor 20mg daily. Repeat fasting lipid panel in October Chronic low back pain 27 0698122 M54.50 as above. Stable on medical grade cannabis therapy Age relate d macular degeneration 512960217 H35.30 noted with updated eye exam. Degenerati on of lumbar intervertebral disc 29698733 M51.369 pt uses medicinal marijuana for pain management purposes. Long-term current use of insulin 919597195 Z79.4 Patient is stable on Lantus 46 units daily Body mass index 30+ - obesity 397647352 Z68.36 BMI is 36.1 Obesity 455262147 E66.9 discussed healthy diet, exercise, controllin g carbohydra bernie and added sugars in the diet Long-term drug therapy 887807551 Z79.899 routine cbc, bmp and lft due again in October Screening for malignant neoplasm of prostate 137479677 Z12.5 Annual PSA due in October [id number] Jose Delgado MD [facility] [address] [place] [address] 06/21/2024 15:14:08 06/21/2024 16:23:46 Adult health examination 066161561 Z00.00 Health Risk Assessment collected and reviewed Administra tion of influenza vaccine 05756329 Z23 Flu shot high dose given in the office today Administra tion of pneumococcal vaccine 36384237 Z23 Prevnar 20 given in the office [id number] Jose Delgado MD [facility] [facility] - Elsie Lozano [address] [place] [address] 11/30/2024 10:55:54 11/30/2024 11:45:19 Obese class I [id number] E66.811 discussed healthy diet, exercise, controllin g carbohydra bernie and added sugars in the diet Benign ess ential hypertension [id number] I10 110/72 blood pressure today. stable on coreg 6.25mg bid and felodipine ER 10mg daily and indapamide 2.5mg total daily. Hyperlipidemia [id number] E78.5 on crestor 20mg daily. Next fasting labs due in May Chronic low back pain 27 [id number] M54.50 as above. Stable on medical grade cannabis therapy Age relate d macular degeneration [id number] H35.30 noted with updated eye exam. Degenerati on of lumbar intervertebral disc [id number] M51.369 pt uses medicinal marijuana for pain management purposes. Long-term current use of insulin [id number] Z79.4 Patient is stable on Lantus 46 units daily Long-term drug therapy [id number] Z79.899 Next labs due in May Well contr olled type 2 diabetes mellitus [id number] E11.9 last a1c 6.3. Next labs due in May continue Ozempic 1 mg weekly dosing as well as metformin 850 mg daily and Lantus 50 units daily. History of polyp of colon [id number] Z86.0100 recent scope. noncancero us polyp. repeat 7 years. Health Concerns Section Related Observation LastModified by Organization Detai ls LastModified Time None Recorded Concern Status LastModified by Organization Details LastModified Time None Recorded Advance Directives Directive N: Payers Insurance Date Sequence Insurance Name Policy Number Policy Myers Covered Member ID Myers Member ID Guarantor Name 12/17/2024 1 [facility] (MEDICARE REPLACEMENT/A DVANTAGE - HMO) [id number] Michael Salinas [id number] Michael Salinas 11/30/2024 2 [place] Michael Salinas [id number] Michael Salinas Notes Date Note Type Note Provider Name and Address Organization Details Recorded Time 09/16/19 24 text/htm l Back PainReported bypatient.Notes:chronic low back pain. DDD.DiabetesReported bypatient.Control:worsened since last visit; hemoglobin A1C has been 8-9; hemoglobin A1C goal is less than 7HyperlipidemiaReported bypatient.Type of hyperlipidemia:combined Duration:chronic Control:usually well controlled Compliance:compliant;noncompl iant with diet;does not exercise Complications:no coronary artery disease; no peripheral artery disease; no cardiovascular disease Risk Factors:diabetes;hypertension ;obesityHypertensionReported bypatient.Duration:has noted for years Onset/Timing:better Alleviating Factors:medication Associated Symptoms:no shortness of breath; no fatigue; no palpitations; no decline in exercise capacity; no snoring DEANNA Alvarez Attn: Accounting,[address] [place], [address], [facility] 10/01/2023 14:55:02 01/27/20 24 text/htm l Back PainReported bypatient.Notes:chronic low back pain. DDD.DiabetesReported bypatient.Control:worsened since last visit; hemoglobin A1C has been 8-9; hemoglobin A1C goal is less than 7HyperlipidemiaReported bypatient.Type of hyperlipidemia:combined Duration:chronic Control:usually well controlled Compliance:compliant;noncompl iant with diet;does not exercise Complications:no coronary artery disease; no peripheral artery disease; no cardiovascular disease Risk Factors:diabetes;hypertension ;obesityHypertensionReported bypatient.Duration:has noted for years Onset/Timing:better Alleviating Factors:medication Associated Symptoms:no shortness of breath; no fatigue; no palpitations; no decline in exercise capacity; no snoring DEANNA Alvarez Attn: Accounting[address] [place], [address], [facility] 02/15/2024 07:18:00 05/31/20 24 text/htm l Back PainReported bypatient.Notes:chronic low back pain. DDD.DiabetesReported bypatient.Control:worsened since last visit; hemoglobin A1C has been 8-9; hemoglobin A1C goal is less than 7HyperlipidemiaReported bypatient.Type of hyperlipidemia:combined Duration:chronic Control:usually well controlled Compliance:compliant;noncompl iant with diet;does not exercise Complications:no coronary artery disease; no peripheral artery disease; no cardiovascular disease Risk Factors:diabetes;hypertension ;obesityHypertensionReported bypatient.Duration:has noted for years Onset/Timing:better Alleviating Factors:medication Associated Symptoms:no shortness of breath; no fatigue; no palpitations; no decline in exercise capacity; no snoring DEANNA Alvarez Attn: Accounting[address] [place], [address], [facility] 06/15/2024 17:53:05 06/21/20 24 text/htm l MAW 2Reported bypatient.Diet and Nutrition:healthy diet Fracture [...] bars in the bathroom/shower DEANNA Alvarez Attn: Accounting[address] [place], [address], [facility] 06/21/2024 16:30:32 12/01/19 25 text/htm l Back PainReported bypatient.Notes:chronic low back pain. DDD.DiabetesReported bypatient.Control:worsened since last visit; hemoglobin A1C has been 8-9; hemoglobin A1C goal is less than 7Notes:A1c is 6.3%HyperlipidemiaReported bypatient.Type of hyperlipidemia:combined Duration:chronic Control:usually well controlled Compliance:compliant;noncompl iant with diet;does not exercise Complications:no coronary artery disease; no peripheral artery disease; no cardiovascular disease Risk Factors:diabetes;hypertension ;obesityNotes:LDL cholesterol 57 triglycerides 116 HDL 37 total 115. Patient is taking rosuvastatin 20 mg dailyHypertensionReported bypatient.Duration:has noted for years Onset/Timing:better Alleviating Factors:medication Associated Symptoms:no shortness of breath; no fatigue; no palpitations; no decline in exercise capacity; no snoring Annual PSA completed and 1.6 DEANNA Alvarez Attn: Accounting[address] [place], [address], [facility] 12/16/2024 11:20:16
[2025-02-06 09:08] LABS: Hematocrit 41.3 % (42.0-52.0); Hemoglobin 13.5 g/dL (14.0-18.0); Immature Granulocyte Percent A 0.5 % (0-0.5); Lymphocytes Absolute Auto 1.65 K/mm3 (0.9-3.2); Mean Corpuscular HGB Conc 32.7 g/dl (32-36); Mean Corpuscular Hemoglobin 29.5 pg (26-34); Mean Corpuscular Volume 90.4 fl (80-100); Nucleated Red Blood Cells Absolute Auto 0.000 K/mm3 (0.0-0.012); Nucleated Red Blood Cells Perc 0.0 % (0.0-0.2); Platelet Count Result 236 k/mm3 (150-375); Red Blood Count 4.57 M/mm3 (4.6-6.20); White Blood Count 12.0 K/mm3 (4.5-10.0)
[2025-02-06 09:19] LABS: Estimated CRCL calculation 38 ml/min; Estimated Glomerular Filt Rate 40
[2025-02-06 09:36] LABS: Alanine Aminotransferase 25 U/L (6-50); Albumin Level 3.8 g/dL (3.5-5.1); Alkaline Phosphatase 57 U/L (38-126); Anion Gap 8 mmol/L (4-12); Aspartate Amino Transferase 28 U/L (17-59); Bilirubin,Total 0.9 mg/dL (0.2-1.3); Blood Urea Nitrogen 44 mg/dL (9-20); Calcium 9.2 mg/dL (8.4-10.2); Carbon Dioxide 25 mmol/L (22-30); Chloride 101 mmol/L (98-107); Estimated CRCL calculation 43 ml/min; Estimated Glomerular Filt Rate 47; Glucose 139 mg/dL (65-110); Lipase 121 U/L (23-300); Potassium 3.9 mmol/L (3.4-5.0); Sodium 134 mmol/L (137-145); Total Protein 7.2 g/dL (6.3-8.2)
--- NOTE | 2025-02-06 09:36 | ED_ITS ---
HPI - General Adult General Chief complaint: Unspecified Stated complaint: hernia Time Seen by Provider: 02/06/25 09:00 Patient is a 69-year-old male who presents to the ER with a red and swollen abdomen. He reports he has a history of an umbilical hernia but for the last 2 days it has been red and hard.Patient also endorses pain and warmth around the area. He reports he had a bowel movement this morning and was normal for him. Patient reports ?I took a hit off a Bong before I came in so he does not need pain or nausea medication at this time. He denies any recent fevers, urinary symptoms, or back pain. He endorses a history of an inguinal hernia that was repaired here at [facility]. Patient's chart indicates he has a history of diabetes, high blood pressure, and hyperlipidemia. Related Data Home Medications ?Medication ?Instructions ?Recorded ?Confirmed ?Last Taken ?Type carvedilol 6.25 mg tablet 6.25 mg PO Q12H 02/11/20 10/24/24 10/24/24 History cyanocobalamin (vitamin B-12) 5,000 mcg PO DAILY 02/11/20 10/24/24 10/23/24 History 1,000 mcg tablet felodipine 10 mg tablet,extended 10 mg PO DAILY 02/11/20 10/24/24 10/24/24 History release 24 hr glucosamine-chondroitin 250 mg-200 1 tablet PO BID 02/11/20 10/24/24 10/24/24 History mg tablet (Osteo Bi-Flex) indapamide 1.25 mg tablet 1.25 mg PO BID 02/11/20 10/24/24 10/23/24 History pioglitazone 15 mg-metformin 850 15 - 850 tablet PO QPM 02/11/20 10/16/24 Unknown History mg tablet quinapril 40 mg tablet 40 mg PO BID 02/11/20 10/16/24 Unknown History aspirin 81 mg tablet,delayed 81 mg PO DAILY 10/16/24 10/24/24 10/24/24 History release (Adult Low Dose Aspirin) insulin glargine 100 unit/mL (3 46 unit subcut QPM 10/16/24 10/24/24 10/23/24 History mL) subcutaneous pen (Lantus Solostar U-100 Insulin) lisinopril 40 mg tablet 40 mg PO BID 10/16/24 10/24/24 10/24/24 History rosuvastatin 20 mg tablet 20 mg PO DAILY 10/16/24 10/24/24 10/24/24 History semaglutide 1 mg/dose (4 mg/3 mL) 1 mg subcut WEEKLY 10/16/24 10/24/24 10/19/24 History subcutaneous pen injector (Ozempic) Allergies Allergy/AdvReac Type Severity Reaction Status Date / Time atorvastatin Allergy Unknown Unknown Verified 02/06/25 08:43 Sulfa (Sulfonamide Allergy Unknown RASH Verified 02/06/25 08:43 Antibiotics) sulfanilamide Allergy Unknown RASH Verified 02/06/25 08:43 Review of Systems 2 Review of Systems: All systems reviewed & are unremarkable except as noted in HPI and below PMFSH Past Medical History Medical History Diverticulitis Degenerative disc disease Bladder stones Kidney stones Hyperlipidemia Uncontrolled type 2 diabetes mellitus Hemoglobin A1c was 13% on 02/11/2020. Hypertension Surgical History Surgical History History of appendectomy History of lithotripsy History of cystoscopy Family History Family History Mother Family history of heart disease in male family member before age 55 Family history of elevated blood lipids Family history of diabetes mellitus in first degree relative Family history of obesity Family history of congestive heart failure Hypertension Sibling Family history of diabetes mellitus in first degree relative Family history of lupus erythematosus Mesothelioma Other Diabetes mellitus Family history of kidney disease Social History Social History Social History: Surrogate decision maker: Dennise Salinas, . Code status: Full code. Smoking status: Never smoker Alcohol intake: never Substance use: current Substance use type: marijuana Other substance usage details: MEDICAL CANNIBAS DAILY Living arrangements: with family Additional living arrangements comments: Lives with his and son in [place]. 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 Spiritual care concerns: No Exam 2 Narrative: GENERAL: Well appearing, well-nourished, non-toxic, in no acute distress. HEAD: Normocephalic, atraumatic. NECK: Supple. No adenopathy, no masses. RESPIRATORY: Airway patent, respirations nonlabored. Clear to auscultation bilaterally, no rales, rhonchi, wheezing. CARDIOVASCULAR: Regular rate and rhythm without murmurs, rubs, or gallops. Peripheral pulses 2+ and equal bilaterally. ABDOMINAL: Soft, + tender, nondistended, no hepatosplenomegaly. Normoactive BS. Circular redness measuring approximately 20cm by 20 cm with no drainage. MUSCULOSKELETAL: Moves all extremities. Strength/ROM intact without gross deformities. SKIN: Warm, dry, normal color. No rashes. NEURO: A&O X3. Speech clear. Cranial nerves II-XII intact. No ataxic movements. PSYCHIATRIC: Appropriate mood and affect. Normal interaction. Course Vital Signs Vital signs: Vital Signs Temperature 36.4 C 02/06/25 08:40 Pulse Rate 72 02/06/25 08:40 Respiratory Rate 16 02/06/25 08:40 Blood Pressure 97/64 L 02/06/25 08:40 Pulse Oximetry 98 02/06/25 08:40 Temperature 36.9 C 02/06/25 10:49 Pulse Rate 72 02/06/25 10:49 Respiratory Rate 18 02/06/25 10:49 Blood Pressure 121/63 02/06/25 10:49 Pulse Oximetry 100 02/06/25 10:49 Medical Decision Making [facility] Narrative Medical decision making narrative: Patient is a 69-year-old male who presents to the ER with a red and swollen abdomen. He reports he has a history of an umbilical hernia but for the last 2 days it has been red and hard.Patient also endorses pain and warmth around the area. He reports he had a bowel movement this morning and was normal for him. Patient reports ?I took a hit off a Bong before I came in so he does not need pain or nausea medication at this time. He denies any recent fevers, urinary symptoms, or back pain. He endorses a history of an inguinal hernia that was repaired here at [facility]. Patient's chart indicates he has a history of diabetes, high blood pressure, and hyperlipidemia. Labs Ordered: CBC, CMP, lactic acid, ESR, CRP, lipase, UA, PTT, INR Imaging Ordered: CT abdomen pelvis Medications Ordered: Vancomycin IV, Zosyn IV, 3 L normal saline IV bolus, patient declined medication administration Results: Pt's CT scan indicates 1. Umbilical hernia with incarcerated fat and associated phlegmonous inflammatory changes involving both the herniated fat and adjacent subcutaneous tissues. Recommend surgical evaluation due to evidence of fat incarceration and evolving inflammation. Diagnosis: Umbilical hernia with incarcerated fat, cellulitis Consults: General surgery, Dr. Gonzalez, who advised patient be admitted to the hospital under hospitalist. He requested patient remain NPO and receive IV antibiotics. Patient Education/Shared MDM: Results of lab work and imaging shared with patient. It was advised patient be admitted to the hospital for further assessment and treatment. Patient verbalized understanding and is in agreement with plan. He continues to decline pain medication at this time. Patient will be admitted to the med/surg unit. Differential Diagnosis Differential Diagnosis: Cellulitis, incarcerated hernia, abscess, urinary tract infection Vital Signs Vital Signs: Vital Signs Temperature 36.4 C 02/06/25 08:40 Pulse Rate 72 02/06/25 08:40 Respiratory Rate 16 02/06/25 08:40 Blood Pressure 97/64 L 02/06/25 08:40 Pulse Oximetry 98 02/06/25 08:40 Temperature 36.9 C 02/06/25 10:49 Pulse Rate 72 02/06/25 10:49 Respiratory Rate 18 02/06/25 10:49 Blood Pressure 121/63 02/06/25 10:49 Pulse Oximetry 100 02/06/25 10:49 Lab Data 02/06/25 08:56 02/06/25 09:18 Labs: Lab Results 02/06/25 02/06/25 02/06/25 Range/Units 08:55 08:56 08:59 WBC 12.0 H (4.5-10.0) K/mm3 RBC 4.57 L (4.6-6.20) M/mm3 Hgb 13.5 L (14.0-18.0) g/dL Hct 41.3 L (42.0-52.0) % MCV 90.4 (80-100) fl MCH 29.5 (26-34) pg MCHC 32.7 (32-36) g/dl RDW 13.5 (11.5-14.5) % Plt Count 236 (150-375) k/mm3 MPV 10.9 H (7.4-10.4) fl Immature Gran % (Auto) 0.5 (0-0.5) % Neut % (Auto) 73.3 H (45.5-73.1) % Lymph % (Auto) 13.7 L (18.3-44.2) % Garrett % (Auto) 8.7 H (2.6-8.5) % Eos % (Auto) 3.5 (0-4.4) % Baso % (Auto) 0.3 (0.2-1.2) % Lymph # (Auto) 1.65 (0.9-3.2) K/mm3 Garrett # (Auto) 1.1 H (0.1-0.6) K/mm3 Eos # (Auto) 0.4 H (0-0.3) K/mm3 Baso # (Auto) 0.0 (0.0-0.1) K/mm3 Abs Immat Gran (auto) 0.06 H (0.00-0.031) K/mm3 Absolute Neuts (auto) 8.8 H (1.3-6.7) K/mm3 Absolute Nucleated RBC 0.000 (0.0-0.012) K/mm3 Nucleated RBC % 0.0 (0.0-0.2) % ESR 24 H (0-20) mm/hr PT 13.3 (11.1-14.7) Seconds INR 1.0 APTT 26.4 (22.3-36.8) Seconds Sodium 134 L (137-145) mmol/L Potassium 3.9 (3.4-5.0) mmol/L Chloride 101 (98-107) mmol/L Carbon Dioxide 25 (22-30) mmol/L Anion Gap 8 (4-12) mmol/L BUN 44 H D (9-20) mg/dL Creatinine 1.49 H (0.7-1.3) mg/dL Estim Creat Clear Calc 43 ml/min Estimated GFR 47 L (59 - ) Glucose 139 H (65-110) mg/dL Lactic Acid 1.0 (0.7-2.0) mmol/L Calcium 9.2 (8.4-10.2) mg/dL Total Bilirubin 0.9 (0.2-1.3) mg/dL AST 28 (17-59) U/L ALT 25 (6-50) U/L Alkaline Phosphatase 57 (38-126) U/L C-Reactive Protein 3.1 H (<1.0) mg/dL Total Protein 7.2 (6.3-8.2) g/dL Albumin 3.8 (3.5-5.1) g/dL Lipase 121 (23-300) U/L Urine Color Dark yellow (Yellow) Urine Appearance Clear (Clear) Urine pH 5.5 (5.0-9.0) Ur Specific [place] 1.019 (1.001-1.035) Urine Protein Trace (Negative) mg/dL Urine Glucose (UA) Negative (Negative) mg/dL Urine Ketones Trace H (Negative) mg/dL Ur Blood (Man) Negative (Negative) Urine Nitrate Negative (Negative) Urine Bilirubin Negative (Negative) Urine Urobilinogen 1.0 (<2.0) mg/dL Add Ur Microanalysis Reviewed Leukocyte Esterase Rfl 2+ H (Negative) JUANCARLOS/UL Urine RBC 21-50 H (0-2) /hpf Urine WBC 11-20 H (0-3) /hpf Ur Squamous Epith Cells Occasional (Few) /hpf Urine Bacteria None seen /hpf Urine Casts >20 Hyaline Casts Present (None) /lpf 02/06/25 02/06/25 Range/Units 09:18 10:12 WBC (4.5-10.0) K/mm3 RBC (4.6-6.20) M/mm3 Hgb (14.0-18.0) g/dL Hct (42.0-52.0) % MCV (80-100) fl MCH (26-34) pg MCHC (32-36) g/dl RDW (11.5-14.5) % Plt Count (150-375) k/mm3 MPV (7.4-10.4) fl Immature Gran % (Auto) (0-0.5) % Neut % (Auto) (45.5-73.1) % Lymph % (Auto) (18.3-44.2) % Garrett % (Auto) (2.6-8.5) % Eos % (Auto) (0-4.4) % Baso % (Auto) (0.2-1.2) % Lymph # (Auto) (0.9-3.2) K/mm3 Garrett # (Auto) (0.1-0.6) K/mm3 Eos # (Auto) (0-0.3) K/mm3 Baso # (Auto) (0.0-0.1) K/mm3 Abs Immat Gran (auto) (0.00-0.031) K/mm3 Absolute Neuts (auto) (1.3-6.7) K/mm3 Absolute Nucleated RBC (0.0-0.012) K/mm3 Nucleated RBC % (0.0-0.2) % ESR (0-20) mm/hr PT (11.1-14.7) Seconds INR APTT (22.3-36.8) Seconds Sodium (137-145) mmol/L Potassium (3.4-5.0) mmol/L Chloride (98-107) mmol/L Carbon Dioxide (22-30) mmol/L Anion Gap (4-12) mmol/L BUN (9-20) mg/dL Creatinine 1.70 H (0.7-1.3) mg/dL Estim Creat Clear Calc 38 ml/min Estimated GFR 40 L (59 - ) Glucose (65-110) mg/dL Lactic Acid 0.9 (0.7-2.0) mmol/L Calcium (8.4-10.2) mg/dL Total Bilirubin (0.2-1.3) mg/dL AST (17-59) U/L ALT (6-50) U/L Alkaline Phosphatase (38-126) U/L C-Reactive Protein (<1.0) mg/dL Total Protein (6.3-8.2) g/dL Albumin (3.5-5.1) g/dL Lipase (23-300) U/L Urine Color (Yellow) Urine Appearance (Clear) Urine pH (5.0-9.0) Ur Specific [place] (1.001-1.035) Urine Protein (Negative) mg/dL Urine Glucose (UA) (Negative) mg/dL Urine Ketones (Negative) mg/dL Ur Blood (Man) (Negative) Urine Nitrate (Negative) Urine Bilirubin (Negative) Urine Urobilinogen (<2.0) mg/dL Add Ur Microanalysis Leukocyte Esterase Rfl (Negative) JUANCARLOS/UL Urine RBC (0-2) /hpf Urine WBC (0-3) /hpf Ur Squamous Epith Cells (Few) /hpf Urine Bacteria /hpf Urine Casts Hyaline Casts (None) /lpf Imaging Data Attestation: I personally reviewed and interpreted this imaging study as follows: Radiologist's impression: Impressions Abdomen/Pelvis CT 02/06/25 09:28 IMPRESSION: 1. Umbilical hernia with incarcerated fat and associated phlegmonous inflammatory changes involving both the herniated fat and adjacent subcutaneous tissues. Recommend surgical evaluation due to evidence of fat incarceration and evolving inflammation. Discharge Plan Discharge Clinical Impression: Hernia of abdominal wall, Cellulitis Patient Disposition: Still a Patient Condition: Stable Patient Language: Tuvaluan Prescriptions: No Action carvedilol 6.25 mg tablet 6.25 mg PO Q12H cyanocobalamin (vitamin B-12) 1,000 mcg Tablet 5,000 mcg PO DAILY quinapril 40 mg tablet 40 mg PO BID Patient Comments: STATES TAKES LISINOPRIL indapamide 1.25 mg tablet 1.25 mg PO BID felodipine 10 mg tablet extended release 24 hr 10 mg PO DAILY glucosamine-chondroitin [Osteo Bi-Flex] 250-200 mg Tablet 1 tablet PO BID pioglitazone-metformin 15-850 mg tablet 15 - 850 tablet PO QPM metformin [Glucophage] 850 mg Tablet 850 mg PO QPM Qty: 30 3RF (DME) pen needle, diabetic [Advocate Pen Needle] 29 gauge x 1/2 needle See Rx Instructions .ROUTE .MEDSUPPLY Qty: 90 0RF Rx Instructions: As directed (DME) blood-glucose meter [Blood Glucose Monitoring] Kit See Rx Instructions .ROUTE .MEDSUPPLY Qty: 1 0RF Rx Instructions: As directed (DME) Blood Glucose Test Strip See Rx Instructions .ROUTE .MEDSUPPLY Qty: 100 0RF Rx Instructions: As directed lisinopril 40 mg tablet 40 mg PO BID Ozempic 1 mg/dose (4 mg/3 mL) pen injector 1 mg SUBCUT WEEKLY Patient Comments: FRIDAYS rosuvastatin 20 mg tablet 20 mg PO DAILY aspirin [Adult Low Dose Aspirin] 81 mg tablet,delayed release (DR/EC) 81 mg PO DAILY insulin glargine [Lantus Solostar U-100 Insulin] 100 unit/mL (3 mL) insulin pen 46 unit SUB-Q QPM Follow-up/Referrals: Jett,QIAN Gandhi [Primary Care Provider] -
[2025-02-06 09:38] LABS: Add Urine Microscopic? YES; Appearance Urine Clear (Clear); Glucose Urine UA Negative (Negative); Leukocyte Esterase Ur 2+ LEU/UL (Negative); Need Manual Microscopic Reviewed; Nitrate Urine Negative (Negative); Non Pathogenic Casts >20; Specific Grav Ur 1.019 (1.001-1.035)
--- NOTE | 2025-02-06 09:39 | ECG_ITS ---
Test Date: 2025-02-06 10:31:21 Measurements Intervals [place] Rate: 65 P: 7 AR: 151 QRS: -27 QRSD: 106 T: 35 QT: 366 QTc: 383 Interpretive Statements SINUS RHYTHM BORDERLINE LEFT AXIS DEVIATION [QRS AXIS < -20] ABNORMAL ECG No previous ECG available for comparison Electronically Signed On 02-06-2025 14:06:02 CDT by Colton Crabtree M.D.
[2025-02-06] MEDS: SODIUM CHLORIDE 0.9% IV 1,000 ML 999 ML IV CONT ×3 (09:53→10:38)
[2025-02-06 10:12] LABS: INR 1.0; Prothrombin Time 13.3 Seconds (11.1-14.7)
[2025-02-06 10:13] LABS: Partial Thromboplastin Time 26.4 Seconds (22.3-36.8)
[2025-02-06 10:19] LABS: CRP 3.1 mg/dL (<1.0)
[2025-02-06] MEDS: SODIUM CHLORIDE 0.9% IV 700 ML 999 ML IV CONT (10:38)
[2025-02-06] MEDS: VANCOMYCIN 1,250 MG/NS 250 ML 1,250 MG/250 ML BAG 166.67 MG IVPB (10:38)
[2025-02-06] MEDS: FAMOTIDINE 20 MG/2 ML VIAL IV PUSH ×2 (12:05→20:58)
--- NOTE | 2025-02-06 12:08 | PM.CNGS ---
Assessment and Plan Assessment and plan (1) Incarcerated umbilical hernia: Code(s): K42.0 - Umbilical hernia with obstruction, without gangrene Status: Acute Assessment and Plan: Patient has had this umbilical hernia for over 20 years, but as of the past 2-3 days it has developed increased redness and swelling with firmness. No changes in bowel or bladder habits. Mild nausea but no vomiting. CT demonstrated umbilical hernia with incarcerated fat associated phlegmonous inflammatory changes involving both herniated fat and adjacent subcutaneous tissues. Plan for open repair of incarcerated umbilical hernia this afternoon. Continue Zosyn. NPO. Plan Discussed patient's case and plan of care with Dr. Gonzalez. History of Present Illness Consult details Consult date: 02/06/25 Reason for consult: other (hernia, cellulitis) Requesting physician: Adriana Majano APRN Narrative: Patient is a 69-year-old male with history of diverticulitis and type 2 diabetes mellitus we have been asked to see in surgical consultation for an incarcerated umbilical hernia with overlying cellulitis. Patient has had this hernia for over 20 years without any issues. For the past 2-3 days it has become increasingly erythematous and edematous with increased firmness. He also endorses increased warmth to the area. Patient does not recall any trauma to the area. He does note that he 1st noted the changes after mowing the lawn. No changes in bowel or bladder habits. Last BM this morning. Noted some nausea with no vomiting that has since resolved. Of note he has been on Ozempic for over a year. Patient does not complain of any pain, however he did state that he smoked some marijuana prior to arrival. WBC count 12.0. CT of the abdomen and pelvis demonstrated umbilical hernia with incarcerated fat associated phlegmonous inflammatory changes involving both the herniated fat and adjacent subcutaneous tissues. Currently receiving IV Zosyn and isotonic IV fluids. Per chart, patient has history of appendectomy and inguinal hernia repair. Patient does not take any blood thinners aside from baby aspirin. [facility] Past Medical History Medical History Diverticulitis Degenerative disc disease Bladder stones Kidney stones Hyperlipidemia Uncontrolled type 2 diabetes mellitus Hemoglobin A1c was 13% on 02/11/2020. Hypertension Surgical History Surgical History History of appendectomy History of lithotripsy History of cystoscopy Family History Family History Mother Family history of heart disease in male family member before age 55 Family history of elevated blood lipids Family history of diabetes mellitus in first degree relative Family history of obesity Family history of congestive heart failure Hypertension Sibling Family history of diabetes mellitus in first degree relative Family history of lupus erythematosus Mesothelioma Other Diabetes mellitus Family history of kidney disease Social History Social History Social History: Surrogate decision maker: Dennise Salinas, . Code status: Full code. Smoking status: Never smoker Alcohol intake: never Substance use: current Substance use type: marijuana Other substance usage details: MEDICAL CANNIBAS DAILY Living arrangements: with family Additional living arrangements comments: Lives with his and son in [place]. 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 Spiritual care concerns: No Meds Home Medications and Allergies Home Medications ?Medication ?Instructions ?Recorded ?Confirmed ?Type carvedilol 6.25 mg tablet 6.25 mg PO Q12H 02/11/20 10/24/24 History cyanocobalamin (vitamin B-12) 5,000 mcg PO DAILY 02/11/20 10/24/24 History 1,000 mcg tablet felodipine 10 mg tablet,extended 10 mg PO DAILY 02/11/20 10/24/24 History release 24 hr glucosamine-chondroitin 250 mg-200 1 tablet PO BID 02/11/20 10/24/24 History mg tablet (Osteo Bi-Flex) indapamide 1.25 mg tablet 1.25 mg PO BID 02/11/20 10/24/24 History pioglitazone 15 mg-metformin 850 15 - 850 tablet PO QPM 02/11/20 10/16/24 History mg tablet quinapril 40 mg tablet 40 mg PO BID 02/11/20 10/16/24 History blood sugar diagnostic (Blood #100 ea 02/12/20 Rx Glucose Test strips) blood-glucose meter (Blood Glucose #1 ea 02/12/20 Rx Monitoring kit) metformin 850 mg tablet 850 mg PO QPM #30 tabs 02/12/20 10/24/24 Rx (Glucophage) pen needle, diabetic 29 gauge x #90 ea 02/12/20 Rx 1/2 (Advocate Pen Needle) aspirin 81 mg tablet,delayed 81 mg PO DAILY 10/16/24 10/24/24 History release (Adult Low Dose Aspirin) insulin glargine 100 unit/mL (3 46 unit subcut QPM 10/16/24 10/24/24 History mL) subcutaneous pen (Lantus Solostar U-100 Insulin) lisinopril 40 mg tablet 40 mg PO BID 10/16/24 10/24/24 History rosuvastatin 20 mg tablet 20 mg PO DAILY 10/16/24 10/24/24 History semaglutide 1 mg/dose (4 mg/3 mL) 1 mg subcut WEEKLY 10/16/24 10/24/24 History subcutaneous pen injector (Ozempic) Allergies Allergy/AdvReac Type Severity Reaction Status Date / Time atorvastatin Allergy Unknown Unknown Verified 02/06/25 08:43 Sulfa (Sulfonamide Allergy Unknown RASH Verified 02/06/25 08:43 Antibiotics) sulfanilamide Allergy Unknown RASH Verified 02/06/25 08:43 Vital Signs Vital Signs - 24 hr 02/06/25 08:40 02/06/25 09:55 02/06/25 10:49 Temperature 97.6 F 98.5 F Pulse Rate 72 71 72 Respiratory Rate 16 18 18 Blood Pressure 97/64 L 105/72 121/63 Pulse Oximetry 98 98 100 02/06/25 11:34 Temperature Pulse Rate 76 Respiratory Rate 14 Blood Pressure 114/64 Pulse Oximetry 98 Exam Const: General: comfortable and no acute distress Eyes: General: appearance normal, both eyes and all related structures Neck: Neck: supple Resp: Effort & Inspection: normal respiratory effort Cardio: Rate: regular rate GI: Inspection: non-distended GI Palp: Yes Soft to palpation and No Tenderness to palpation present (GI) Auscultation: normal bowel sounds Other: Evident erythema surrounding incarcerated umbilical hernia. No tenderness to palpation. Hernia is irreducible and very firm to the touch. : General: Yes bladder normal to palpation Skin: General skin exam: normal color Extrem: General: normal to inspection Psych: Mental Status: mental status grossly normal Results Labs 02/06/25 08:56 02/06/25 09:18 Labs: Abnormal lab results 02/06/25 02/06/2502/06/25 Range/Units 08:56 08:59 09:18 WBC 12.0 H (4.5-10.0) K/mm3 RBC 4.57 L (4.6-6.20) M/mm3 Hgb 13.5 L (14.0-18.0) g/dL Hct 41.3 L (42.0-52.0) % MPV 10.9 H (7.4-10.4) fl Neut % (Auto) 73.3 H (45.5-73.1) % Lymph % (Auto) 13.7 L (18.3-44.2) % [place] % (Auto) 8.7 H (2.6-8.5) % [place] # (Auto) 1.1 H (0.1-0.6) K/mm3 Eos # (Auto) 0.4 H (0-0.3) K/mm3 Abs Immat Gran (auto) 0.06 H (0.00-0.031) K/mm3 Absolute Neuts (auto) 8.8 H (1.3-6.7) K/mm3 ESR 24 H (0-20) mm/hr Sodium 134 L (137-145) mmol/L BUN 44 H D (9-20) mg/dL Creatinine 1.49 H 1.70 H (0.7-1.3) mg/dL Estimated GFR 47 L 40 L (59 - ) Glucose 139 H (65-110) mg/dL C-Reactive Protein 3.1 H (<1.0) mg/dL Urine Ketones Trace H (Negative) mg/dL Leukocyte Esterase Rfl 2+ H (Negative) JUANCARLOS/UL Urine RBC 21-50 H (0-2) /hpf Urine WBC 11-20 H (0-3) /hpf Diabetes panel 02/06/25 02/06/25 Range/Units 08:56 09:18 Sodium 134 L (137-145) mmol/L Potassium 3.9 (3.4-5.0) mmol/L Chloride 101 (98-107) mmol/L Carbon Dioxide 25 (22-30) mmol/L BUN 44 H D (9-20) mg/dL Creatinine 1.49 H 1.70 H (0.7-1.3) mg/dL Glucose 139 H (65-110) mg/dL Calcium 9.2 (8.4-10.2) mg/dL AST 28 (17-59) U/L ALT 25 (6-50) U/L Alkaline Phosphatase 57 (38-126) U/L Total Protein 7.2 (6.3-8.2) g/dL Albumin 3.8 (3.5-5.1) g/dL Calcium panel 02/06/25 Range/Units 08:56 Calcium 9.2 (8.4-10.2) mg/dL Albumin 3.8 (3.5-5.1) g/dL Pituitary panel 02/06/25 02/06/25 Range/Units 08:56 09:18 Sodium 134 L (137-145) mmol/L Potassium 3.9 (3.4-5.0) mmol/L Chloride 101 (98-107) mmol/L Carbon Dioxide 25 (22-30) mmol/L BUN 44 H D (9-20) mg/dL Creatinine 1.49 H 1.70 H (0.7-1.3) mg/dL Glucose 139 H (65-110) mg/dL Calcium 9.2 (8.4-10.2) mg/dL Adrenal panel 02/06/25 02/06/25 Range/Units 08:56 09:18 Sodium 134 L (137-145) mmol/L Potassium 3.9 (3.4-5.0) mmol/L Chloride 101 (98-107) mmol/L Carbon Dioxide 25 (22-30) mmol/L BUN 44 H D (9-20) mg/dL Creatinine 1.49 H 1.70 H (0.7-1.3) mg/dL Glucose 139 H (65-110) mg/dL Calcium 9.2 (8.4-10.2) mg/dL Total Bilirubin 0.9 (0.2-1.3) mg/dL AST 28 (17-59) U/L ALT 25 (6-50) U/L Alkaline Phosphatase 57 (38-126) U/L Total Protein 7.2 (6.3-8.2) g/dL Albumin 3.8 (3.5-5.1) g/dL All other labs normal.
--- NOTE | 2025-02-06 12:35 | PC.NURSE ---
This patient, Michael Salinas, was admitted to [facility] Room 331-01 at 1235. Patient/family oriented to hospital policies and general routines including ID bracelet, bed and alarms, visiting hours, pain management, procedures, bathroom and other care routines, personal items, smoking policy, room service/diet, and visiting hours. Information on how to activate the Rapid Response Team has been discussed. Patient/Family are encouraged to report perceived risks to care and to ask questions if they do not understand what they are told or what they should do.
--- NOTE | 2025-02-06 13:11 | P.HP_ITS ---
H&P: HPI History of Present Illness Date/Time: 02/06/25 13:11 Chief Complaint: Abdominal pain Narrative: 69-year-old male with past medical history of diabetes type 2, hyperlipidemia and hypertension presents the hospital for abdominal pain. He states that his umbilical hernia is red and swollen and painful to touch. Patient seen after OR. Patient states that pain is well controlled. He is worried about his insulin. In his nightly meds. Patient denies nausea vomiting fever chills. Lab work in the ED shows leukocytosis at 12, anemia at 13.5, sodium of 134, BUN of 44, creatinine of 1.7, GFR 40, glucose of 139, CRP of 3.1 UA positive for ketones, leukocyte esterase 2+, rbc's 21-50, wbc's 11-[address] squamous cells. Abdomen pelvis CT showed umbilical hernia with incarcerated fat and associated phlegmonous inflammatory changes involving both the herniated fat and adjacent subcutaneous tissues. Surgery was consulted and patient was taken to OR. Review of Systems Review of Systems: 12 systems were reviewed and are negativ e except for as per HPI. [facility] Past Medical History Medical History Diverticulitis Degenerative disc disease Bladder stones Kidney stones Hyperlipidemia Uncontrolled type 2 diabetes mellitus Hemoglobin A1c was 13% on 02/11/2020. Hypertension Surgical History Surgical History History of appendectomy History of lithotripsy History of cystoscopy Family History Family History Mother Family history of heart disease in male family member before age 55 Family history of elevated blood lipids Family history of diabetes mellitus in first degree relative Family history of obesity Family history of congestive heart failure Hypertension Sibling Family history of diabetes mellitus in first degree relative Family history of lupus erythematosus Mesothelioma Other Diabetes mellitus Family history of kidney disease Social History Social History Social History: Surrogate decision maker: Dennise Salinas, . Code status: Full code. Smoking status: Never smoker Second hand tobacco smoke exposure: Yes Alcohol intake: never Substance use: current Substance use type: marijuana Other substance usage details: MEDICAL CANNIBAS DAILY Do You Feel Safe in your Home?: Yes Lack of Transportation: No Lack of Food: Never True Current Housing: I Have Housing Concerned About Future Housing: No Difficulty Paying Gas/Electric Bills: No Difficulty Paying for Meds: No Currently Unemployed: No Education: Trade/Vocational Certificate Difficulty w/ Childcare or Family Care: No Living arrangements: with family Additional living arrangements comments: Lives with his and son in [place]. 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 Spiritual care concerns: No Meds Home Medications and Allergies Home Medications ?Medication ?Instructions ?Recorded ?Confirmed ?Type carvedilol 6.25 mg tablet 6.25 mg PO Q12H 02/11/20 02/06/25 History cyanocobalamin (vitamin B-12) 5,000 mcg PO DAILY 02/11/20 02/06/25 History 1,000 mcg tablet felodipine 10 mg tablet,extended 10 mg PO DAILY 02/11/20 02/06/25 History release 24 hr glucosamine-chondroitin 250 mg-200 1 tablet PO BID 02/11/20 02/06/25 History mg tablet (Osteo Bi-Flex) indapamide 1.25 mg tablet 1.25 mg PO BID 02/11/20 02/06/25 History pioglitazone 15 mg-metformin 850 15 - 850 tablet PO QPM 02/11/20 02/06/25 History mg tablet quinapril 40 mg tablet 40 mg PO BID 02/11/20 02/06/25 History blood sugar diagnostic (Blood #100 ea 02/12/20 02/06/25 Rx Glucose Test strips) blood-glucose meter (Blood Glucose #1 ea 02/12/20 02/06/25 Rx Monitoring kit) metformin 850 mg tablet 850 mg PO QPM #30 tabs 02/12/20 02/06/25 Rx (Glucophage) pen needle, diabetic 29 gauge x #90 ea 02/12/20 02/06/25 Rx 1/2 (Advocate Pen Needle) aspirin 81 mg tablet,delayed 81 mg PO DAILY 10/16/24 02/06/25 History release (Adult Low Dose Aspirin) insulin glargine 100 unit/mL (3 46 unit subcut QPM 10/16/24 02/06/25 History mL) subcutaneous pen (Lantus Solostar U-100 Insulin) lisinopril 40 mg tablet 40 mg PO BID 10/16/24 02/06/25 History rosuvastatin 20 mg tablet 20 mg PO DAILY 10/16/24 02/06/25 History semaglutide 1 mg/dose (4 mg/3 mL) 1 mg subcut WEEKLY 10/16/24 02/06/25 History subcutaneous pen injector (Ozempic) Allergies Allergy/AdvReac Type Severity Reaction Status Date / Time atorvastatin Allergy Unknown Unknown Verified 02/06/25 15:09 Sulfa (Sulfonamide Allergy Unknown RASH Verified 02/06/25 15:09 Antibiotics) sulfanilamide Allergy Unknown RASH Verified 02/06/25 15:09 Vital Signs Vital Signs - 24 hr 02/06/25 08:40 02/06/25 09:55 02/06/25 10:49 Temperature 97.6 F 98.5 F Pulse Rate 72 71 72 Respiratory Rate 16 18 18 Blood Pressure 97/64 L 105/72 121/63 Pulse Oximetry 98 98 100 02/06/25 11:34 Temperature Pulse Rate 76 Respiratory Rate 14 Blood Pressure 114/64 Pulse Oximetry 98 Exam Narrative: General: well appearing, appears stated age. HEENT: normocephalic, atraumatic. Mucous membranes moist. EOMI, PERRLA, bilateral sclera anicteric, no conjunctival injection. Neck supple without JVD, lymphadenopathy, or bruit. Respiratory: clear to ascultation bilaterally. No rales/rhonic/wheezes. Cardiovascular: Regular rate and rhythm, normal S1-S2 upon ascultation. No murmurs, rubs, or clicks. PMI is nondisplaced, capillary refill less than 3 second. Abdomen: Soft, round, no pulsatile masses, nondistended and nontender. No rebo und, no guarding. No CVA tenderness, no hepatosplenomegaly. Bowel sounds present to all four quadrants. No high pitch or tinkling sounds, resonant to percussion. Surgical dressing to abdomen Extremities: No cyanosis, clubbing, or edema present. Pulses are palpable 2/2. Active ROM to all four extremities. Neuro: Alert and orientated x 4. PERRLA. Cranial nerves 2-12 intact without focal deficit. Skin: Warm, dry, and intact, without rash, erythema, or lesion. Psych: pleasant, cooperative, normal speech, normal affect, no hallucinations, no dysarthia H&P: Results Labs Labs: Short CBC 02/06/25 Range/Units 08:56 WBC 12.0 H (4.5-10.0) K/mm3 Hgb 13.5 L (14.0-18.0) g/dL Hct 41.3 L (42.0-52.0) % Plt Count 236 (150-375) k/mm3 BMP 02/06/25 02/06/25 08:56 09:18 Sodium 134 L Potassium 3.9 Chloride 101 Carbon Dioxide 25 BUN 44 H D Creatinine 1.49 H 1.70 H Glucose 139 H Calcium 9.2 Liver Function 02/06/25 Range/Units 08:56 Total Bilirubin 0.9 (0.2-1.3) mg/dL AST 28 (17-59) U/L ALT 25 (6-50) U/L Alkaline Phosphatase 57 (38-126) U/L Albumin 3.8 (3.5-5.1) g/dL Urine 02/06/25 Range/Units 08:59 Urine Color Dark yellow (Yellow) Urine Appearance Clear (Clear) Urine pH 5.5 (5.0-9.0) Ur Specific [place] 1.019 (1.001-1.035) Urine Protein Trace (Negative) mg/dL Urine Glucose (UA) Negative (Negative) mg/dL Assessment and Plan Assessment and plan (1) Incarcerated umbilical hernia: Code(s): K42.0 - Umbilical hernia with obstruction, without gangrene Status: Acute Assessment and Plan: Surgery consulted plan for OR today Okay for clear liquid diet after surgery Pain control management surgery (2) Cellulitis: Code(s): L03.90 - Cellulitis, unspecified Status: Acute Assessment and Plan: IV Zosyn and vancomycin Blood cultures pending (3) Diabetes: Code(s): E11.9 - Type 2 diabetes mellitus without complications Status: Acute Assessment and Plan: A1c pending SSI Will hold Lantus for tonight due to patient being NPO today, restart for tomorrow Accu-Cheks a.c. HS (4) Hypertension: Code(s): I10 - Essential (primary) hypertension Status: Acute Assessment and Plan: Holding lisinopril due to soft pressures Quality VTE Prophylaxis VTE prophylaxis: mechanical ordered and pharmacologic ordered Hospitalist MIPS Advance Care Plan I have confirmed that the patient's Advanced Care Plan is present, code status is documented, or surrogate decision maker is listed in patient medical record.: Yes Medication Reconciliation I have utilized all available resources to obtain, update and review the patients current medications (includes all prescriptions, OTC, herbals, cannabis, and nutritional supplements).: Yes
[2025-02-06] MEDS: SODIUM CHLORIDE 0.9% IV 1,000 ML 125 ML IV CONT (14:06)
[2025-02-06] MEDS: LACTATED RINGERS 1,000 ML 30 ML IV CONT ×2 (14:10→17:08)
[2025-02-06] MEDS: PIPERACILLIN/TAZOBACTAM SOD 3.375 GM in SODIUM CHLORIDE 0.9% IV 50 ML 100 ML IVPB (14:30)
--- NOTE | 2025-02-06 15:19 | P.PNAN_ITS ---
Anes - Initial Pre Proc Eval Procedure: Operation Date: 02/06/25 15:30 Proposed Procedures p Open Repair Incarcerated Umbilical Hernia - Kamaljit Gonzalez MD Date/Time: 02/06/25 15:19 Surgeon: Aure Manrique MD Pre Op Diagnosis: Abdominal Hernia/Cellulitis Patient Data Age: 69 Gender: M Height: 1.65 m Weight: 89.4 kg Last Vital Signs Temp 97.1 F L 02/06/25 14:30 Pulse 72 02/06/25 14:30 Resp 16 02/06/25 14:30 BP 111/63 02/06/25 14:30 Pulse Ox 99 02/06/25 14:30 O2 Del Method Room Air 02/06/25 14:30 Allergies Allergy/AdvReac Type Severity Reaction Status Date / Time atorvastatin Allergy Unknown Unknown Verified 02/06/25 15:09 Sulfa (Sulfonamide Allergy Unknown RASH Verified 02/06/25 15:09 Antibiotics) sulfanilamide Allergy Unknown RASH Verified 02/06/25 15:09 Home Medications ?Medication ?Instructions ?Recorded ?Confirmed ?Type carvedilol 6.25 mg tablet 6.25 mg PO Q12H 02/11/20 10/24/24 History cyanocobalamin (vitamin B-12) 5,000 mcg PO DAILY 02/11/20 10/24/24 History 1,000 mcg tablet felodipine 10 mg tablet,extended 10 mg PO DAILY 02/11/20 10/24/24 History release 24 hr glucosamine-chondroitin 250 mg-200 1 tablet PO BID 02/11/20 10/24/24 History mg tablet (Osteo Bi-Flex) indapamide 1.25 mg tablet 1.25 mg PO BID 02/11/20 10/24/24 History pioglitazone 15 mg-metformin 850 15 - 850 tablet PO QPM 02/11/20 10/16/24 History mg tablet quinapril 40 mg tablet 40 mg PO BID 02/11/20 10/16/24 History blood sugar diagnostic (Blood #100 ea 02/12/20 Rx Glucose Test strips) blood-glucose meter (Blood Glucose #1 ea 02/12/20 Rx Monitoring kit) metformin 850 mg tablet 850 mg PO QPM #30 tabs 02/12/20 10/24/24 Rx (Glucophage) pen needle, diabetic 29 gauge x #90 ea 02/12/20 Rx 1/2 (Advocate Pen Needle) aspirin 81 mg tablet,delayed 81 mg PO DAILY 10/16/24 10/24/24 History release (Adult Low Dose Aspirin) insulin glargine 100 unit/mL (3 46 unit subcut QPM 10/16/24 10/24/24 History mL) subcutaneous pen (Lantus Solostar U-100 Insulin) lisinopril 40 mg tablet 40 mg PO BID 10/16/24 10/24/24 History rosuvastatin 20 mg tablet 20 mg PO DAILY 10/16/24 10/24/24 History semaglutide 1 mg/dose (4 mg/3 mL) 1 mg subcut WEEKLY 10/16/24 10/24/24 History subcutaneous pen injector (Ozempic) Laboratory Tests 02/06/25 02/06/25 02/06/25 08:55 08:56 08:59 WBC 12.0 H K/mm3 (4.5-10.0) RBC 4.57 L M/mm3 (4.6-6.20) Hgb 13.5 L g/dL (14.0-18.0) Hct 41.3 L % (42.0-52.0) MCV 90.4 fl (80-100) MCH 29.5 pg (26-34) MCHC 32.7 g/dl (32-36) RDW 13.5 % (11.5-14.5) Plt Count 236 k/mm3 (150-375) MPV 10.9 H fl (7.4-10.4) Immature Gran % (Auto) 0.5 % (0-0.5) Neut % (Auto) 73.3 H % (45.5-73.1) Lymph % (Auto) 13.7 L % (18.3-44.2) Person % (Auto) 8.7 H % (2.6-8.5) Eos % (Auto) 3.5 % (0-4.4) Baso % (Auto) 0.3 % (0.2-1.2) Lymph # (Auto) 1.65 K/mm3 (0.9-3.2) Person # (Auto) 1.1 H K/mm3 (0.1-0.6) Eos # (Auto) 0.4 H K/mm3 (0-0.3) Baso # (Auto) 0.0 K/mm3 (0.0-0.1) Abs Immat Gran (auto) 0.06 H K/mm3 (0.00-0.031) Absolute Neuts (auto) 8.8 H K/mm3 (1.3-6.7) Absolute Nucleated RBC 0.000 K/mm3 (0.0-0.012) Nucleated RBC % 0.0 % (0.0-0.2) ESR 24 H mm/hr (0-20) PT 13.3 Seconds (11.1-14.7) INR 1.0 APTT 26.4 Seconds (22.3-36.8) Sodium 134 L mmol/L (137-145) Potassium 3.9 mmol/L (3.4-5.0) Chloride 101 mmol/L (98-107) Carbon Dioxide 25 mmol/L (22-30) Anion Gap 8 mmol/L (4-12) BUN 44 H D mg/dL (9-20) Creatinine 1.49 H mg/dL (0.7-1.3) Estim Creat Clear Calc 43 ml/min Estimated GFR 47 L (59 - ) Glucose 139 H mg/dL (65-110) POC Capillary Glucose Lactic Acid 1.0 mmol/L (0.7-2.0) Calcium 9.2 mg/dL (8.4-10.2) Total Bilirubin 0.9 mg/dL (0.2-1.3) AST 28 U/L (17-59) ALT 25 U/L (6-50) Alkaline Phosphatase 57 U/L (38-126) C-Reactive Protein 3.1 H mg/dL (<1.0) Total Protein 7.2 g/dL (6.3-8.2) Albumin 3.8 g/dL (3.5-5.1) Lipase 121 U/L (23-300) Urine Color Dark yellow (Yellow) Urine Appearance Clear (Clear) Urine pH 5.5 (5.0-9.0) Ur Specific [place] 1.019 (1.001-1.035) Urine Protein Trace mg/dL (Negative) Urine Glucose (UA) Negative mg/dL (Negative) Urine Ketones Trace H mg/dL (Negative) Ur Blood (Man) Negative (Negative) Urine Nitrate Negative (Negative) Urine Bilirubin Negative (Negative) Urine Urobilinogen 1.0 mg/dL (<2.0) Add Ur Microanalysis Reviewed Leukocyte Esterase Rfl 2+ H JUANCARLOS/UL (Negative) Urine RBC 21-50 H /hpf (0-2) Urine WBC 11-20 H /hpf (0-3) Ur Squamous Epith Cells Occasional /hpf (Few) Urine Bacteria None seen /hpf Urine Casts >20 Hyaline Casts Present /lpf (None) 02/06/25 02/06/25 02/06/25 09:18 10:12 14:51 WBC RBC Hgb Hct MCV MCH MCHC RDW Plt Count MPV Immature Gran % (Auto) Neut % (Auto) Lymph % (Auto) Person % (Auto) Eos % (Auto) Baso % (Auto) Lymph # (Auto) Person # (Auto) Eos # (Auto) Baso # (Auto) Abs Immat Gran (auto) Absolute Neuts (auto) Absolute Nucleated RBC Nucleated RBC % ESR PT INR APTT Sodium Potassium Chloride Carbon Dioxide Anion Gap BUN Creatinine 1.70 H mg/dL (0.8-1.5) Estim Creat Clear Calc 38 ml/min Estimated GFR 40 L (59 - ) Glucose POC Capillary Glucose 73 mg/dl (65-105) Lactic Acid 0.9 mmol/L (0.7-2.0) Calcium Total Bilirubin AST ALT Alkaline Phosphatase C-Reactive Protein Total Protein Albumin Lipase Urine Color Urine Appearance Urine pH Ur Specific [place] Urine Protein Urine Glucose (UA) Urine Ketones Ur Blood (Man) Urine Nitrate Urine Bilirubin Urine Urobilinogen Add Ur Microanalysis Leukocyte Esterase Rfl Urine RBC Urine WBC Ur Squamous Epith Cells Urine Bacteria Urine Casts Hyaline Casts Patient hx anesthesia problems: none Family hx anesthesia problems: none Results Review: All pre-operative results and documents have been reviewed as part of the pre- operative evaluation. [facility] Past Medical History Medical History Diverticulitis Degenerative disc disease Bladder stones Kidney stones Hyperlipidemia Uncontrolled type 2 diabetes mellitus Hemoglobin A1c was 13% on 02/11/2020. Hypertension Surgical History Surgical History History of appendectomy History of lithotripsy History of cystoscopy Family History Family History Mother Family history of heart disease in male family member before age 55 Family history of elevated blood lipids Family history of diabetes mellitus in first degree relative Family history of obesity Family history of congestive heart failure Hypertension Sibling Family history of diabetes mellitus in first degree relative Family history of lupus erythematosus Mesothelioma Other Diabetes mellitus Family history of kidney disease Social History Social History Social History: Surrogate decision maker: Dennise Salinas, . Code status: Full code. Smoking status: Never smoker Alcohol intake: never Substance use: current Substance use type: marijuana Other substance usage details: MEDICAL CANNIBAS DAILY Do You Feel Safe in your Home?: Yes Lack of Transportation: No Lack of Food: Never True Current Housing: I Have Housing Concerned About Future Housing: No Difficulty Paying Gas/Electric Bills: No Difficulty Paying for Meds: No Currently Unemployed: No Education: Trade/Vocational Certificate Difficulty w/ Childcare or Family Care: No Living arrangements: with family Additional living arrangements comments: Lives with his and son in [place]. 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 Spiritual care concerns: No Anes - Eval Final PreProcedure Day of Procedure 02/06/25 15:19 Patient weight: obese Lungs: normal air movement Airway: Mallampati scale class II and special considerations (Edentulous. ) Neurological: alert and oriented Last oral intake: >/= 8 hours ASA classification: III Emergent: yes Anesthetic plan: proceed Anesthesia type and monitoring: general ETT and standard monitoring Results Review: All pre-operative results and documents have been reviewed as part of the pre- operative evaluation. DM, CRI, cannabis smoker daily, now w inc umb hernia. Informed Consent: The patient's anesthetic plan and its attendant risks and benefits were discussed with the patient/family/POA. Questions were solicited and answers provided to the satisfaction of the patient/family/POA.
--- NOTE | 2025-02-06 15:21 | WPDHPUPDATE1 ---
History and Physical Update Update Date/Time: 02/06/25 15:21 History and Physical has been reviewed, including an updated exam of the patient. There are NO changes in the patient's condition. Risks, benefits, and alternatives have been discussed and questions answered. Patient agrees to proceed with procedure.
[2025-02-06] MEDS: LIDO 1%/EPINEPHRINE 1:100,000 50 ML VIAL 20 ML INFILTRATE (15:46)
[2025-02-06] MEDS: BUPivacaine HCL 0.5% 10 ML AMP 20 ML INFILTRATE (15:47)
--- NOTE | 2025-02-06 15:52 | S_PTH ---
PATIENT: Michael Salinas LOC: [id number] U#:[id number] AGE/SX: 69/M ROOM: 331 RE02/07/[address]: Macrina Hughes MD : 1955 BED: 01 DIS: 02/08/2025 SPEC #: [id number] RECD: 02/07/25 07:21 STATUS: BRIAN REBryanna #: [id number] NICO: 02/06/25 15:[address]: Kamaljit Gonzalez DEPT: [facility] Surgical RECD BY: Jojo Paul ENTERED: 02/07/25 07:22 SP TYPE: Surgical OTHR DR: Oksana Frausto, QIAN Manrique MD Tissues: A - Soft Tissue Procedures: Hematoxylin and Eosin Stain Gross and Microscopic Level 3
--- NOTE | 2025-02-06 17:03 | P.OP_ITS ---
Procedure Note - Detailed Date of Procedure 02/06/25 Pre-op Diagnosis Abdominal Hernia/Cellulitis Post-op Diagnosis Other (Strangulated umbilical hernia) Procedure Performed Open strangulated umbilical hernia repair without mesh Surgeon Kamaljit Gonzalez MD [employer] [facility] General Indications Patient is a 69-year-old gentleman who has had a longstanding umbilical hernia. For last 3 days he has noticed that the hernia is not reducible and started have worsening pain and some redness of the skin around the hernia. He had no nausea vomiting or symptoms to suggest a bowel obstruction. He presents to the emergency room and he appeared to have cellulitis of the skin around the umbilicus. CT scan abdomen pelvis was performed showing strangulated omentum within the umbilical hernia. The defect measured approximate 3.5cm in diameter on the CT scan. There was no bowel obstruction. He presents now for emergent open umbilical hernia repair without mesh. Findings Strangulated omentum within a 3.5cm umbilical hernia defect. Description of Procedure After informed consent was obtained patient brought to the operating room was placed supine position and general endotracheal anesthesia was administered. An orogastric tube was placed decompress the bladder. A time-out was then performed correctly identifying the patient as well as procedure to be performed. He was on scheduled IV antibiotics. I then made a midline incision curving it around the left side of the umbilicus. Dissection carried down through the subcutaneous tissue electrocautery. The hernia sac was encountered and I dissected the subcutaneous tissues away from the hernia sac on the left side. I then with electrocautery disconnected the dermis of the umbilicus from the hernia sac and then freed up the side of the hernia sac from the subcutaneous tissues. I then opened the hernia sac to identify some strangulated omentum. The hernia sac was then resected down to the level of the fascia and the hernia sac was sent to pathology for examination. I then proceeded to resect nonviable strangulated portion of the omentum. Pulled up on the omentum until I found viable appearing omentum and then placed a clamp across the omentum at this point. The strangulated nonviable omentum was then divided utilized electrocautery and then sent to pathology with the hernia sac for evaluation. I then ligated the clamped omentum which was viable with a 2-0 Vicryl suture. The omentum was then reduced back through the defect into the abdomen. I then placed my index finger through the defect into the abdomen and then swept underneath the anterior abdominal wall. There were some areas of preperitoneal fat which came all the way up to the edge of the fascial defect. I then under direct visualization dissected this off the undersurface anterior abdominal wall. I then proceeded to close the defect primarily without the use of any mesh. A running nonabsorbable 0V lock suture was then used to close the defect transversely. I also placed interrupted 0 Ethibond sutures widely for retention sutures on the closure with a running nonabsorbable V lock suture. The defect closed nicely without any tension. We then irrigated out the subcutaneous tissue sterile saline solution hemostasis was good. I then proceeded to inject 1% lidocaine mixed with 0.5% Marcaine with epinephrine around the fascial edges and the subcutaneous tissues for local anesthetic effect. I then close incision utilizing layers of interrupted 2-0 Vicryl sutures and this deeper subcutaneous tissues. The dermis of the umbilicus was tacked down to the deeper fascial structures with 3-0 Vicryl suture to recreate the inverted umbilicus. More superficial layer of interrupted 3-0 Vicryl sutures were then placed in the skin edges were approximated utilizing a running subcuticular 4 Monocryl suture. The incision was then cleaned and then skin glue was applied. A pressure dressing was applied and abdominal binder was placed. The patient tolerated the procedure well no complications. All sponges, needles, and instrument counts were correct at the end procedure. EBL was _25__cc. The patient was awakened and taken to recovery in stable and satisfactory condition. Implants None Estimated Blood Loss 25 Urine Output 250 Drains No Packing No Pathology Yes (Hernia sac and strangulated omentum to pathology) Complications No immediate complications Condition Stable Disposition PACU [facility] Billing Surgery - Charge Forward: Surgery Billing
[2025-02-06] MEDS: fentaNYL CITRATE INJ (*CRX) 100 MCG/2 ML VIAL 25 MCG IV PUSH ×4 (17:30→17:50)
[2025-02-06] MEDS: DOCUSATE SODIUM 100 MG CAPSULE PO (19:30)
[2025-02-06] MEDS: PIPERACILLIN/TAZOBACTAM SOD 2.25 GM in SODIUM CHLORIDE 0.9% IV 50 ML 100 ML IVPB (20:19)
[2025-02-06] MEDS: HYDROcodone/acetaminophen (*CRX) 5-325 MG TABLET 1 TAB PO (21:02)
[2025-02-06] MEDS: oxyCODONE HCL (*CRX) 5 MG TAB IR PO (23:27)
[2025-02-07 01:21] VITALS: BP 119/70; PULSE 69; RESP 18; TEMP 36.5; O2SAT 99
[2025-02-07] MEDS: PIPERACILLIN/TAZOBACTAM SOD 2.25 GM in SODIUM CHLORIDE 0.9% IV 50 ML 100 ML IVPB ×4 (02:28→20:45)
[2025-02-07] MEDS: SODIUM CHLORIDE 0.9% IV 1,000 ML 125 ML IV CONT (03:30)
[2025-02-07] MEDS: oxyCODONE HCL (*CRX) 5 MG TAB IR PO ×4 (03:35→22:34)
[2025-02-07 05:21] VITALS: BP 121/79; PULSE 71; RESP 18; TEMP 36.6; O2SAT 99
[2025-02-07] MEDS: MORPHINE SULFATE (*CRX) 2 MG/ML INJ IV PUSH (06:20)
[2025-02-07 06:31] LABS: Hematocrit 36.4 % (42.0-52.0); Hemoglobin 12.0 g/dL (14.0-18.0); Immature Granulocyte Percent A 0.5 % (0-0.5); Lymphocytes Absolute Auto 0.98 K/mm3 (0.9-3.2); Mean Corpuscular HGB Conc 33.0 g/dl (32-36); Mean Corpuscular Hemoglobin 30.2 pg (26-34); Mean Corpuscular Volume 91.5 fl (80-100); Nucleated Red Blood Cells Absolute Auto 0.000 K/mm3 (0.0-0.012); Nucleated Red Blood Cells Perc 0.0 % (0.0-0.2); Platelet Count Result 209 k/mm3 (150-375); Red Blood Count 3.98 M/mm3 (4.6-6.20); White Blood Count 12.7 K/mm3 (4.5-10.0)
[2025-02-07 06:53] LABS: Anion Gap 7 mmol/L (4-12); Blood Urea Nitrogen 20 mg/dL (9-20); Calcium 8.3 mg/dL (8.4-10.2); Carbon Dioxide 23 mmol/L (22-30); Chloride 106 mmol/L (98-107); Estimated CRCL calculation 66 ml/min; Estimated Glomerular Filt Rate > 60; Glucose 61 mg/dL (65-110); Potassium 3.8 mmol/L (3.4-5.0); Sodium 136 mmol/L (137-145)
[2025-02-07 08:03] LABS: Hemoglobin A1C 5.4 % (<5.7)
[2025-02-07] MEDS: ROSUVASTATIN 20 MG TABLET PO (08:38)
[2025-02-07] MEDS: DOCUSATE SODIUM 100 MG CAPSULE PO ×2 (08:38→17:10)
[2025-02-07] MEDS: ENOXAPARIN 40 MG/0.4 ML SYRINGE SUB-Q (08:38)
[2025-02-07] MEDS: FAMOTIDINE 20 MG/2 ML VIAL IV PUSH ×2 (08:39→20:43)
[2025-02-07] MEDS: INDAPAMIDE 1.25 MG TABLET PO ×2 (08:39→17:46)
[2025-02-07] MEDS: ASPIRIN 81 MG ENTERIC TABLET PO (08:40)
[2025-02-07] MEDS: FELODIPINE 5 MG TAB CR 10 MG PO (08:41)
[2025-02-07 09:21] VITALS: BP 133/71; PULSE 86; RESP 18; TEMP 36.7; O2SAT 96
--- NOTE | 2025-02-07 13:14 | P.PNAN_ITS ---
Anes - Prog Note Post-Op Date/Time: 02/07/25 13:14 Cardiovascular status: normal Respiratory status: normal Airway patency: baseline Mental status: baseline Post-Op hydration status: normal Vital Signs: Last Vital Signs Temp 36.7 C 02/07/25 09:21 Pulse 86 02/07/25 09:21 Resp 18 02/07/25 09:21 BP 133/71 02/07/25 09:21 Pulse Ox 96 02/07/25 09:21 O2 Del Method Room Air 02/06/25 20:49 O2 Flow Rate 8 02/06/25 17:25 Pain Score (VAS): 2 I/O: Intake & Output 02/06/25 02/07/25 02/07/25 23:59 07:59 15:59 Intake Total 550 1585.4 120 Output Total 250 900 Balance 300 685.4 120 Laboratory Tests 02/07/25 06:10 02/07/25 06:10 02/06/25 02/06/25 02/06/25 14:51 17:48 20:53 WBC RBC Hgb Hct MCV MCH MCHC RDW Plt Count MPV Immature Gran % (Auto) Neut % (Auto) Lymph % (Auto) [place] % (Auto) Eos % (Auto) Baso % (Auto) Lymph # (Auto) [place] # (Auto) Eos # (Auto) Baso # (Auto) Abs Immat Gran (auto) Absolute Neuts (auto) Absolute Nucleated RBC Nucleated RBC % Sodium Potassium Chloride Carbon Dioxide Anion Gap BUN Creatinine Estim Creat Clear Calc Estimated GFR Glucose POC Capillary Glucose 73 97 85 Hemoglobin A1c Calcium 02/07/25 02/07/25 02/07/25 06:10 07:54 11:19 WBC 12.7 H RBC 3.98 L Hgb 12.0 L Hct 36.4 L MCV 91.5 MCH 30.2 MCHC 33.0 RDW 13.4 Plt Count 209 MPV 10.9 H Immature Gran % (Auto) 0.5 Neut % (Auto) 74.9 H Lymph % (Auto) 7.7 L [place] % (Auto) 9.4 H Eos % (Auto) 7.3 H Baso % (Auto) 0.2 Lymph # (Auto) 0.98 [place] # (Auto) 1.2 H Eos # (Auto) 0.9 H Baso # (Auto) 0.0 Abs Immat Gran (auto) 0.06 H Absolute Neuts (auto) 9.5 H Absolute Nucleated RBC 0.000 Nucleated RBC % 0.0 Sodium 136 L Potassium 3.8 Chloride 106 Carbon Dioxide 23 Anion Gap 7 BUN 20 D Creatinine 0.95 Estim Creat Clear Calc 66 Estimated GFR > 60 Glucose 61 L POC Capillary Glucose 65 137 H Hemoglobin A1c 5.4 Calcium 8.3 L Patient Feedback: Patient satisfied with anesthetic care.
--- NOTE | 2025-02-07 13:16 | PM.PNGS ---
Progress Note: A&P Assessment and Plan (1) Incarcerated umbilical hernia: Code(s): K42.0 - Umbilical hernia with obstruction, without gangrene Status: Acute Assessment and Plan: POD 1 s/p open incarcerated umbilical repair. Patient doing well. Tolerating full diet, ambulating independently, pain managed with oral narcotics. Surrounding erythema still present. Patient would benefit from one more day of IV antibiotics. Will reassess with serial abdominal exams and plan for hopeful discharge tomorrow on oral antibiotics. Plan Discussed patient's case and plan of care with Dr. Gonzalez. Subjective Subjective Date/Time Seen: 02/07/25 13:16 Post Op day: 1 Patient reports: no new complaints Interval history: Patient is doing well today. Tolerating full diet without nausea or vomiting. Ambulating to and from the restroom. Wearing binder. No nausea or vomiting. No BM yet. Exam GI: Inspection: non-distended Auscultation: normal bowel sounds Other: Wound is clean and dry with no dehiscence, fluctuance, or signs of skin necrosis. Erythema still present surrounding the area with increased warmth. Small blister to middle of incision near umbilicus with serous fluid. Objective Data Vital Signs Vital Signs: Vital Signs - 24 hr 02/06/25 13:59 02/06/25 14:30 02/06/25 17:08 Temperature 98.2 F 97.1 F L 99.5 F Pulse Rate 77 72 79 Respiratory Rate 18 16 19 Blood Pressure 110/59 L 111/63 97/59 L Pulse Oximetry 98 99 99 Oxygen Delivery Room Air Simple Face Mask Oxygen Flow Rate 8 02/06/25 17:25 02/06/25 17:40 02/06/25 17:55 Temperature 99.0 F Pulse Rate 80 78 72 Respiratory Rate 16 16 16 Blood Pressure 113/78 110/73 114/75 Pulse Oximetry 95 95 95 Oxygen Delivery Simple Face Mask Room Air Room Air Oxygen Flow Rate 8 02/06/25 18:25 02/06/25 18:57 02/06/25 19:10 Temperature 96.3 F L 96.3 F L 96.6 F L Pulse Rate 71 70 71 Respiratory Rate 18 18 18 Blood Pressure 116/68 110/65 100/55 L Pulse Oximetry 93 95 95 Oxygen Delivery Oxygen Flow Rate 02/06/25 20:21 02/06/25 20:49 02/06/25 23:24 Temperature 97.6 F Pulse Rate 73 70 Respiratory Rate 18 Blood Pressure 115/71 Pulse Oximetry 98 Oxygen Delivery Room Air Oxygen Flow Rate 02/07/25 01:21 02/07/25 05:21 02/07/25 08:00 Temperature 97.7 F 97.9 F Pulse Rate 69 71 Respiratory Rate 18 18 Blood Pressure 119/70 121/79 Pulse Oximetry 99 99 Oxygen Delivery Room Air Oxygen Flow Rate 02/07/25 09:21 Temperature 98.1 F Pulse Rate 86 Respiratory Rate 18 Blood Pressure 133/71 Pulse Oximetry 96 Oxygen Delivery Oxygen Flow Rate Intake/Output Intake/Output: Intake & Output 02/04/25 02/05/25 02/06/25 02/07/25 23:59 23:59 23:59 23:59 Intake Total 4514.6 1705.4 Output Total 800 900 Balance 3714.6 805.4 Meds/Results Medications: Active Medications Generic Name Dose Route Start Last Admin Trade Name Freq PRN Reason Stop Dose Admin Acetaminophen 1,000 mg 02/06/25 16:57 Acetaminophen 500 Mg Tablet PO Q6H PRN Mild Pain (1-3) or Fever Hydrocodone Bitart/Acetaminophen 1 tab 02/06/25 16:57 02/06/25 21:02 Hydrocodone/Acetaminophen (*Crx) 5-325 Mg Tablet PO 1 tab Q4H PRN Administration Pain Rated 4-6 Aspirin 81 mg 02/07/25 09:00 02/07/25 08:40 Aspirin 81 Mg Enteric Tablet PO 81 mg DAILY SUKHDEV Administration Carvedilol 6.25 mg 02/06/25 22:30 02/07/25 08:39 Carvedilol 6.25 Mg Tablet PO 6.25 mg Q12HR SUKHDEV Administration Dextrose 12.5 gm 02/06/25 22:31 Dextrose 50% 25 Gm/50 Ml Syringe IV PUSH PRN PRN Hypoglycemia Protocol Docusate Sodium 100 mg 02/06/25 17:00 02/07/25 08:38 Docusate Sodium 100 Mg Capsule PO 100 mg BID SUKHDEV Administration Enoxaparin Sodium 40 mg 02/07/25 09:00 02/07/25 08:38 Enoxaparin 40 Mg/0.4 Ml Syringe SUB-Q 40 mg DAILY SUKHDEV Administration Famotidine 20 mg 02/06/25 21:00 02/07/25 08:39 Famotidine 20 Mg/2 Ml Vial IV PUSH 20 mg Q12HR SUKHDEV Administration Felodipine 10 mg 02/07/25 09:00 02/07/25 08:41 Felodipine 5 Mg Tab Cr PO 10 mg QAM SUKHDEV Administration Fentanyl Citrate 25 mcg 02/06/25 15:20 02/06/25 17:50 Fentanyl Citrate Inj (*Crx) 100 Mcg/2 Ml Vial IV PUSH 25 mcg Q2M PRN Administration Pain Glucagon 1 mg 02/06/25 22:31 Glucagon For Inj 1 Mg Vial IM PRN PRN Hypoglycemia Protocol Glucose 15 gm 02/06/25 22:31 Glucose Oral Gel 15 Gm Of Glucse In 37.5 Gm Tube PO PRN PRN Hypoglycemia Protocol Piperacillin Sod/Tazobactam 50 mls @ 100 mls/hr 02/06/25 20:00 02/07/25 08:39 Sod 2.25 gm/ Sodium Chloride IVPB 100 mls/hr Q6H SUKHDEV Administration Lactated Ringer's 1,000 mls @ 30 mls/hr 02/06/25 15:20 02/06/25 17:08 Lr - Lactated Ringers Iv IV CONT Infused .Q24H SUKHDEV Infusion Lactated Ringer's 1,000 mls @ 30 mls/hr 02/06/25 15:20 02/06/25 18:00 Lr - Lactated Ringers Iv IV CONT Infused .Q24H SUKHDEV Infusion Dextrose 1,000 mls @ 100 mls/hr 02/06/25 22:31 Dextrose 5% 1,000 Ml IVPB PRN PRN Hypoglycemia Protocol Indapamide 1.25 mg 02/07/25 09:00 02/07/25 08:39 Indapamide 1.25 Mg Tablet PO 1.25 mg BID SUKHDEV Administration Insulin Aspart 2 - 5 units 02/07/25 08:00 02/07/25 11:47 Insulin Aspart (*Bkc) 100 Units/Ml SUB-Q Not Given TIDWM REPLACED BY [facility] Protocol Insulin Aspart 1 - 2 units 02/06/25 22:35 02/06/25 23:23 Insulin Aspart (*Bkc) 100 Units/Ml SUB-Q Not Given HS REPLACED BY [facility] Protocol Insulin Glargine 46 units 02/07/25 18:00 Insulin Glargine (*Bkc) 100 Units/Ml SUB-Q QPM REPLACED BY [facility] Miscellaneous Information 1 each 02/06/25 00:01 Pepcid Renal Dose Rec 20mg Once Daily XX 03/08/25 00:00 CLARIFY SUKHDEV Morphine Sulfate 2 mg 02/06/25 13:23 02/07/25 06:20 Morphine Sulfate (*Crx) 2 Mg/Ml Inj IV PUSH 2 mg Q4H PRN Administration Pain Rated 7-10 Naloxone HCl 0.1 mg 02/06/25 13:23 Naloxone Hcl 0.4 Mg/Ml Vial IV PUSH Q2M PRN Opiate Reversal Ondansetron HCl 4 mg 02/06/25 10:44 Ondansetron Inj 4 Mg/2 Ml Vial IV PUSH Q4H PRN Nausea Ondansetron HCl 4 mg 02/06/25 15:20 Ondansetron Inj 4 Mg/2 Ml Vial IV PUSH ONCE PRN Nausea Oxycodone HCl 5 mg 02/06/25 16:57 02/07/25 11:02 Oxycodone Hcl (*Crx) 5 Mg Tab Ir PO 5 mg Q4H PRN Administration Pain Rated 7-10 Rosuvastatin Calcium 20 mg 02/07/25 09:00 02/07/25 08:38 Rosuvastatin 20 Mg Tablet PO 20 mg DAILY SUKHDEV Administration Radiology Results: ITS Impressions Abdomen/Pelvis CT 02/06/25 09:28 IMPRESSION: 1. Umbilical hernia with incarcerated fat and associated phlegmonous inflammatory changes involving both the herniated fat and adjacent subcutaneous tissues. Recommend surgical evaluation due to evidence of fat incarceration and evolving inflammation. Labs Labs: Laboratory Results - last 24 hr 02/06/25 02/06/25 02/06/25 14:51 17:48 20:53 WBC RBC Hgb Hct MCV MCH MCHC RDW Plt Count MPV Immature Gran % (Auto) Neut % (Auto) Lymph % (Auto) [place] % (Auto) Eos % (Auto) Baso % (Auto) Lymph # (Auto) [place] # (Auto) Eos # (Auto) Baso # (Auto) Abs Immat Gran (auto) Absolute Neuts (auto) Absolute Nucleated RBC Nucleated RBC % Sodium Potassium Chloride Carbon Dioxide Anion Gap BUN Creatinine Estim Creat Clear Calc Estimated GFR Glucose POC Capillary Glucose 73 97 85 Hemoglobin A1c Calcium 02/07/25 02/07/25 02/07/25 06:10 07:54 11:19 WBC 12.7 H RBC 3.98 L Hgb 12.0 L Hct 36.4 L MCV 91.5 MCH 30.2 MCHC 33.0 RDW 13.4 Plt Count 209 MPV 10.9 H Immature Gran % (Auto) 0.5 Neut % (Auto) 74.9 H Lymph % (Auto) 7.7 L [place] % (Auto) 9.4 H Eos % (Auto) 7.3 H Baso % (Auto) 0.2 Lymph # (Auto) 0.98 [place] # (Auto) 1.2 H Eos # (Auto) 0.9 H Baso # (Auto) 0.0 Abs Immat Gran (auto) 0.06 H Absolute Neuts (auto) 9.5 H Absolute Nucleated RBC 0.000 Nucleated RBC % 0.0 Sodium 136 L Potassium 3.8 Chloride 106 Carbon Dioxide 23 Anion Gap 7 BUN 20 D Creatinine 0.95 Estim Creat Clear Calc 66 Estimated GFR > 60 Glucose 61 L POC Capillary Glucose 65 137 H Hemoglobin A1c 5.4 Calcium 8.3 L
[2025-02-07 13:21] VITALS: BP 103/70; PULSE 81; RESP 18; TEMP 37.3; O2SAT 95
--- NOTE | 2025-02-07 14:29 | P.PNIM_ITS ---
Progress Note: A&P Assessment and Plan (1) Incarcerated umbilical hernia: Code(s): K42.0 - Umbilical hernia with obstruction, without gangrene Status: Acute Assessment and Plan: Surgery consulted plan for OR today Okay for clear liquid diet after surgery Pain control management surgery (2) Cellulitis: Code(s): L03.90 - Cellulitis, unspecified Status: Acute Assessment and Plan: IV Zosyn and vancomycin Blood cultures pending (3) Diabetes: Code(s): E11.9 - Type 2 diabetes mellitus without complications Status: Acute Assessment and Plan: A1c pending SSI Will hold Lantus for tonight due to patient being NPO today, restart for tomorrow Accu-Cheks a.c. HS (4) Hypertension: Code(s): I10 - Essential (primary) hypertension Status: Acute Assessment and Plan: Holding lisinopril due to soft pressures Plan patient was seen by surgery service and was taken to OR emergently s/p repair incarcerated umbical hernia POD# 1, pain is feeling better and had full liquid breakfast and tolerating, seen by surgery service today recommended to monitor patient one more day IV abx his cellulitis, will monitor and possibly discharge patient tomorrow. Subjective Date/time seen: 02/07/25 14:29 Interval history: Abdominal pain Narrative: 69-year-old male with past medical history of diabetes type 2, hyperlipidemia and hypertension presents the hospital for abdominal pain. He states that his umbilical hernia is red and swollen and painful to touch. Patient seen after OR. Patient states that pain is well controlled. He is worried about his insulin. In his nightly meds. Patient denies nausea vomiting fever chills. Lab work in the ED shows leukocytosis at 12, anemia at 13.5, sodium of 134, BUN of 44, creatinine of 1.7, GFR 40, glucose of 139, CRP of 3.1 UA positive for ketones, leukocyte esterase 2+, rbc's 21-50, wbc's 11-[address] squamous cells. Abdomen pelvis CT showed umbilical hernia with incarcerated fat and associated phlegmonous inflammatory changes involving both the herniated fat and adjacent subcutaneous tissues. Surgery was consulted and patient was taken to OR. patient was seen by surgery service and was taken to OR emergently s/p repair incarcerated umbical hernia POD# 1, pain is feeling better and had full liquid breakfast and tolerating, seen by surgery service today recommended to monitor patient one more day IV abx his cellulitis, will monitor and possibly discharge patient tomorrow. Review of Systems Review of Systems: 12 systems were reviewed and are negativ e except for as per HPI. Exam Narrative: Patient is comfortable, NAD HEENT: eyes are clear and none icteric LUNGS:CTA HEART: RR S1S2 ABD: BS+, Soft and nontender Lower extremities: no edema SKIN: nonjaundiced Neuro: grossly intact. Objective Data Vital Signs Vital Signs: Vital Signs - 24 hr 02/06/25 14:30 02/06/25 17:08 02/06/25 17:25 Temperature 36.2 C L 37.5 C Pulse Rate 72 79 80 Respiratory Rate 16 19 16 Blood Pressure 111/63 97/59 L 113/78 Pulse Oximetry 99 99 95 Oxygen Delivery Room Air Simple Face Mask Simple Face Mask Oxygen Flow Rate 8 8 02/06/25 17:40 02/06/25 17:55 02/06/25 18:25 Temperature 37.2 C 35.7 C L Pulse Rate 78 72 71 Respiratory Rate 16 16 18 Blood Pressure 110/73 114/75 116/68 Pulse Oximetry 95 95 93 Oxygen Delivery Room Air Room Air Oxygen Flow Rate 02/06/25 18:57 02/06/25 19:10 02/06/25 20:21 Temperature 35.7 C L 35.9 C L 36.4 C Pulse Rate 70 71 73 Respiratory Rate 18 18 18 Blood Pressure 110/65 100/55 L 115/71 Pulse Oximetry 95 95 98 Oxygen Delivery Oxygen Flow Rate 02/06/25 20:49 02/06/25 23:24 02/07/25 01:21 Temperature 36.5 C Pulse Rate 70 69 Respiratory Rate 18 Blood Pressure 119/70 Pulse Oximetry 99 Oxygen Delivery Room Air Oxygen Flow Rate 02/07/25 05:21 02/07/25 08:00 02/07/25 09:21 Temperature 36.6 C 36.7 C Pulse Rate 71 86 Respiratory Rate 18 18 Blood Pressure 121/79 133/71 Pulse Oximetry 99 96 Oxygen Delivery Room Air Oxygen Flow Rate Intake/Output Intake/Output: Intake & Output 02/04/25 02/05/25 02/06/25 02/07/25 23:59 23:59 23:59 23:59 Intake Total 4514.6 1705.4 Output Total 800 900 Balance 3714.6 805.4 Meds/Results Medications: Active Medications Generic Name Dose Route Start Last Admin Trade Name Weroq PRN Reason Stop Dose Admin Acetaminophen 1,000 mg 02/06/25 16:57 Acetaminophen 500 Mg Tablet PO Q6H PRN Mild Pain (1-3) or Fever Hydrocodone Bitart/Acetaminophen 1 tab 02/06/25 16:57 02/06/25 21:02 Hydrocodone/Acetaminophen (*Crx) 5-325 Mg Tablet PO 1 tab Q4H PRN Administration Pain Rated 4-6 Aspirin 81 mg 02/07/25 09:00 02/07/25 08:40 Aspirin 81 Mg Enteric Tablet PO 81 mg DAILY SUKHDEV Administration Carvedilol 6.25 mg 02/06/25 22:30 02/07/25 08:39 Carvedilol 6.25 Mg Tablet PO 6.25 mg Q12HR SUKHDEV Administration Dextrose 12.5 gm 02/06/25 22:31 Dextrose 50% 25 Gm/50 Ml Syringe IV PUSH PRN PRN Hypoglycemia Protocol Docusate Sodium 100 mg 02/06/25 17:00 02/07/25 08:38 Docusate Sodium 100 Mg Capsule PO 100 mg BID SUKHDEV Administration Enoxaparin Sodium 40 mg 02/07/25 09:00 02/07/25 08:38 Enoxaparin 40 Mg/0.4 Ml Syringe SUB-Q 40 mg DAILY SUKHDEV Administration Famotidine 20 mg 02/06/25 21:00 02/07/25 08:39 Famotidine 20 Mg/2 Ml Vial IV PUSH 20 mg Q12HR SUKHDEV Administration Felodipine 10 mg 02/07/25 09:00 02/07/25 08:41 Felodipine 5 Mg Tab Cr PO 10 mg QAM SUKHDEV Administration Fentanyl Citrate 25 mcg 02/06/25 15:20 02/06/25 17:50 Fentanyl Citrate Inj (*Crx) 100 Mcg/2 Ml Vial IV PUSH 25 mcg Q2M PRN Administration Pain Glucagon 1 mg 02/06/25 22:31 Glucagon For Inj 1 Mg Vial IM PRN PRN Hypoglycemia Protocol Glucose 15 gm 02/06/25 22:31 Glucose Oral Gel 15 Gm Of Glucse In 37.5 Gm Tube PO PRN PRN Hypoglycemia Protocol Piperacillin Sod/Tazobactam 50 mls @ 100 mls/hr 02/06/25 20:00 02/07/25 08:39 Sod 2.25 gm/ Sodium Chloride IVPB 100 mls/hr Q6H SUKHDEV Administration Lactated Ringer's 1,000 mls @ 30 mls/hr 02/06/25 15:20 02/06/25 17:08 Lr - Lactated Ringers Iv IV CONT Infused .Q24H SUKHDEV Infusion Lactated Ringer's 1,000 mls @ 30 mls/hr 02/06/25 15:20 02/06/25 18:00 Lr - Lactated Ringers Iv IV CONT Infused .Q24H SUKHDEV Infusion Dextrose 1,000 mls @ 100 mls/hr 02/06/25 22:31 Dextrose 5% 1,000 Ml IVPB PRN PRN Hypoglycemia Protocol Indapamide 1.25 mg 02/07/25 09:00 02/07/25 08:39 Indapamide 1.25 Mg Tablet PO 1.25 mg BID SUKHDEV Administration Insulin Aspart 2 - 5 units 02/07/25 08:00 02/07/25 11:47 Insulin Aspart (*Bkc) 100 Units/Ml SUB-Q Not Given TIDWM [facility] Protocol Insulin Aspart 1 - 2 units 02/06/25 22:35 02/06/25 23:23 Insulin Aspart (*Bkc) 100 Units/Ml SUB-Q Not Given HS [facility] Protocol Insulin Glargine 46 units 02/07/25 18:00 Insulin Glargine (*Bkc) 100 Units/Ml SUB-Q QPM [facility] Miscellaneous Information 1 each 02/06/25 00:01 Pepcid Renal Dose Rec 20mg Once Daily XX 03/08/25 00:00 CLARIFY [facility] Morphine Sulfate 2 mg 02/06/25 13:23 02/07/25 06:20 Morphine Sulfate (*Crx) 2 Mg/Ml Inj IV PUSH 2 mg Q4H PRN Administration Pain Rated 7-10 Naloxone HCl 0.1 mg 02/06/25 13:23 Naloxone Hcl 0.4 Mg/Ml Vial IV PUSH Q2M PRN Opiate Reversal Ondansetron HCl 4 mg 02/06/25 10:44 Ondansetron Inj 4 Mg/2 Ml Vial IV PUSH Q4H PRN Nausea Ondansetron HCl 4 mg 02/06/25 15:20 Ondansetron Inj 4 Mg/2 Ml Vial IV PUSH ONCE PRN Nausea Oxycodone HCl 5 mg 02/06/25 16:57 02/07/25 11:02 Oxycodone Hcl (*Crx) 5 Mg Tab Ir PO 5 mg Q4H PRN Administration Pain Rated 7-10 Rosuvastatin Calcium 20 mg 02/07/25 09:00 02/07/25 08:38 Rosuvastatin 20 Mg Tablet PO 20 mg DAILY SUKHDEV Administration Radiology Results: ITS Impressions Abdomen/Pelvis CT 02/06/25 09:28 IMPRESSION: 1. Umbilical hernia with incarcerated fat and associated phlegmonous inflammatory changes involving both the herniated fat and adjacent subcutaneous tissues. Recommend surgical evaluation due to evidence of fat incarceration and evolving inflammation. Labs Labs: Laboratory Results - last 24 hr 02/06/25 02/06/25 02/06/25 14:51 17:48 20:53 WBC RBC Hgb Hct MCV MCH MCHC RDW Plt Count MPV Immature Gran % (Auto) Neut % (Auto) Lymph % (Auto) [place] % (Auto) Eos % (Auto) Baso % (Auto) Lymph # (Auto) [place] # (Auto) Eos # (Auto) Baso # (Auto) Abs Immat Gran (auto) Absolute Neuts (auto) Absolute Nucleated RBC Nucleated RBC % Sodium Potassium Chloride Carbon Dioxide Anion Gap BUN Creatinine Estim Creat Clear Calc Estimated GFR Glucose POC Capillary Glucose 73 97 85 Hemoglobin A1c Calcium 02/07/25 02/07/25 02/07/25 06:10 07:54 11:19 WBC 12.7 H RBC 3.98 L Hgb 12.0 L Hct 36.4 L MCV 91.5 MCH 30.2 MCHC 33.0 RDW 13.4 Plt Count 209 MPV 10.9 H Immature Gran % (Auto) 0.5 Neut % (Auto) 74.9 H Lymph % (Auto) 7.7 L [place] % (Auto) 9.4 H Eos % (Auto) 7.3 H Baso % (Auto) 0.2 Lymph # (Auto) 0.98 [place] # (Auto) 1.2 H Eos # (Auto) 0.9 H Baso # (Auto) 0.0 Abs Immat Gran (auto) 0.06 H Absolute Neuts (auto) 9.5 H Absolute Nucleated RBC 0.000 Nucleated RBC % 0.0 Sodium 136 L Potassium 3.8 Chloride 106 Carbon Dioxide 23 Anion Gap 7 BUN 20 D Creatinine 0.95 Estim Creat Clear Calc 66 Estimated GFR > 60 Glucose 61 L POC Capillary Glucose 65 137 H Hemoglobin A1c 5.4 Calcium 8.3 L Quality VTE Prophylaxis VTE prophylaxis: mechanical ordered and pharmacologic ordered
[2025-02-07 20:43] VITALS: PULSE 83
[2025-02-07 22:00] VITALS: BP 102/68; PULSE 82; RESP 18; TEMP 36.6; O2SAT 94
[2025-02-08] MEDS: CALCIUM GLUC 1,000 MG/NS 50 ML 1,000 MG/50 ML BAG 100 MG IVPB (00:50)
[2025-02-08] MEDS: PIPERACILLIN/TAZOBACTAM SOD 2.25 GM in SODIUM CHLORIDE 0.9% IV 50 ML 100 ML IVPB (02:44)
[2025-02-08 06:00] VITALS: BP 109/67; PULSE 78; RESP 18; TEMP 36.4; O2SAT 96
[2025-02-08 06:20] LABS: Hematocrit 36.3 % (42.0-52.0); Hemoglobin 12.0 g/dL (14.0-18.0); Mean Corpuscular HGB Conc 33.1 g/dl (32-36); Mean Corpuscular Hemoglobin 30.2 pg (26-34); Mean Corpuscular Volume 91.4 fl (80-100); Platelet Count Result 208 k/mm3 (150-375); Red Blood Count 3.97 M/mm3 (4.6-6.20); White Blood Count 10.0 K/mm3 (4.5-10.0)
[2025-02-08 07:02] LABS: Anion Gap 6 mmol/L (4-12); Blood Urea Nitrogen 14 mg/dL (9-20); Calcium 8.8 mg/dL (8.4-10.2); Carbon Dioxide 24 mmol/L (22-30); Chloride 103 mmol/L (98-107); Estimated CRCL calculation 63 ml/min; Estimated Glomerular Filt Rate > 60; Glucose 112 mg/dL (65-110); Magnesium 1.9 mg/dL (1.6-2.3); Potassium 3.5 mmol/L (3.4-5.0); Sodium 133 mmol/L (137-145)
[2025-02-08] MEDS: ENOXAPARIN 40 MG/0.4 ML SYRINGE SUB-Q (08:49)
[2025-02-08] MEDS: ROSUVASTATIN 20 MG TABLET PO (08:50)
[2025-02-08] MEDS: INDAPAMIDE 1.25 MG TABLET PO (08:50)
[2025-02-08] MEDS: FELODIPINE 5 MG TAB CR 10 MG PO (08:50)
[2025-02-08] MEDS: ASPIRIN 81 MG ENTERIC TABLET PO (08:50)
[2025-02-08] MEDS: DOCUSATE SODIUM 100 MG CAPSULE PO (08:55)
--- NOTE | 2025-02-08 13:35 | P.DS_ITS ---
DS: Admitting Diagnosis Discharge Date 02/08/25 Admitting Diagnosis Abdominal pain DS: Discharge Diagnosis Discharge Diagnosis (1) Incarcerated umbilical hernia: Code(s): K42.0 - Umbilical hernia with obstruction, without gangrene Status: Acute Assessment and Plan: Surgery consulted plan for OR today Okay for clear liquid diet after surgery Pain control management surgery (2) Cellulitis: Code(s): L03.90 - Cellulitis, unspecified Status: Acute Assessment and Plan: IV Zosyn and vancomycin Blood cultures pending (3) Diabetes: Code(s): E11.9 - Type 2 diabetes mellitus without complications Status: Acute Assessment and Plan: A1c pending SSI Will hold Lantus for tonight due to patient being NPO today, restart for tomorrow Accu-Dudley a.cLindsey HS (4) Hypertension: Code(s): I10 - Essential (primary) hypertension Status: Acute Assessment and Plan: Holding lisinopril due to soft pressures Plan patient was seen by surgery service and was taken to OR emergently s/p repair incarcerated umbical hernia POD# 1, pain is feeling better and had full liquid breakfast and tolerating, seen by surgery service today recommended to monitor patient one more day IV abx his cellulitis, will monitor and possibly discharge patient tomorrow. DS: Summary Hospital Course Hospital Course: patient was seen by surgery service and was taken to OR emergently s/p repair incarcerated umbical hernia POD# 2, pain is feeling better and had full liquid breakfast and tolerating, seen by surgery service today recommended to monitor patient one more day IV abx his cellulitis, will monitor and possibly discharge patient tomorrow. today patient is clinically stable, his symptoms have impro janett, will discharge today. Time Spent with Patient Time attestation: Total time spent providing and/or coordinating discharge services: Exam Narrative: Patient is comfortable, NAD HEENT: eyes are clear and none icteric LUNGS:CTA HEART: RR S1S2 ABD: BS+, Soft and nontender Lower extremities: no edema SKIN: nonjaundiced Neuro: grossly intact. DS: Data Data Completed and Pending Pending studies at discharge: Pending at discharge 02/06/25 15:52 Surgical [PTH] Routine Labs on day of discharge: Labs from last 24 hours 02/08/25 02/08/25 02/08/25 11:31 08:08 05:48 WBC 10.0 RBC 3.97 L Hgb 12.0 L Hct 36.3 L MCV 91.4 MCH 30.2 MCHC 33.1 RDW 13.1 Plt Count 208 MPV 11.3 H Sodium 133 L Potassium 3.5 Chloride 103 Carbon Dioxide 24 Anion Gap 6 BUN 14 D Creatinine 1.00 Estim Creat Clear Calc 63 Estimated GFR > 60 Glucose 112 H POC Capillary Glucose 115 H 114 H Calcium 8.8 Magnesium 1.9 02/07/25 02/07/25 20:44 17:03 WBC RBC Hgb Hct MCV MCH MCHC RDW Plt Count MPV Sodium Potassium Chloride Carbon Dioxide Anion Gap BUN Creatinine Estim Creat Clear Calc Estimated GFR Glucose POC Capillary Glucose 125 H 106 H Calcium Magnesium Discharge Plan Discharge Attending physician on discharge: Aure Manrique Consulting providers: Kamaljit Gonzalez; Tran Ayala; Baldemar Echols; Colton Garcia; Kinza Hernandez; Colton Crabtree; Michael Flowers Discharging Clinician: Macrina Hughes Patient Disposition: Home Activity: as tolerated Diet: heart healthy Discharge Instructions: 1. Do not lift more than 5-10 lbs for 4-6 weeks. 2. No driving until tomorrow or while on narcotic pain medication. 3. Call office if wound increasingly painful or bleeding, vomiting, or fever >101 degrees. 4. If no bowel movement for 3 days, take milk of magnesia or MiraLax. 5.Follow up with Dr. Gonzalez in outpatient clinic in 1 week. Call to schedule . DISCHARGE INSTRUCTION SHEET FOR HERNIA, GALLBLADDER AND APPENDIX SURGERIES DR. ALLENERA PATIENT TO TAKE HOME 1. May shower in 24 hours, no soaking in bath x 2weeks. 2. Call office for: * Wound increasingly painful or bleeding * Vomiting * Fever of greater than 101 degrees 3. If no bowel movement for three days, take 1 oz. (30 ml) Milk of Magnesia or MiraLax 17g 1 to 2 times daily. 4. No heavy lifting > 10-15 pounds x weeks for hernia repairs and 2 weeks for laparoscopic cholecystectomy or appendectomy. 5. No driving for 3 days or while taking narcotic pain medications. 6. Ice to surgical site for 48 hours (30 min on, then 30 min off). 7. Up walking 10-30 minutes three times per day. 8. Resume previous home medications. 9. Follow-up 10-14 days in office for wound check or as previously scheduled. () 10. Oral pain medications prescription to be sent to pharmacy. Take Tylenol 500mg every 6 hours and Ibuprofen 600mg every 6 hours for the first 2 days, then as needed. 11. NUTRITION: Start out by drinking fluids and increase your diet as tolerated. If you experience nausea, try dry toast, crackers, and 7-UP. If nausea or vomiting persists, contact your surgeon?s office. 12. Gallbladders-Low Fat Diet for 2 weeks (send care note of low fat diet) 13. Inguinal Hernias-wear scrotal support for 48 hours 14. Abdominal Hernias-if sent home with abdominal binder, wear for the first 2 weeks (may remove to shower or at night to sleep). patient to follow discharge care instruction from his surgeon and follow up as scheduled, patient to follow up with his primary care provider as soon as possible, patient is instructed if any symptoms redevelop to go to nearest ER. Revised November 2018 Patient Instructions: Antibiotic Form Patient Language: Persian Stand Alone Forms: General Discharge Information Follow-up/Referrals: Jett,QIAN Gandhi [Primary Care Provider] - Kamaljit Gonzalez MD [Physician] - 1 Week (Call to schedule appointment. Pt to follow-up with Dr. Gonzalez in the office on TuesdayFebruary 12.) Discharge Medications: New amoxicillin-pot clavulanate 875-125 mg tablet 1 tablet PO Q12H Qty: 14 0RF oxycodone 5 mg tablet 5 mg PO Q6H PRN (Reason: pain) Qty: 15 0RF docusate sodium 100 mg Capsule 100 mg PO BID Qty: 14 0RF Continued carvedilol 6.25 mg tablet 6.25 mg PO Q12H cyanocobalamin (vitamin B-12) 1,000 mcg Tablet 5,000 mcg PO DAILY quinapril 40 mg tablet 40 mg PO BID Patient Comments: [place] TAKES LISINOPRIL indapamide 1.25 mg tablet 1.25 mg PO BID felodipine 10 mg tablet extended release 24 hr 10 mg PO DAILY glucosamine-chondroitin [Osteo Bi-Flex] 250-200 mg Tablet 1 tablet PO BID pioglitazone-metformin 15-850 mg tablet 15 - 850 tablet PO QPM metformin [Glucophage] 850 mg Tablet 850 mg PO QPM Qty: 30 3RF (DME) pen needle, diabetic [Advocate Pen Needle] 29 gauge x 1/2 needle See Rx Instructions .ROUTE .MEDSUPPLY Qty: 90 0RF Rx Instructions: As directed (DME) blood-glucose meter [Blood Glucose Monitoring] Kit See Rx Instructions .ROUTE .MEDSUPPLY Qty: 1 0RF Rx Instructions: As directed (DME) Blood Glucose Test Strip See Rx Instructions .ROUTE .MEDSUPPLY Qty: 100 0RF Rx Instructions: As directed lisinopril 40 mg tablet 40 mg PO BID Ozempic 1 mg/dose (4 mg/3 mL) pen injector 1 mg SUBCUT WEEKLY Patient Comments: FRIDAYS rosuvastatin 20 mg tablet 20 mg PO DAILY aspirin [Adult Low Dose Aspirin] 81 mg tablet,delayed release (DR/EC) 81 mg PO DAILY insulin glargine [Lantus Solostar U-100 Insulin] 100 unit/mL (3 mL) insulin pen 46 unit SUB-Q QPM Date of admission: 02/07/25 14:34 Primary Care Provider: JettOksana Admitting Provider: Aure Manrique Attending physician on admission: Macrina Hughes Condition: Stable
--- NOTE | 2025-02-08 16:09 | WPDPN ---
Progress Note: A&P Assessment and Plan (1) Incarcerated umbilical hernia: Code(s): K42.0 - Umbilical hernia with obstruction, without gangrene Status: Acute Assessment and Plan: Resolved after open strangulated umbilical hernia repair without mesh. (2) Cellulitis: Code(s): L03.90 - Cellulitis, unspecified Status: Acute Assessment and Plan: Abd wall cellulitis improved. Slight redness remains, no abscess or drainage. WBC normalized. Ok to discharge home on oral abx (Augmentin) for 7 more days. No lifting more than 5-10 pounds for 4-6 weeks. Wear abd binder. Follow up office next week for wound check. Subjective Date/time seen: 02/08/25 16:09 Interval history: Pt feels good today. Tolerating regular diet. No bowel movement yet but is passing flatus. WBC normal now, no fever. Up walking in room. Exam GI: Other: Abd soft, slight stable redness around umbilicus. 2 small intact blisters near umbilicus. No drainage or fluctuance, no recurrent hernia. Objective Data Vital Signs Vital Signs: Vital Signs - 24 hr 02/07/25 20:43 02/07/25 20:43 02/07/25 22:00 Temperature 36.6 C Pulse Rate 83 82 Respiratory Rate 18 Blood Pressure 102/68 Pulse Oximetry 94 Oxygen Delivery Room Air 02/08/25 06:00 02/08/25 08:00 Temperature 36.4 C Pulse Rate 78 Respiratory Rate 18 Blood Pressure 109/67 Pulse Oximetry 96 Oxygen Delivery Room Air Intake/Output Intake/Output: Intake & Output 02/05/25 02/06/25 02/07/25 02/08/25 23:59 23:59 23:59 23:59 Intake Total 4514.6 2935.4 1600 Output Total 800 900 Balance 3714.6 2035.4 1600 Meds/Results Radiology Results: ITS Impressions Abdomen/Pelvis CT 02/06/25 09:28 IMPRESSION: 1. Umbilical hernia with incarcerated fat and associated phlegmonous inflammatory changes involving both the herniated fat and adjacent subcutaneous tissues. Recommend surgical evaluation due to evidence of fat incarceration and evolving inflammation. Labs Labs: Laboratory Results - last 24 hr 02/07/25 02/07/25 02/08/25 17:03 20:44 05:48 WBC 10.0 RBC 3.97 L Hgb 12.0 L Hct 36.3 L MCV 91.4 MCH 30.2 MCHC 33.1 RDW 13.1 Plt Count 208 MPV 11.3 H Sodium 133 L Potassium 3.5 Chloride 103 Carbon Dioxide 24 Anion Gap 6 BUN 14 D Creatinine 1.00 Estim Creat Clear Calc 63 Estimated GFR > 60 Glucose 112 H POC Capillary Glucose 106 H 125 H Calcium 8.8 Magnesium 1.9 02/08/25 02/08/25 08:08 11:31 WBC RBC Hgb Hct MCV MCH MCHC RDW Plt Count MPV Sodium Potassium Chloride Carbon Dioxide Anion Gap BUN Creatinine Estim Creat Clear Calc Estimated GFR Glucose POC Capillary Glucose 114 H 115 H Calcium Magnesium
== END 2025-02-08 14:20 | disposition home or self-care (01) | DRG 354 ==
LOC: ANHED 10:44 → ANH3MEDSUR 11:53
PROVIDERS: Emergency Medicine; Nurse Practitioner Gerontology; Surgery; Admitting Provider Internal Medicine; Emergency Provider Registered Nurse; PCP Physician Assistant; Visit Provider Family Medicine
PROC: 0WQF0ZZ Repair Abdominal Wall, Open Approach (ICD-10-PCS; principal; 2025-02-06 15:30)
DX: K42.0 Umbilical hernia with obstruction, without gangrene (principal); L03.311 Cellulitis of abdominal wall; E11.9 Type 2 diabetes mellitus without complications; E78.5 Hyperlipidemia, unspecified; I10 Essential (primary) hypertension; Z79.4 Long term (current) use of insulin; Z79.84 Long term (current) use of oral hypoglycemic drugs; Z79.85 Long-term (current) use of injectable non-insulin antidiabetic drugs; Z79.82 Long term (current) use of aspirin; Z90.49 Acquired absence of other specified parts of digestive tract
CPT/HCPCS: 36415; 74177; 80048; 80053; 81001; 82948; 83036; 83605; 83690; 83735; 85025; 85027; 85610; 85652; 85730; 86140; 87040; 87086; 88304; 93005; 96365; 96366; 96367; 96375; 99285; A9270; G0378; J0330; J0612; J1650; J2003; J2004; J2270; J2371; J2405; J2543; J2704; J3010; J3373; J7030; J7120; Q9967